=== PATIENT | female | born 1955 | race Two or more races ===

== ENCOUNTER 2020-10-15 18:53 | Inpatient (IN) | payer MEDICAID ==
[~2020-10-15] VITALS: Ht 165.1 cm; Wt 160.9 kg
[~2020-10-15 18:53] MED LIST: WARF10TA PO
[2020-10-15] MEDS ORDERED: IPRATROPIUM BROM 0.5 MG/2.5ML INH SOL HHN ONE (20:30)
[2020-10-15] MEDS ORDERED: ALBUTEROL SULF 2.5 MG/0.5ML(0.5%) NEB SOLN HHN ONE (20:30)
[2020-10-15 20:39] LABS: Basophils # (auto) 0.1 10 ^3/uL (0-0.2); Eosinophils # (auto) 0.1 10 ^3/uL (0-0.8); Lymphocytes # (auto) 0.9 10 ^3/uL (0.4-5.4); Mean Corpuscular Volume 67.2 fL (80.0-100.0); Neutrophils # (auto) 2.9 10 ^3/uL (1.6-8.6); White Blood Cell 4.4 10^3/uL (4.4-10.8)
[2020-10-15 20:42] LABS: Basophils % (auto) 1.1 % (0.0-2.0); Eosinophils % (auto) 1.5 % (0.0-7.0); Hematocrit 18.1 % (36.0-46.0); Lymphocytes % (auto) 21.1 % (10.0-50.0); Mean Corpuscular Hemoglobin 19.4 pg (28.0-32.0); Mean Corpuscular Hgb Conc. 28.8 g/dL (32.0-36.0); Monocytes # (auto) 0.4 10 ^3/uL (0-1.3); Monocytes % (auto) 9.3 % (0.0-12.0); Nucleated Red Blood Cells % 0.3 %
[2020-10-15 20:49] LABS: Red Cell Distribution Width 20.7 % (11.8-14.3)
[2020-10-15 20:55] LABS: Hemoglobin 5.2 g/dL (12.2-16.2)
[2020-10-15 20:59] LABS: Albumin 3.4 g/dL (3.4-5.0); BUN/Creatinine Ratio 22.7; Calcium 8.6 mg/dL (8.5-10.1); Potassium 4.1 mmol/L (3.5-5.1)
[2020-10-15 21:04] LABS: Bilirubin, Total 0.6 mg/dL (0.2-1.0); Total Protein 7.1 g/dL (6.4-8.2)
[2020-10-15] MEDS ORDERED: DEXTROSE (50%) 50ML SYRG IV PRN (22:30)
[2020-10-15] MEDS ORDERED: FUROSEMIDE 40 MG/4 ML VIAL IV ONE (22:30)
[2020-10-15] MEDS ORDERED: MORPHINE SULFATE INJECTION 2 MG/ML SYRG IV PRN (22:30)
[2020-10-15] MEDS ORDERED: ACETAMINOPHEN 325 MG TAB PO PRN (22:30)
[2020-10-15] MEDS ORDERED: ONDANSETRON HCL 4 MG/2 ML VIAL IV PRN (22:30)
[2020-10-15] MEDS ORDERED: NITROGLYCERIN 0.4 MG SL TAB SL PRN (22:30)
[2020-10-16] VITALS (18 sets, daily range): BP systolic 108–157; BP diastolic 51–101
[2020-10-16] MEDS: HYDROcodone-ACET 5/325MG TAB PO PRN ×2 (01:01→09:02)
[2020-10-16 03:20] LABS: Urine Bacteria FEW /hpf (None Seen); Urine Blood 1+ /uL (Negative); Urine Hyaline Cast FEW /lpf (0 - 2); Urine Mucus FEW (None Seen); Urine Specific Gravity 1.019 (1.001-1.035); Urine WBC 567 /hpf (0 - 5)
[2020-10-16] MEDS: MORPHINE SULFATE INJECTION 2 MG/ML SYRG IV PRN ×2 (03:38→11:45)
[2020-10-16] MEDS ORDERED: GLIP5TAB12 PO (05:26)
[2020-10-16] MEDS ORDERED: LISI40TA11 PO (05:26)
[2020-10-16] MEDS ORDERED: CHOL20007 PO (06:00)
[2020-10-16] MEDS ORDERED: ASPI-498 (06:00)
[2020-10-16] MEDS ORDERED: TICA90TA PO (06:00)
[2020-10-16] MEDS ORDERED: CARV25TA PO (06:00)
[2020-10-16] MEDS ORDERED: DILT30TA PO (06:00)
[2020-10-16] MEDS ORDERED: CAR125T OR (06:00)
[2020-10-16] MEDS ORDERED: HYDR-4798 PO (06:00)
[2020-10-16] MEDS: InsuLIN REG 1unit/0.01ml Soln (100units/ml) SC SCH ×4 (06:57→21:43)
[2020-10-16] MEDS: ACCU-CHEK COMFORT CURVE STRIP VI SCH ×4 (06:57→21:43)
[2020-10-16] MEDS: LISINOPRIL 20 MG TAB PO SCH ×2 (09:20→22:55)
[2020-10-16] MEDS: PANTOPRAZOLE 40 MG TAB PO SCH (09:21)
[2020-10-16] MEDS ORDERED: ENOXAPARIN SOD 40 MG/0.4 ML SYRINGE SC SCH (10:00)
[2020-10-16] MEDS: ASPirin 81 mg TAB PO SCH (10:00)
[2020-10-16 11:00] LABS: Basophils # (auto) 0 10 ^3/uL (0-0.2); Eosinophils # (auto) 0.1 10 ^3/uL (0-0.8); Lymphocytes # (auto) 0.6 10 ^3/uL (0.4-5.4); Mean Corpuscular Hemoglobin 20.7 pg (28.0-32.0)
[2020-10-16 11:02] LABS: Basophils % (auto) 0.9 % (0.0-2.0); Eosinophils % (auto) 1.5 % (0.0-7.0); Hematocrit 22.4 % (36.0-46.0); Lymphocytes % (auto) 10.9 % (10.0-50.0); Mean Corpuscular Hgb Conc. 29.7 g/dL (32.0-36.0); Mean Corpuscular Volume 69.6 fL (80.0-100.0); Monocytes # (auto) 0.5 10 ^3/uL (0-1.3); Monocytes % (auto) 9.6 % (0.0-12.0); Neutrophils % (auto) 77.1 % (37.0-80.0); Nucleated Red Blood Cells % 0.7 %; Red Blood Cells 3.21 10^6/uL (4.0-5.20); White Blood Cell 5.2 10^3/uL (4.4-10.8)
[2020-10-16 11:16] LABS: Red Cell Distribution Width 22.2 % (11.8-14.3)
[2020-10-16 11:18] LABS: BUN/Creatinine Ratio 22.5; Calcium 8.4 mg/dL (8.5-10.1); Magnesium 2.2 mg/dL (1.6-2.6); Potassium 3.7 mmol/L (3.5-5.1)
[2020-10-16 11:19] LABS: Hemoglobin 6.7 g/dL (12.2-16.2)
[2020-10-16] MEDS ORDERED: FUROSEMIDE 20 MG/2 ML VIAL IV ONE ×2 (11:45)
[2020-10-16 13:57] LABS: Hematocrit 23.1 % (36.0-46.0)
[2020-10-16 14:38] LABS: Hemoglobin 6.9 g/dL (12.2-16.2)
[2020-10-16] MEDS: HYDROcodone-ACET 10/325MG TAB PO PRN (18:03)
[2020-10-16] MEDS: POLYETHYLENE GLYCOL 17 GM PWDR PO SCH (18:08)
[2020-10-16] MEDS: DOCUSATE SOD 100 MG CAP PO SCH ×2 (18:09→22:54)
[2020-10-16] MEDS ORDERED: MORPHINE SULFATE INJECTION 2 MG/ML SYRG IV PRN (20:15)
[2020-10-16] MEDS: ATORVASTATIN 20 MG TAB PO SCH (22:54)
[2020-10-17] VITALS (7 sets, daily range): BP systolic 109–138; BP diastolic 63–98
[2020-10-17 01:25] LABS: Hematocrit 25.9 % (36.0-46.0); Hemoglobin 7.9 g/dL (12.2-16.2)
[2020-10-17 01:45] LABS: % Iron Saturation 10.1 % (15-50)
[2020-10-17 05:12] LABS: Hematocrit 26.3 % (36.0-46.0)
[2020-10-17 05:14] LABS: Hemoglobin 8.2 g/dL (12.2-16.2)
[2020-10-17] MEDS: IPRATROPIUM BROM 0.5 MG/2.5ML INH SOL NEB PRN ×2 (05:35→11:49)
[2020-10-17] MEDS: ALBUTEROL SULF 2.5 MG/0.5ML(0.5%) NEB SOLN NEB PRN ×2 (05:35→11:49)
[2020-10-17] MEDS: ACCU-CHEK COMFORT CURVE STRIP VI SCH ×4 (05:42→21:44)
[2020-10-17] MEDS: DOCUSATE SOD 100 MG CAP PO SCH ×3 (05:42→21:43)
[2020-10-17] MEDS: InsuLIN REG 1unit/0.01ml Soln (100units/ml) SC SCH ×4 (05:57→21:49)
[2020-10-17] MEDS: HYDROcodone-ACET 10/325MG TAB PO PRN ×3 (06:38→21:44)
[2020-10-17] MEDS: POLYETHYLENE GLYCOL 17 GM PWDR PO SCH (09:45)
[2020-10-17] MEDS: LISINOPRIL 20 MG TAB PO SCH ×2 (09:46→21:48)
[2020-10-17] MEDS: PANTOPRAZOLE 40 MG TAB PO SCH (09:46)
[2020-10-17] MEDS: ASPirin 81 mg TAB PO SCH (09:46)
[2020-10-17] MEDS ORDERED: TICAGRELOR 90 MG TAB PO SCH (10:00)
[2020-10-17] MEDS: FERROUS SULFATE 325mg EC TAB PO SCH ×2 (13:00→18:06)
[2020-10-17 17:43] LABS: Albumin 3.3 g/dL (3.4-5.0); Calcium 8.6 mg/dL (8.5-10.1); Potassium 3.5 mmol/L (3.5-5.1)
[2020-10-17 17:44] LABS: % Iron Saturation 64.1 % (15-50)
[2020-10-17 17:46] LABS: BUN/Creatinine Ratio 18.8; Bilirubin, Total 0.8 mg/dL (0.2-1.0); CRP High Sensitivity 0.83 mg/dL (< 0.3); Total Protein 7.3 g/dL (6.4-8.2)
[2020-10-17 18:01] LABS: Ferritin 8.1 ng/mL (10-322)
[2020-10-17] MEDS: ATORVASTATIN 20 MG TAB PO SCH (21:43)
[2020-10-18] MEDS: HYDROcodone-ACET 10/325MG TAB PO PRN ×2 (01:42→10:58)
[2020-10-18 05:00] VITALS: BP 144/107
[2020-10-18 05:10] LABS: Basophils # (auto) 0 10 ^3/uL (0-0.2); Basophils % (auto) 0.6 % (0.0-2.0); Eosinophils # (auto) 0.1 10 ^3/uL (0-0.8); Eosinophils % (auto) 2.6 % (0.0-7.0); Hematocrit 26.1 % (36.0-46.0); Hemoglobin 8.1 g/dL (12.2-16.2); Mean Corpuscular Hemoglobin 22.7 pg (28.0-32.0); Mean Corpuscular Hgb Conc. 31.2 g/dL (32.0-36.0); Mean Corpuscular Volume 72.8 fL (80.0-100.0); Monocytes # (auto) 0.5 10 ^3/uL (0-1.3); Neutrophils # (auto) 3.8 10 ^3/uL (1.6-8.6); Neutrophils % (auto) 69.8 % (37.0-80.0); Nucleated Red Blood Cells % 0.3 %; Red Blood Cells 3.59 10^6/uL (4.0-5.20); White Blood Cell 5.4 10^3/uL (4.4-10.8)
[2020-10-18 05:11] LABS: Red Cell Distribution Width 23.8 % (11.8-14.3)
[2020-10-18 05:39] LABS: Potassium 3.7 mmol/L (3.5-5.1)
[2020-10-18 05:44] LABS: BUN/Creatinine Ratio 20.4; Calcium 8.7 mg/dL (8.5-10.1); Magnesium 2.1 mg/dL (1.6-2.6)
[2020-10-18] MEDS: DOCUSATE SOD 100 MG CAP PO SCH ×2 (06:15→14:00)
[2020-10-18] MEDS: ACCU-CHEK COMFORT CURVE STRIP VI SCH ×2 (06:15→11:17)
[2020-10-18] MEDS: InsuLIN REG 1unit/0.01ml Soln (100units/ml) SC SCH ×2 (06:15→11:17)
[2020-10-18 07:40] VITALS: BP 133/82
[2020-10-18] MEDS: FERROUS SULFATE 325mg EC TAB PO SCH ×2 (08:13→12:11)
[2020-10-18 08:42] VITALS: BP 133/82
[2020-10-18] MEDS: ASPirin 81 mg TAB PO SCH (09:47)
[2020-10-18] MEDS: PANTOPRAZOLE 40 MG TAB PO SCH (09:47)
[2020-10-18] MEDS: POLYETHYLENE GLYCOL 17 GM PWDR PO SCH (09:48)
[2020-10-18] MEDS: LISINOPRIL 20 MG TAB PO SCH (09:48)
[2020-10-18] MEDS ORDERED: FER325T PO (11:56)
[2020-10-18] MEDS ORDERED: DOCU100C10 PO (11:56)
[2020-10-18 12:55] LABS: Free T4 (Free Thyroxine) 1.14 ng/dL (0.89-1.76)
[2020-10-18 12:56] LABS: Folate (Folic Acid) 22.6 ng/mL (5.38-24)
[2020-10-18 13:00] VITALS: BP 144/90
[2020-10-18 15:13] VITALS: BP 144/90
== END 2020-10-18 17:10 | disposition home health service (06) | DRG 663 ==
LOC: ER 18:53 → TELE 22:16 → TELE-CENTR 10-16 03:00
PROVIDERS: ADMIT Internal Medicine; ATTEND Internal Medicine
PROC: 30233N1 Transfusion of Nonautologous Red Blood Cells into Peripheral Vein, Percutaneous Approach (ICD-10-PCS; principal; 2020-10-16)
DX: D50.9 Iron deficiency anemia, unspecified (principal); E11.649 Type 2 diabetes mellitus with hypoglycemia without coma; I11.0 Hypertensive heart disease with heart failure; I50.9 Heart failure, unspecified; J44.9 Chronic obstructive pulmonary disease, unspecified; Z68.43 Body mass index [BMI] 50.0-59.9, adult; E66.2 Morbid (severe) obesity with alveolar hypoventilation; Z20.822 Contact with and (suspected) exposure to COVID-19; R09.02 Hypoxemia; K59.00 Constipation, unspecified; M19.90 Unspecified osteoarthritis, unspecified site; E78.5 Hyperlipidemia, unspecified; I25.10 Atherosclerotic heart disease of native coronary artery without angina pectoris; Z79.82 Long term (current) use of aspirin; Z79.84 Long term (current) use of oral hypoglycemic drugs; Z95.5 Presence of coronary angioplasty implant and graft; Z79.899 Other long term (current) drug therapy; Z83.3 Family history of diabetes mellitus; Z79.01 Long term (current) use of anticoagulants; Z79.02 Long term (current) use of antithrombotics/antiplatelets
CPT/HCPCS: 36415; 36430; 71046; 76856; 80048; 80053; 81001; 82270; 82607; 82668; 82728; 82746; 82962; 83010; 83540; 83550; 83615; 83735; 83880; 84439; 84443; 84484; 85014; 85018; 85025; 85045; 85652; 86141; 86850; 86880; 86885; 86900; 86901; 86920; 87426; 93005; 93970; 94640; 96374; 96375; 97163; 99291; G0378; J1815

== ENCOUNTER 2021-01-09 11:16 | Inpatient (IN) | payer MEDICAID ==
[~2021-01-09] VITALS: Ht 165.1 cm; Wt 162.0 kg
[~2021-01-09 11:16] MED LIST changes: +ASPI-498; +CAR125T OR; +CARV25TA PO; +CHOL20007 PO; +DILT30TA PO; +DOCU100C10 PO; +FER325T PO; +GLIP5TAB12 PO; +HYDR-4798 PO; +LISI40TA11 PO; -WARF10TA PO
[2021-01-09] MEDS ORDERED: FUROSEMIDE 40 MG/4 ML VIAL IV ONE (12:15)
[2021-01-09 12:25] LABS: Basophils # (auto) 0 10 ^3/uL (0-0.2); Eosinophils # (auto) 0.1 10 ^3/uL (0-0.8); Hemoglobin 7.7 g/dL (12.2-16.2); Lymphocytes # (auto) 0.6 10 ^3/uL (0.4-5.4); Mean Corpuscular Volume 76.7 fL (80.0-100.0); Monocytes # (auto) 0.3 10 ^3/uL (0-1.3); Neutrophils # (auto) 2.4 10 ^3/uL (1.6-8.6)
[2021-01-09 12:27] LABS: Basophils % (auto) 0.7 % (0.0-2.0); Eosinophils % (auto) 2.9 % (0.0-7.0); Hematocrit 25.7 % (36.0-46.0); Lymphocytes % (auto) 18.1 % (10.0-50.0); Mean Corpuscular Hemoglobin 23.1 pg (28.0-32.0); Mean Corpuscular Hgb Conc. 30.2 g/dL (32.0-36.0); Monocytes % (auto) 9.4 % (0.0-12.0); Neutrophils % (auto) 68.9 % (37.0-80.0); Red Blood Cells 3.35 10^6/uL (4.0-5.20); White Blood Cell 3.5 10^3/uL (4.4-10.8)
[2021-01-09 12:30] LABS: Red Cell Distribution Width 21.7 % (11.8-14.3)
[2021-01-09 12:31] LABS: Albumin 3.1 g/dL (3.4-5.0); Calcium 8.3 mg/dL (8.5-10.1); Potassium 4.3 mmol/L (3.5-5.1)
[2021-01-09 12:37] LABS: BUN/Creatinine Ratio 23.5; Bilirubin, Total 0.4 mg/dL (0.2-1.0); Total Protein 7.5 g/dL (6.4-8.2)
[2021-01-09 17:42] LABS: Urine Bacteria FEW /hpf (None Seen); Urine Blood Negative /uL (Negative); Urine Hyaline Cast FEW /lpf (0 - 2); Urine Mucus FEW (None Seen); Urine Specific Gravity 1.024 (1.001-1.035); Urine WBC 32 /hpf (0 - 5)
[2021-01-09] MEDS ORDERED: MORPHINE SULF INJ 2 MG/ML SYRINGE 1ML IV PRN (18:15)
[2021-01-09] MEDS ORDERED: NITROGLYCERIN 0.4 MG SL TAB SL PRN (18:15)
[2021-01-09 22:26] VITALS: BP 131/85
[2021-01-09 22:40] VITALS: BP 131/85
[2021-01-09] MEDS: ONDANSETRON HCL 4 MG/2 ML VIAL IV PRN (23:30)
[2021-01-09] MEDS: MORPHINE SULF INJ 2 MG/ML SYRINGE 1ML IV PRN (23:30)
[2021-01-09] MEDS: POTASSIUM CHL 20 Meq TABLET PO SCH (23:30)
[2021-01-10] MEDS: LEVALBUTEROL HCL 1.25 MG/3 ML NEB NEB SCH ×5 (00:29→23:48)
[2021-01-10] MEDS ORDERED: PNEUMOCOCCAL VACC POLYS 25 MCG/0.5 ML VIAL IM ONE (02:15)
[2021-01-10] MEDS: ONDANSETRON HCL 4 MG/2 ML VIAL IV PRN (04:25)
[2021-01-10] MEDS: MORPHINE SULF INJ 2 MG/ML SYRINGE 1ML IV PRN ×3 (04:25→23:10)
[2021-01-10 05:08] VITALS: BP 125/82
[2021-01-10 06:01] LABS: Calcium 8.7 mg/dL (8.5-10.1); Potassium 4.4 mmol/L (3.5-5.1)
[2021-01-10 06:03] LABS: BUN/Creatinine Ratio 26.8
[2021-01-10] MEDS: BUMETANIDE 2.5mg/10ml (0.25 mg/ml) INJ IV SCH ×2 (06:07→18:37)
[2021-01-10 09:00] VITALS: BP 113/90
[2021-01-10] MEDS: cefTRIAXone 1GM/50ML D5W 50 ML IV SCH (10:38)
[2021-01-10] MEDS: POTASSIUM CHL 20 Meq TABLET PO SCH ×2 (10:38→23:05)
[2021-01-10] MEDS: FAMOTIDINE 20 MG TAB PO SCH (10:39)
[2021-01-10] MEDS: ENOXAPARIN SOD 40 MG/0.4 ML SYRINGE SC SCH (10:39)
[2021-01-10] MEDS: IPRATROPIUM BROM 0.5 MG/2.5ML INH SOL NEB SCH ×2 (11:46→19:26)
[2021-01-10 13:00] VITALS: BP 128/85
[2021-01-10] MEDS: MAGNESIUM SULFATE 1GM/100ML 100 ML IV SCH ×2 (13:01→14:15)
[2021-01-10 17:00] VITALS: BP 106/54
[2021-01-10 20:00] VITALS: BP 106/54
[2021-01-10 22:00] VITALS: BP 118/66
[2021-01-11] MEDS: MORPHINE SULF INJ 2 MG/ML SYRINGE 1ML IV PRN ×2 (03:03→14:41)
[2021-01-11 05:00] VITALS: BP 129/65
[2021-01-11] MEDS: IPRATROPIUM BROM 0.5 MG/2.5ML INH SOL NEB SCH ×3 (05:43→19:07)
[2021-01-11] MEDS: LEVALBUTEROL HCL 1.25 MG/3 ML NEB NEB SCH ×3 (05:43→19:07)
[2021-01-11 06:07] LABS: BUN/Creatinine Ratio 24.6; Calcium 8.8 mg/dL (8.5-10.1); Potassium 3.9 mmol/L (3.5-5.1)
[2021-01-11] MEDS: BUMETANIDE 2.5mg/10ml (0.25 mg/ml) INJ IV SCH (06:11)
[2021-01-11 09:00] VITALS: BP 117/71
[2021-01-11] MEDS: cefTRIAXone 1GM/50ML D5W 50 ML IV SCH (09:48)
[2021-01-11] MEDS: POTASSIUM CHL 20 Meq TABLET PO SCH ×2 (09:48→23:05)
[2021-01-11] MEDS: FAMOTIDINE 20 MG TAB PO SCH (09:48)
[2021-01-11] MEDS: ENOXAPARIN SOD 40 MG/0.4 ML SYRINGE SC SCH (09:49)
[2021-01-11 13:00] VITALS: BP 152/79
[2021-01-11 17:00] VITALS: BP 115/73
[2021-01-11] MEDS ORDERED: HYDROcodone-ACET 10/325MG TAB PO PRN (17:30)
[2021-01-11] MEDS: HYDROcodone-ACET 10/325MG TAB PO PRN (17:36)
[2021-01-11 22:00] VITALS: BP 125/74
[2021-01-11] MEDS: SENNA 8.6 MG TAB PO SCH (23:05)
[2021-01-12] MEDS: HYDROcodone-ACET 10/325MG TAB PO PRN ×4 (00:39→19:02)
[2021-01-12] MEDS: LEVALBUTEROL HCL 1.25 MG/3 ML NEB NEB SCH ×4 (00:44→18:46)
[2021-01-12 05:00] VITALS: BP 115/69
[2021-01-12] MEDS: IPRATROPIUM BROM 0.5 MG/2.5ML INH SOL NEB SCH ×3 (07:05→18:47)
[2021-01-12 09:00] VITALS: BP 105/63
[2021-01-12] MEDS: cefTRIAXone 1GM/50ML D5W 50 ML IV SCH (09:46)
[2021-01-12] MEDS: POTASSIUM CHL 20 Meq TABLET PO SCH ×2 (09:47→22:00)
[2021-01-12] MEDS: BUMETANIDE 2.5mg/10ml (0.25 mg/ml) INJ IV SCH (09:47)
[2021-01-12] MEDS: FAMOTIDINE 20 MG TAB PO SCH (09:48)
[2021-01-12] MEDS: ENOXAPARIN SOD 40 MG/0.4 ML SYRINGE SC SCH (09:49)
[2021-01-12 13:59] VITALS: BP 138/98
[2021-01-12 17:00] VITALS: BP 112/64
[2021-01-12 18:52] VITALS: BP 112/64
[2021-01-12] MEDS: SENNA 8.6 MG TAB PO SCH (22:00)
[2021-01-12 22:05] VITALS: BP 126/95
[2021-01-13] MEDS: LEVALBUTEROL HCL 1.25 MG/3 ML NEB NEB SCH ×3 (00:13→11:26)
[2021-01-13] MEDS: HYDROcodone-ACET 10/325MG TAB PO PRN ×3 (01:01→13:12)
[2021-01-13 05:21] VITALS: BP 133/92
[2021-01-13] MEDS: IPRATROPIUM BROM 0.5 MG/2.5ML INH SOL NEB SCH ×2 (06:50→11:26)
[2021-01-13 09:00] VITALS: BP 124/72
[2021-01-13] MEDS: POTASSIUM CHL 20 Meq TABLET PO SCH (09:10)
[2021-01-13] MEDS: BUMETANIDE 2.5mg/10ml (0.25 mg/ml) INJ IV SCH (09:10)
[2021-01-13] MEDS: FAMOTIDINE 20 MG TAB PO SCH (09:11)
[2021-01-13] MEDS: ENOXAPARIN SOD 40 MG/0.4 ML SYRINGE SC SCH (09:11)
[2021-01-13] MEDS: cefTRIAXone 1GM/50ML D5W 50 ML IV SCH (09:11)
[2021-01-13] MEDS ORDERED: BUME2TAB5 PO (12:43)
[2021-01-13] MEDS ORDERED: CAR125T OR (12:43)
[2021-01-13] MEDS ORDERED: LISI40TA11 PO (12:43)
[2021-01-13] MEDS ORDERED: CIPR500T4 PO (12:43)
[2021-01-13 13:28] VITALS: BP 142/64
[2021-01-13 15:46] VITALS: BP 124/72
[2021-01-13 16:33] VITALS: BP 140/78
== END 2021-01-13 17:42 | disposition home or self-care (01) | DRG 194 ==
LOC: ER 11:16 → TELE 18:09 → TELE-WESTW 22:30
PROVIDERS: ADMIT Hospitalist; ATTEND Hospitalist
PROC: 5A09357 Assistance with Respiratory Ventilation, Less than 24 Consecutive Hours, Continuous Positive Airway Pressure (ICD-10-PCS; principal; 2021-01-09)
PROC: 5A09357 Assistance with Respiratory Ventilation, Less than 24 Consecutive Hours, Continuous Positive Airway Pressure (ICD-10-PCS; 2021-01-10)
PROC: 5A09357 Assistance with Respiratory Ventilation, Less than 24 Consecutive Hours, Continuous Positive Airway Pressure (ICD-10-PCS; 2021-01-11)
PROC: 5A09357 Assistance with Respiratory Ventilation, Less than 24 Consecutive Hours, Continuous Positive Airway Pressure (ICD-10-PCS; 2021-01-12)
DX: I13.0 Hypertensive heart and chronic kidney disease with heart failure and stage 1 through stage 4 chronic kidney disease, or unspecified chronic kidney disease (principal); J96.01 Acute respiratory failure with hypoxia; J96.02 Acute respiratory failure with hypercapnia; E11.22 Type 2 diabetes mellitus with diabetic chronic kidney disease; E44.1 Mild protein-calorie malnutrition; E66.2 Morbid (severe) obesity with alveolar hypoventilation; I48.91 Unspecified atrial fibrillation; N18.9 Chronic kidney disease, unspecified; N39.0 Urinary tract infection, site not specified; Z20.822 Contact with and (suspected) exposure to COVID-19; Z68.43 Body mass index [BMI] 50.0-59.9, adult; Z82.49 Family history of ischemic heart disease and other diseases of the circulatory system; Z83.3 Family history of diabetes mellitus; I50.43 Acute on chronic combined systolic (congestive) and diastolic (congestive) heart failure
CPT/HCPCS: 36415; 36600; 71045; 80048; 80053; 81001; 82805; 83880; 84439; 84443; 84484; 85025; 87426; 93005; 93306; 93970; 94640; 94645; 94660; 96374; G0378; J0696; J2405

== ENCOUNTER 2021-04-13 18:29 | Inpatient (IN) | payer MEDICAID ==
[~2021-04-13] VITALS: Ht 162.6 cm; Wt 122.1 kg
[~2021-04-13 18:29] MED LIST changes: -ASPI-498; +ASPI-498 PO; +BUME2TAB5 PO; +CIPR500T4 PO; -HYDR-4798 PO
[2021-04-13] MEDS ORDERED: DEXTROSE 50% SYRINGE 50 ML IV ONE (20:00)
[2021-04-13 20:19] VITALS: BP 108/53
[2021-04-13 20:20] VITALS: BP 108/53
[2021-04-13 20:37] LABS: Basophils # (auto) 0 10 ^3/uL (0-0.2); Eosinophils # (auto) 0 10 ^3/uL (0-0.8); Lymphocytes # (auto) 0.4 10 ^3/uL (0.4-5.4); Monocytes # (auto) 0.2 10 ^3/uL (0-1.3); Monocytes % (auto) 10.7 % (0.0-12.0); Neutrophils # (auto) 1.5 10 ^3/uL (1.6-8.6); White Blood Cell 2.2 10^3/uL (4.4-10.8)
[2021-04-13 20:42] LABS: Basophils % (auto) 0.5 % (0.0-2.0); Eosinophils % (auto) 0.2 % (0.0-7.0); Hematocrit 44.3 % (36.0-46.0); Hemoglobin 14.5 g/dL (12.2-16.2); Mean Corpuscular Hemoglobin 30.8 pg (28.0-32.0); Mean Corpuscular Hgb Conc. 32.6 g/dL (32.0-36.0); Mean Corpuscular Volume 94.4 fL (80.0-100.0); Neutrophils % (auto) 70.6 % (37.0-80.0); Nucleated Red Blood Cells % 1.2 %
[2021-04-13 20:43] LABS: Red Cell Distribution Width 22.6 % (11.8-14.3)
[2021-04-13 20:47] LABS: Albumin 3.3 g/dL (3.4-5.0); Calcium 8.5 mg/dL (8.5-10.1); Potassium 3.9 mmol/L (3.5-5.1)
[2021-04-13 20:49] LABS: BUN/Creatinine Ratio 30.6
[2021-04-13 20:54] LABS: Bilirubin, Total 0.7 mg/dL (0.2-1.0); Total Protein 7.8 g/dL (6.4-8.2)
[2021-04-13] MEDS ORDERED: DEXTROSE (50%) 50ML SYRG IV ONE ×2 (21:00→21:15)
[2021-04-13] MEDS ORDERED: HYDROcodone-ACET 5/325MG TAB PO ONE (21:00)
[2021-04-13] MEDS ORDERED: SODIUM CHLORIDE 0.9% 1,000 ML IV ONE (21:45)
[2021-04-13 23:10] VITALS: BP 96/52
[2021-04-13] MEDS ORDERED: DexAMETHasone SOD PHOS 10MG/1ML VIAL INJ IV ONE (23:30)
[2021-04-13] MEDS ORDERED: AZITHROMYCIN 500MG/ 250ML 250 ML IV ONE (23:30)
[2021-04-13] MEDS ORDERED: ASPirin 325 MG TAB PO ONE (23:30)
[2021-04-14] MEDS ORDERED: cefTRIAXone 1GM/50ML D5W 50 ML IV ONE
[2021-04-14 00:35] LABS: INR 1.11 (0.9-1.15)
[2021-04-14 00:48] VITALS: BP 96/52
[2021-04-14] MEDS ORDERED: IOHEXOL 350 MG/ML 100ML IJ ONE (01:42)
[2021-04-14] MEDS ORDERED: NITROGLYCERIN 0.4 MG SL TAB SL PRN (02:00)
[2021-04-14] MEDS ORDERED: DOCUSATE SOD 100 MG CAP PO PRN (02:00)
[2021-04-14] MEDS ORDERED: MORPHINE SULFATE INJECTION 2 MG/ML SYRG IV PRN (02:00)
[2021-04-14 02:10] VITALS: BP 137/81
[2021-04-14] MEDS: D5W/SOD CHL 0.45% 1,000 ML IV SCH ×2 (03:04→21:56)
[2021-04-14] MEDS: ASCORBIC ACID 500 MG TAB PO SCH ×2 (03:05→10:27)
[2021-04-14 04:40] VITALS: BP 111/72
[2021-04-14] MEDS: HYDROcodone-ACET 5/325MG TAB PO PRN ×3 (04:45→21:56)
[2021-04-14 07:24] LABS: Urine Bacteria FEW /hpf (None Seen); Urine Blood Negative /uL (Negative); Urine Mucus FEW (None Seen); Urine Specific Gravity 1.022 (1.001-1.035); Urine WBC 8 /hpf (0 - 5)
[2021-04-14] MEDS: ALBUTEROL SULF HFA 90MCG INH 200DOSE IN PRN ×2 (09:47→23:24)
[2021-04-14] MEDS: BUDESONIDE (INHALATION) 180 MCG IH IN SCH ×2 (09:47→19:30)
[2021-04-14] MEDS ORDERED: ENOXAPARIN SOD 40 MG/0.4 ML SYRINGE SC SCH (10:00)
[2021-04-14] MEDS ORDERED: AZITHROMYCIN 500MG/ 250ML 250 ML IV SCH (10:00)
[2021-04-14] MEDS ORDERED: REMDESIVIR PER PHARMACY 0 ML IV SCH (10:15)
[2021-04-14] MEDS ORDERED: DEXTROSE (50%) 50ML SYRG IV PRN (10:15)
[2021-04-14] MEDS: DexAMETHasone SOD PHOS 10MG/1ML VIAL INJ IV SCH (10:27)
[2021-04-14] MEDS: DOXYCYCLINE 100MG/250ML 250 ML IV SCH ×2 (10:27→21:56)
[2021-04-14] MEDS: ZINC SULFATE 220mg CAP or TAB PO SCH (10:27)
[2021-04-14] MEDS: CHOLECALCIFEROL (VITD3) 2,000 UNIT CAP/TAB PO SCH (10:28)
[2021-04-14] MEDS ORDERED: DIGOXIN (250MCG/ML) 2 ML AMPULE IV ONE (11:00)
[2021-04-14] MEDS: ENOXAPARIN SOD 40 MG/0.4 ML SYRINGE SC SCH (12:00)
[2021-04-14] MEDS: InsuLIN REG 1unit/0.01ml Soln (100units/ml) SC SCH ×2 (12:01→18:22)
[2021-04-14] MEDS: ACCU-CHEK COMFORT CURVE STRIP VI SCH ×2 (12:01→18:22)
[2021-04-14] MEDS ORDERED: REMDESIVIR 200 MG in NS 210ml LOADING DOSE ADULT IV ONE (13:00)
[2021-04-14] MEDS ORDERED: HYDR-4798 PO (16:17)
[2021-04-14] MEDS ORDERED: BUME2TAB5 PO (16:19)
[2021-04-14 23:43] VITALS: BP 131/86
[2021-04-15 02:15] VITALS: BP 144/84
[2021-04-15] MEDS: LORazepam 0.5 MG TAB PO PRN ×2 (03:30→21:49)
[2021-04-15] MEDS ORDERED: FUROSEMIDE 20 MG/2 ML VIAL IV ONE (04:15)
[2021-04-15] MEDS: ACCU-CHEK COMFORT CURVE STRIP VI SCH ×4 (05:02→18:13)
[2021-04-15] MEDS: InsuLIN REG 1unit/0.01ml Soln (100units/ml) SC SCH ×4 (05:05→18:15)
[2021-04-15] MEDS: ALBUTEROL SULF HFA 90MCG INH 200DOSE IN PRN ×2 (06:12→21:35)
[2021-04-15] MEDS: BUDESONIDE (INHALATION) 180 MCG IH IN SCH ×2 (06:12→21:34)
[2021-04-15 06:47] LABS: Hematocrit 44.1 % (36.0-46.0); Hemoglobin 14.2 g/dL (12.2-16.2); Mean Corpuscular Hemoglobin 30.6 pg (28.0-32.0); Mean Corpuscular Hgb Conc. 32.3 g/dL (32.0-36.0); Mean Corpuscular Volume 94.9 fL (80.0-100.0); Red Blood Cells 4.64 10^6/uL (4.0-5.20); White Blood Cell 2.4 10^3/uL (4.4-10.8)
[2021-04-15 06:56] LABS: Albumin 2.6 g/dL (3.4-5.0); Calcium 8.3 mg/dL (8.5-10.1); Potassium 4.3 mmol/L (3.5-5.1)
[2021-04-15 07:20] LABS: BUN/Creatinine Ratio 37.5; Bilirubin, Total 0.6 mg/dL (0.2-1.0); CRP High Sensitivity 5.49 mg/dL (< 0.3); Total Protein 7.1 g/dL (6.4-8.2)
[2021-04-15 07:24] LABS: Red Cell Distribution Width 23.4 % (11.8-14.3)
[2021-04-15 07:26] LABS: Basophils % (manual) 0 (0.0-2.0); Blast Cells 0; Eosinophils % (manual) 0 (0-7); Myelocytes % 0; Promyelocytes % 0; Reactive Lymphocytes 0
[2021-04-15] MEDS: DOXYCYCLINE 100MG/250ML 250 ML IV SCH (09:17)
[2021-04-15] MEDS: DexAMETHasone SOD PHOS 10MG/1ML VIAL INJ IV SCH ×2 (09:17→13:01)
[2021-04-15] MEDS: ZINC SULFATE 220mg CAP or TAB PO SCH (09:18)
[2021-04-15] MEDS: ASCORBIC ACID 500 MG TAB PO SCH (09:18)
[2021-04-15] MEDS: CHOLECALCIFEROL (VITD3) 2,000 UNIT CAP/TAB PO SCH (09:18)
[2021-04-15] MEDS: ENOXAPARIN SOD 40 MG/0.4 ML SYRINGE SC SCH (09:18)
[2021-04-15 10:32] LABS: Band Neutrophils % (manual) 14; Lymphocytes % (manual) 12 (10.0-50.0); Metamyelocytes % 1; Monocytes % (manual) 10 (0-12)
[2021-04-15] MEDS: D5W/SOD CHL 0.45% 1,000 ML IV SCH (11:32)
[2021-04-15] MEDS: REMDESIVIR 100mg 100 MG in SODIUM CHL 0.9% 230 ML IV SCH (15:05)
[2021-04-15] MEDS: HYDROcodone-ACET 5/325MG TAB PO PRN (17:29)
[2021-04-15] MEDS: dilTIAZem 125mg/125ml BAG KIT 125 ML IV SCH (18:07)
[2021-04-15 21:35] VITALS: BP 146/47
[2021-04-15] MEDS ORDERED: MORPHINE SULFATE INJECTION 2 MG/ML SYRG IV PRN (23:15)
[2021-04-16] VITALS (11 sets, daily range): BP systolic 106–167; BP diastolic 68–104
[2021-04-16] MEDS: DOXYCYCLINE 100MG/250ML 250 ML IV SCH ×3 (00:47→21:19)
[2021-04-16] MEDS: ACCU-CHEK COMFORT CURVE STRIP VI SCH ×4 (00:48→18:17)
[2021-04-16] MEDS: InsuLIN REG 1unit/0.01ml Soln (100units/ml) SC SCH ×4 (00:48→18:20)
[2021-04-16] MEDS ORDERED: LORazepam 2MG/ML-1ML VIAL IV ONE ×2 (01:45→05:30)
[2021-04-16] MEDS: D5W/SOD CHL 0.45% 1,000 ML IV SCH ×2 (04:00→21:13)
[2021-04-16] MEDS ORDERED: MIDAZOLAM HCL 5 MG/ML-1ML VIAL ONE (07:42)
[2021-04-16] MEDS ORDERED: MIDAZOLAM DRIP 50 mg/50mL 50 ML IV ONE (07:44)
[2021-04-16] MEDS ORDERED: MIDAZOLAM HCL 5 MG/ML-1ML VIAL IV ONE (07:45)
[2021-04-16] MEDS ORDERED: fentaNYL Drip 2500mCg/250mlNS 250 ML IV ONE (07:51)
[2021-04-16] MEDS: MIDAZOLAM DRIP 50 mg/50mL 50 ML IV SCH ×5 (07:55→21:09)
[2021-04-16] MEDS: fentaNYL Drip 2500mCg/250mlNS 250 ML IV SCH ×2 (08:00→22:17)
[2021-04-16] MEDS: CHOLECALCIFEROL (VITD3) 2,000 UNIT CAP/TAB PO SCH (10:58)
[2021-04-16] MEDS: BUDESONIDE (INHALATION) 180 MCG IH IN SCH (10:58)
[2021-04-16] MEDS: ENOXAPARIN SOD 40 MG/0.4 ML SYRINGE SC SCH (10:58)
[2021-04-16] MEDS: ASCORBIC ACID 500 MG TAB PO SCH (10:58)
[2021-04-16] MEDS: DexAMETHasone SOD PHOS 10MG/1ML VIAL INJ IV SCH (10:58)
[2021-04-16] MEDS: ZINC SULFATE 220mg CAP or TAB PO SCH (10:58)
[2021-04-16] MEDS: REMDESIVIR 100mg 100 MG in SODIUM CHL 0.9% 230 ML IV SCH (16:03)
[2021-04-16] MEDS: dilTIAZem 125mg/125ml BAG KIT 125 ML IV SCH (17:45)
[2021-04-16] MEDS: hydrALAZINE HCL 20 MG/ML VL IV PRN (18:01)
[2021-04-16] MEDS: BUDESONIDE (INHALATION) 0.5 MG/2 ML NEB NEB SCH (22:35)
[2021-04-16] MEDS: ALBUTEROL SULF 2.5 MG/0.5ML(0.5%) NEB SOLN NEB SCH (22:35)
[2021-04-17] VITALS (11 sets, daily range): BP systolic 136–158; BP diastolic 79–102
[2021-04-17] MEDS: MIDAZOLAM DRIP 50 mg/50mL 50 ML IV SCH ×7 (00:29→21:06)
[2021-04-17] MEDS: ACCU-CHEK COMFORT CURVE STRIP VI SCH ×4 (06:00→17:42)
[2021-04-17] MEDS: InsuLIN REG 1unit/0.01ml Soln (100units/ml) SC SCH ×4 (06:00→17:33)
[2021-04-17] MEDS: BUDESONIDE (INHALATION) 0.5 MG/2 ML NEB NEB SCH ×2 (06:54→22:27)
[2021-04-17] MEDS: ALBUTEROL SULF 2.5 MG/0.5ML(0.5%) NEB SOLN NEB SCH ×3 (06:54→22:26)
[2021-04-17] MEDS: DOXYCYCLINE 100MG/250ML 250 ML IV SCH ×2 (10:47→22:06)
[2021-04-17] MEDS: DexAMETHasone SOD PHOS 10MG/1ML VIAL INJ IV SCH (10:54)
[2021-04-17] MEDS: hydrALAZINE HCL 20 MG/ML VL IV PRN (10:55)
[2021-04-17] MEDS: ENOXAPARIN SOD 40 MG/0.4 ML SYRINGE SC SCH (10:55)
[2021-04-17] MEDS: ZINC SULFATE 220mg CAP or TAB PO SCH (10:55)
[2021-04-17] MEDS: CHOLECALCIFEROL (VITD3) 2,000 UNIT CAP/TAB PO SCH (10:56)
[2021-04-17] MEDS: ASCORBIC ACID 500 MG TAB PO SCH (10:56)
[2021-04-17] MEDS ORDERED: FUROSEMIDE 40 MG/4 ML VIAL IV ONE (11:45)
[2021-04-17] MEDS: D5W/SOD CHL 0.45% 1,000 ML IV SCH ×3 (13:23→16:03)
[2021-04-17] MEDS: REMDESIVIR 100mg 100 MG in SODIUM CHL 0.9% 230 ML IV SCH (15:09)
[2021-04-17] MEDS: dilTIAZem 125mg/125ml BAG KIT 125 ML IV SCH (17:45)
[2021-04-18] VITALS (63 sets, daily range): BP systolic 107–165; BP diastolic 69–110
[2021-04-18] MEDS: ACCU-CHEK COMFORT CURVE STRIP VI SCH ×4 (00:08→18:00)
[2021-04-18] MEDS: InsuLIN REG 1unit/0.01ml Soln (100units/ml) SC SCH ×4 (00:15→17:00)
[2021-04-18] MEDS: MIDAZOLAM DRIP 50 mg/50mL 50 ML IV SCH ×8 (00:44→20:57)
[2021-04-18] MEDS: fentaNYL Drip 2500mCg/250mlNS 250 ML IV SCH ×2 (04:10→10:00)
[2021-04-18] MEDS: BUDESONIDE (INHALATION) 0.5 MG/2 ML NEB NEB SCH ×2 (07:45→18:26)
[2021-04-18] MEDS: ALBUTEROL SULF 2.5 MG/0.5ML(0.5%) NEB SOLN NEB SCH ×3 (07:45→18:25)
[2021-04-18] MEDS: DOXYCYCLINE 100MG/250ML 250 ML IV SCH ×2 (10:04→21:41)
[2021-04-18 10:52] LABS: Potassium 4.1 mmol/L (3.5-5.1)
[2021-04-18 10:54] LABS: INR 1.27 (0.9-1.15)
[2021-04-18 10:56] LABS: Basophils # (auto) 0 10 ^3/uL (0-0.2); Basophils % (auto) 1.1 % (0.0-2.0); Eosinophils # (auto) 0 10 ^3/uL (0-0.8); Eosinophils % (auto) 0.1 % (0.0-7.0); Hematocrit 48.6 % (36.0-46.0); Hemoglobin 15.7 g/dL (12.2-16.2); Lymphocytes # (auto) 0.1 10 ^3/uL (0.4-5.4); Mean Corpuscular Hemoglobin 30.5 pg (28.0-32.0); Mean Corpuscular Hgb Conc. 32.4 g/dL (32.0-36.0); Mean Corpuscular Volume 94.1 fL (80.0-100.0); Monocytes # (auto) 0.2 10 ^3/uL (0-1.3); Monocytes % (auto) 8.4 % (0.0-12.0); Neutrophils # (auto) 2.1 10 ^3/uL (1.6-8.6); Neutrophils % (auto) 84.4 % (37.0-80.0); Nucleated Red Blood Cells % 0.5 %; Red Blood Cells 5.17 10^6/uL (4.0-5.20); White Blood Cell 2.5 10^3/uL (4.4-10.8)
[2021-04-18 10:57] LABS: Red Cell Distribution Width 21.6 % (11.8-14.3)
[2021-04-18 11:02] LABS: Albumin 2.4 g/dL (3.4-5.0); BUN/Creatinine Ratio 32.7; Calcium 8.3 mg/dL (8.5-10.1); Total Protein 6.5 g/dL (6.4-8.2)
[2021-04-18] MEDS: DexAMETHasone SOD PHOS 10MG/1ML VIAL INJ IV SCH (11:18)
[2021-04-18] MEDS: FUROSEMIDE 40 MG/4 ML VIAL IV SCH (11:19)
[2021-04-18] MEDS: ENOXAPARIN SOD 40 MG/0.4 ML SYRINGE SC SCH (11:19)
[2021-04-18] MEDS: dilTIAZem 125mg/125ml BAG KIT 125 ML IV SCH (11:19)
[2021-04-18] MEDS: ZINC SULFATE 220mg CAP or TAB PO SCH (11:19)
[2021-04-18] MEDS: ASCORBIC ACID 500 MG TAB PO SCH (11:19)
[2021-04-18] MEDS: CHOLECALCIFEROL (VITD3) 2,000 UNIT CAP/TAB PO SCH (11:19)
[2021-04-18] MEDS: REMDESIVIR 100mg 100 MG in SODIUM CHL 0.9% 230 ML IV SCH (18:37)
[2021-04-19] VITALS (92 sets, daily range): BP systolic 119–164; BP diastolic 79–106
[2021-04-19] MEDS: InsuLIN REG 1unit/0.01ml Soln (100units/ml) SC SCH ×5 (00:16→23:59)
[2021-04-19] MEDS: ACCU-CHEK COMFORT CURVE STRIP VI SCH ×4 (00:18→18:56)
[2021-04-19] MEDS: MIDAZOLAM DRIP 50 mg/50mL 50 ML IV SCH ×7 (02:00→22:29)
[2021-04-19 04:00] LABS: Basophils # (auto) 0 10 ^3/uL (0-0.2); Eosinophils # (auto) 0 10 ^3/uL (0-0.8); Lymphocytes # (auto) 0.1 10 ^3/uL (0.4-5.4); Monocytes # (auto) 0.2 10 ^3/uL (0-1.3); Nucleated Red Blood Cells % 0.3 %; White Blood Cell 2.3 10^3/uL (4.4-10.8)
[2021-04-19 04:03] LABS: Basophils % (auto) 0.1 % (0.0-2.0); Hemoglobin 14.4 g/dL (12.2-16.2); Lymphocytes % (auto) 6.2 % (10.0-50.0); Mean Corpuscular Hemoglobin 30.3 pg (28.0-32.0); Mean Corpuscular Hgb Conc. 32.7 g/dL (32.0-36.0); Mean Corpuscular Volume 92.8 fL (80.0-100.0); Monocytes % (auto) 9.4 % (0.0-12.0); Neutrophils # (auto) 1.9 10 ^3/uL (1.6-8.6); Neutrophils % (auto) 84.3 % (37.0-80.0); Red Blood Cells 4.74 10^6/uL (4.0-5.20)
[2021-04-19 04:25] LABS: BUN/Creatinine Ratio 42.6; Calcium 8.2 mg/dL (8.5-10.1); Potassium 3.2 mmol/L (3.5-5.1)
[2021-04-19 04:28] LABS: Bilirubin, Total 0.8 mg/dL (0.2-1.0); Total Protein 5.9 g/dL (6.4-8.2)
[2021-04-19] MEDS: fentaNYL Drip 2500mCg/250mlNS 250 ML IV SCH ×2 (04:58→18:49)
[2021-04-19 05:13] LABS: Red Cell Distribution Width 21.8 % (11.8-14.3)
[2021-04-19] MEDS: BUDESONIDE (INHALATION) 0.5 MG/2 ML NEB NEB SCH ×2 (06:41→22:15)
[2021-04-19] MEDS: ALBUTEROL SULF 2.5 MG/0.5ML(0.5%) NEB SOLN NEB SCH ×3 (06:41→22:15)
[2021-04-19] MEDS: ZINC SULFATE 220mg CAP or TAB PO SCH (11:28)
[2021-04-19] MEDS: DexAMETHasone SOD PHOS 10MG/1ML VIAL INJ IV SCH (11:28)
[2021-04-19] MEDS: ASCORBIC ACID 500 MG TAB PO SCH (11:29)
[2021-04-19] MEDS: CHOLECALCIFEROL (VITD3) 2,000 UNIT CAP/TAB PO SCH (11:30)
[2021-04-19] MEDS: FUROSEMIDE 40 MG/4 ML VIAL IV SCH (11:31)
[2021-04-19] MEDS: dilTIAZem 125mg/125ml BAG KIT 125 ML IV SCH (17:45)
[2021-04-19] MEDS: D5W/SOD CHL 0.45% 1,000 ML IV SCH ×2 (18:45→18:58)
[2021-04-20] VITALS (99 sets, daily range): BP systolic 103–161; BP diastolic 68–106
[2021-04-20] MEDS: MIDAZOLAM DRIP 50 mg/50mL 50 ML IV SCH ×7 (01:49→21:49)
[2021-04-20 02:16] LABS: Basophils # (auto) 0 10 ^3/uL (0-0.2); Basophils % (auto) 0.1 % (0.0-2.0); Eosinophils # (auto) 0 10 ^3/uL (0-0.8); Hematocrit 44.5 % (36.0-46.0); Lymphocytes # (auto) 0.1 10 ^3/uL (0.4-5.4); Mean Corpuscular Hgb Conc. 32.7 g/dL (32.0-36.0); Monocytes # (auto) 0.3 10 ^3/uL (0-1.3); Neutrophils # (auto) 3.7 10 ^3/uL (1.6-8.6); White Blood Cell 4.1 10^3/uL (4.4-10.8)
[2021-04-20 02:18] LABS: Hemoglobin 14.6 g/dL (12.2-16.2); Mean Corpuscular Hemoglobin 30.7 pg (28.0-32.0); Mean Corpuscular Volume 93.9 fL (80.0-100.0); Monocytes % (auto) 7.3 % (0.0-12.0); Neutrophils % (auto) 89.6 % (37.0-80.0); Nucleated Red Blood Cells % 0.1 %; Red Blood Cells 4.74 10^6/uL (4.0-5.20)
[2021-04-20 02:22] LABS: Red Cell Distribution Width 21.3 % (11.8-14.3)
[2021-04-20 02:38] LABS: BUN/Creatinine Ratio 44.7; Calcium 8.2 mg/dL (8.5-10.1); Potassium 3.3 mmol/L (3.5-5.1)
[2021-04-20 02:41] LABS: Bilirubin, Total 0.9 mg/dL (0.2-1.0); Total Protein 6.1 g/dL (6.4-8.2)
[2021-04-20] MEDS: ACCU-CHEK COMFORT CURVE STRIP VI SCH ×5 (05:40→23:45)
[2021-04-20] MEDS: InsuLIN REG 1unit/0.01ml Soln (100units/ml) SC SCH ×4 (05:41→23:47)
[2021-04-20] MEDS: ALBUTEROL SULF 2.5 MG/0.5ML(0.5%) NEB SOLN NEB SCH ×3 (06:48→22:16)
[2021-04-20] MEDS: BUDESONIDE (INHALATION) 0.5 MG/2 ML NEB NEB SCH ×2 (06:48→22:16)
[2021-04-20] MEDS: DexAMETHasone SOD PHOS 10MG/1ML VIAL INJ IV SCH (08:27)
[2021-04-20] MEDS: dilTIAZem 125mg/125ml BAG KIT 125 ML IV SCH (08:28)
[2021-04-20] MEDS: CHOLECALCIFEROL (VITD3) 2,000 UNIT CAP/TAB PO SCH (08:28)
[2021-04-20] MEDS: ASCORBIC ACID 500 MG TAB PO SCH (08:28)
[2021-04-20] MEDS: ZINC SULFATE 220mg CAP or TAB PO SCH (08:28)
[2021-04-20] MEDS: FUROSEMIDE 40 MG/4 ML VIAL IV SCH (08:28)
[2021-04-20] MEDS: fentaNYL Drip 2500mCg/250mlNS 250 ML IV SCH ×2 (08:28→16:50)
[2021-04-20] MEDS: Glucerna 1.2 Cal 1Liter BOTTLE GT SCH (08:29)
[2021-04-20] MEDS: D5W/SOD CHL 0.45% 1,000 ML IV SCH ×2 (08:30→23:46)
[2021-04-20] MEDS ORDERED: PROPOFOL 100 ML IV ONE (11:19)
[2021-04-20] MEDS: PROPOFOL 100 ML IV SCH ×2 (11:42→14:28)
[2021-04-20] MEDS: POTASSIUM CHL 20MEQ/100ML 100 ML IV SCH ×2 (12:55→16:02)
[2021-04-21] VITALS (97 sets, daily range): BP systolic 76–151; BP diastolic 45–94
[2021-04-21] MEDS: MIDAZOLAM DRIP 50 mg/50mL 50 ML IV SCH ×7 (01:09→21:09)
[2021-04-21 02:36] LABS: Basophils # (auto) 0 10 ^3/uL (0-0.2); Basophils % (auto) 0.1 % (0.0-2.0); Calcium 8.3 mg/dL (8.5-10.1); Eosinophils # (auto) 0 10 ^3/uL (0-0.8); Hemoglobin 14.2 g/dL (12.2-16.2); Lymphocytes # (auto) 0.2 10 ^3/uL (0.4-5.4); Lymphocytes % (auto) 4.3 % (10.0-50.0); Monocytes # (auto) 0.4 10 ^3/uL (0-1.3); Neutrophils # (auto) 3.9 10 ^3/uL (1.6-8.6); Potassium 3.7 mmol/L (3.5-5.1)
[2021-04-21 02:38] LABS: BUN/Creatinine Ratio 51.2; Hematocrit 43.2 % (36.0-46.0); Mean Corpuscular Hemoglobin 30.8 pg (28.0-32.0); Mean Corpuscular Hgb Conc. 32.9 g/dL (32.0-36.0); Mean Corpuscular Volume 93.5 fL (80.0-100.0); Monocytes % (auto) 8.2 % (0.0-12.0); Neutrophils % (auto) 87.4 % (37.0-80.0); Nucleated Red Blood Cells % 0.2 %; Red Blood Cells 4.62 10^6/uL (4.0-5.20); White Blood Cell 4.4 10^3/uL (4.4-10.8)
[2021-04-21 02:41] LABS: Bilirubin, Total 0.9 mg/dL (0.2-1.0); Total Protein 5.8 g/dL (6.4-8.2)
[2021-04-21 02:43] LABS: Red Cell Distribution Width 22.1 % (11.8-14.3)
[2021-04-21] MEDS: ACCU-CHEK COMFORT CURVE STRIP VI SCH ×3 (05:19→16:32)
[2021-04-21] MEDS: InsuLIN REG 1unit/0.01ml Soln (100units/ml) SC SCH ×3 (05:20→17:24)
[2021-04-21] MEDS: ALBUTEROL SULF 2.5 MG/0.5ML(0.5%) NEB SOLN NEB SCH ×3 (06:26→22:30)
[2021-04-21] MEDS: BUDESONIDE (INHALATION) 0.5 MG/2 ML NEB NEB SCH ×2 (06:27→22:30)
[2021-04-21] MEDS: DexAMETHasone SOD PHOS 10MG/1ML VIAL INJ IV SCH (09:46)
[2021-04-21] MEDS: ZINC SULFATE 220mg CAP or TAB PO SCH (09:47)
[2021-04-21] MEDS: FUROSEMIDE 40 MG/4 ML VIAL IV SCH (09:47)
[2021-04-21] MEDS: ASCORBIC ACID 500 MG TAB PO SCH (09:48)
[2021-04-21] MEDS: CHOLECALCIFEROL (VITD3) 2,000 UNIT CAP/TAB PO SCH (09:48)
[2021-04-21] MEDS ORDERED: POTASSIUM EFFERVESENT TAB 25 MEQ GT SCH (10:00)
[2021-04-21] MEDS: dilTIAZem 125mg/125ml BAG KIT 125 ML IV SCH (14:39)
[2021-04-21] MEDS ORDERED: SODIUM CHLORIDE 0.9% 500 ML IV ONE (15:30)
[2021-04-21] MEDS: D5W/SOD CHL 0.45% 1,000 ML IV SCH (16:23)
[2021-04-21] MEDS: Glucerna 1.2 Cal 1Liter BOTTLE GT SCH (16:23)
[2021-04-21] MEDS: PROPOFOL 100 ML IV SCH ×2 (16:24→20:00)
[2021-04-21] MEDS: fentaNYL Drip 2500mCg/250mlNS 250 ML IV SCH (16:30)
[2021-04-21] MEDS ORDERED: NOREPINEPHRINE 8 MG/250ML KIT 250 ML IV ONE (17:51)
[2021-04-21] MEDS: NOREPINEPHRINE 8 MG/250ML KIT 250 ML IV SCH (18:00)
[2021-04-22] VITALS (103 sets, daily range): BP systolic 75–155; BP diastolic 45–97
[2021-04-22] MEDS: InsuLIN REG 1unit/0.01ml Soln (100units/ml) SC SCH ×4 (00:32→18:18)
[2021-04-22] MEDS: MIDAZOLAM DRIP 50 mg/50mL 50 ML IV SCH ×7 (01:00→17:10)
[2021-04-22] MEDS: fentaNYL Drip 2500mCg/250mlNS 250 ML IV SCH (04:19)
[2021-04-22 04:32] LABS: BUN/Creatinine Ratio 61.7; Calcium 8.4 mg/dL (8.5-10.1); Potassium 4.2 mmol/L (3.5-5.1)
[2021-04-22 04:34] LABS: Basophils # (auto) 0 10 ^3/uL (0-0.2); Basophils % (auto) 0.1 % (0.0-2.0); Bilirubin, Total 0.8 mg/dL (0.2-1.0); Eosinophils # (auto) 0 10 ^3/uL (0-0.8); Hemoglobin 14.5 g/dL (12.2-16.2); Lymphocytes # (auto) 0.3 10 ^3/uL (0.4-5.4); Monocytes # (auto) 0.6 10 ^3/uL (0-1.3); Total Protein 6.1 g/dL (6.4-8.2)
[2021-04-22 04:37] LABS: Hematocrit 44.3 % (36.0-46.0); Lymphocytes % (auto) 3.6 % (10.0-50.0); Mean Corpuscular Hemoglobin 30.9 pg (28.0-32.0); Mean Corpuscular Hgb Conc. 32.7 g/dL (32.0-36.0); Mean Corpuscular Volume 94.5 fL (80.0-100.0); Monocytes % (auto) 7.3 % (0.0-12.0); Neutrophils # (auto) 6.9 10 ^3/uL (1.6-8.6); Nucleated Red Blood Cells % 0.1 %; Red Blood Cells 4.69 10^6/uL (4.0-5.20); White Blood Cell 7.8 10^3/uL (4.4-10.8)
[2021-04-22 04:46] LABS: Red Cell Distribution Width 21.7 % (11.8-14.3)
[2021-04-22] MEDS: ACCU-CHEK COMFORT CURVE STRIP VI SCH ×4 (06:23→18:18)
[2021-04-22] MEDS: ALBUTEROL SULF 2.5 MG/0.5ML(0.5%) NEB SOLN NEB SCH ×3 (06:44→22:09)
[2021-04-22] MEDS: BUDESONIDE (INHALATION) 0.5 MG/2 ML NEB NEB SCH ×2 (06:44→22:09)
[2021-04-22] MEDS: D5W/SOD CHL 0.45% 1,000 ML IV SCH (08:42)
[2021-04-22] MEDS: ZINC SULFATE 220mg CAP or TAB PO SCH (09:40)
[2021-04-22] MEDS: ASCORBIC ACID 500 MG TAB PO SCH (09:40)
[2021-04-22] MEDS: DexAMETHasone SOD PHOS 10MG/1ML VIAL INJ IV SCH (09:40)
[2021-04-22] MEDS: FUROSEMIDE 20 MG/2 ML VIAL IV SCH (09:40)
[2021-04-22] MEDS: CHOLECALCIFEROL (VITD3) 2,000 UNIT CAP/TAB PO SCH (09:40)
[2021-04-22] MEDS: dilTIAZem 125mg/125ml BAG KIT 125 ML IV SCH (12:56)
[2021-04-22] MEDS: NOREPINEPHRINE 8 MG/250ML KIT 250 ML IV SCH (15:00)
[2021-04-22] MEDS: PROPOFOL 100 ML IV SCH (23:30)
[2021-04-23] VITALS (103 sets, daily range): BP systolic 82–163; BP diastolic 53–108
[2021-04-23] MEDS: ACCU-CHEK COMFORT CURVE STRIP VI SCH ×4 (00:36→18:10)
[2021-04-23] MEDS: InsuLIN REG 1unit/0.01ml Soln (100units/ml) SC SCH ×4 (00:37→18:12)
[2021-04-23] MEDS: MIDAZOLAM DRIP 50 mg/50mL 50 ML IV SCH ×6 (00:42→19:00)
[2021-04-23] MEDS: PROPOFOL 100 ML IV SCH ×7 (01:00→22:09)
[2021-04-23] MEDS: D5W/SOD CHL 0.45% 1,000 ML IV SCH ×2 (04:49→20:28)
[2021-04-23] MEDS: fentaNYL Drip 2500mCg/250mlNS 250 ML IV SCH ×2 (04:50→13:44)
[2021-04-23] MEDS: Glucerna 1.2 Cal 1Liter BOTTLE GT SCH (04:51)
[2021-04-23] MEDS: BUDESONIDE (INHALATION) 0.5 MG/2 ML NEB NEB SCH ×2 (06:27→23:22)
[2021-04-23] MEDS: ALBUTEROL SULF 2.5 MG/0.5ML(0.5%) NEB SOLN NEB SCH ×3 (06:27→23:22)
[2021-04-23 08:48] LABS: Basophils # (auto) 0 10 ^3/uL (0-0.2); Basophils % (auto) 0.1 % (0.0-2.0); Eosinophils # (auto) 0 10 ^3/uL (0-0.8); Eosinophils % (auto) 0.1 % (0.0-7.0); Hematocrit 47.9 % (36.0-46.0); Hemoglobin 15.2 g/dL (12.2-16.2); Lymphocytes # (auto) 0.4 10 ^3/uL (0.4-5.4); Lymphocytes % (auto) 5.5 % (10.0-50.0); Mean Corpuscular Hemoglobin 30.2 pg (28.0-32.0); Mean Corpuscular Hgb Conc. 31.8 g/dL (32.0-36.0); Mean Corpuscular Volume 94.8 fL (80.0-100.0); Monocytes # (auto) 0.6 10 ^3/uL (0-1.3); Monocytes % (auto) 8.7 % (0.0-12.0); Neutrophils % (auto) 85.6 % (37.0-80.0); Nucleated Red Blood Cells % 0.1 %; Red Blood Cells 5.05 10^6/uL (4.0-5.20)
[2021-04-23 08:54] LABS: Red Cell Distribution Width 20.7 % (11.8-14.3)
[2021-04-23 09:01] LABS: BUN/Creatinine Ratio 68.3; Calcium 8.7 mg/dL (8.5-10.1); Potassium 4.2 mmol/L (3.5-5.1)
[2021-04-23] MEDS: DexAMETHasone SOD PHOS 10MG/1ML VIAL INJ IV SCH (10:32)
[2021-04-23] MEDS: CHOLECALCIFEROL (VITD3) 2,000 UNIT CAP/TAB PO SCH (10:33)
[2021-04-23] MEDS: FUROSEMIDE 20 MG/2 ML VIAL IV SCH (10:33)
[2021-04-23] MEDS: ZINC SULFATE 220mg CAP or TAB PO SCH (10:33)
[2021-04-23] MEDS: ASCORBIC ACID 500 MG TAB PO SCH (10:33)
[2021-04-23] MEDS: NOREPINEPHRINE 8 MG/250ML KIT 250 ML IV SCH (13:00)
[2021-04-23] MEDS: dilTIAZem 125mg/125ml BAG KIT 125 ML IV SCH (17:45)
[2021-04-24] VITALS (100 sets, daily range): BP systolic 12–150; BP diastolic 45–102
[2021-04-24] MEDS: MIDAZOLAM DRIP 50 mg/50mL 50 ML IV SCH ×6 (01:40→22:29)
[2021-04-24] MEDS: PROPOFOL 100 ML IV SCH ×5 (01:41→10:57)
[2021-04-24] MEDS: fentaNYL Drip 2500mCg/250mlNS 250 ML IV SCH ×2 (01:48→13:57)
[2021-04-24] MEDS: ACCU-CHEK COMFORT CURVE STRIP VI SCH ×5 (05:51→23:25)
[2021-04-24] MEDS: InsuLIN REG 1unit/0.01ml Soln (100units/ml) SC SCH ×5 (05:52→23:26)
[2021-04-24] MEDS: BUDESONIDE (INHALATION) 0.5 MG/2 ML NEB NEB SCH (06:10)
[2021-04-24] MEDS: ALBUTEROL SULF 2.5 MG/0.5ML(0.5%) NEB SOLN NEB SCH ×2 (06:10→14:45)
[2021-04-24] MEDS: ASCORBIC ACID 500 MG TAB PO SCH (09:49)
[2021-04-24] MEDS: CHOLECALCIFEROL (VITD3) 2,000 UNIT CAP/TAB PO SCH (09:49)
[2021-04-24] MEDS: ZINC SULFATE 220mg CAP or TAB PO SCH (09:49)
[2021-04-24] MEDS: DexAMETHasone SOD PHOS 10MG/1ML VIAL INJ IV SCH (09:49)
[2021-04-24] MEDS: FUROSEMIDE 20 MG/2 ML VIAL IV SCH (09:49)
[2021-04-24] MEDS: D5W/SOD CHL 0.45% 1,000 ML IV SCH (12:30)
[2021-04-24] MEDS: NOREPINEPHRINE 8 MG/250ML KIT 250 ML IV SCH (15:30)
[2021-04-24] MEDS ORDERED: HYDROCORTISONE SOD SUCC 100 MG/2ML INJ VIAL IV SCH (17:15)
[2021-04-24 17:46] LABS: Albumin 2.2 g/dL (3.4-5.0); BUN/Creatinine Ratio 66.7; Calcium 8.4 mg/dL (8.5-10.1); Potassium 4.3 mmol/L (3.5-5.1)
[2021-04-24 17:49] LABS: Bilirubin, Total 0.7 mg/dL (0.2-1.0)
[2021-04-24 17:54] LABS: Basophils # (auto) 0 10 ^3/uL (0-0.2); Basophils % (auto) 0.1 % (0.0-2.0); Eosinophils # (auto) 0 10 ^3/uL (0-0.8); Hemoglobin 14.6 g/dL (12.2-16.2); Lymphocytes # (auto) 0.2 10 ^3/uL (0.4-5.4); Nucleated Red Blood Cells % 0.1 %
[2021-04-24 17:55] LABS: Hematocrit 44.8 % (36.0-46.0); Lymphocytes % (auto) 3.7 % (10.0-50.0); Mean Corpuscular Hemoglobin 30.5 pg (28.0-32.0); Mean Corpuscular Hgb Conc. 32.5 g/dL (32.0-36.0); Mean Corpuscular Volume 93.8 fL (80.0-100.0); Monocytes # (auto) 0.3 10 ^3/uL (0-1.3); Monocytes % (auto) 4.9 % (0.0-12.0); Neutrophils % (auto) 91.3 % (37.0-80.0); Red Blood Cells 4.78 10^6/uL (4.0-5.20); White Blood Cell 6.6 10^3/uL (4.4-10.8)
[2021-04-24 18:01] LABS: Red Cell Distribution Width 20.4 % (11.8-14.3)
[2021-04-25] VITALS (105 sets, daily range): BP systolic 78–154; BP diastolic 42–94
[2021-04-25] MEDS: ALBUTEROL SULF 2.5 MG/0.5ML(0.5%) NEB SOLN NEB SCH ×3 (00:02→21:53)
[2021-04-25] MEDS: BUDESONIDE (INHALATION) 0.5 MG/2 ML NEB NEB SCH ×3 (00:02→21:52)
[2021-04-25] MEDS: MIDAZOLAM DRIP 50 mg/50mL 50 ML IV SCH ×7 (03:28→21:49)
[2021-04-25] MEDS: fentaNYL Drip 2500mCg/250mlNS 250 ML IV SCH ×2 (03:30→11:10)
[2021-04-25] MEDS: D5W/SOD CHL 0.45% 1,000 ML IV SCH (04:40)
[2021-04-25 05:26] LABS: Basophils # (auto) 0 10 ^3/uL (0-0.2); Eosinophils # (auto) 0 10 ^3/uL (0-0.8); Hemoglobin 13.6 g/dL (12.2-16.2); Lymphocytes # (auto) 0.3 10 ^3/uL (0.4-5.4); Lymphocytes % (auto) 5.2 % (10.0-50.0); Neutrophils # (auto) 4.8 10 ^3/uL (1.6-8.6); Nucleated Red Blood Cells % 0.1 %; White Blood Cell 5.7 10^3/uL (4.4-10.8)
[2021-04-25 05:28] LABS: Basophils % (auto) 0.2 % (0.0-2.0); Eosinophils % (auto) 0.2 % (0.0-7.0); Hematocrit 41.6 % (36.0-46.0); Mean Corpuscular Hemoglobin 30.4 pg (28.0-32.0); Mean Corpuscular Hgb Conc. 32.7 g/dL (32.0-36.0); Monocytes # (auto) 0.6 10 ^3/uL (0-1.3); Monocytes % (auto) 10.6 % (0.0-12.0); Neutrophils % (auto) 83.8 % (37.0-80.0); Red Blood Cells 4.47 10^6/uL (4.0-5.20); Red Cell Distribution Width 19.9 % (11.8-14.3)
[2021-04-25 05:46] LABS: Calcium 8.5 mg/dL (8.5-10.1); Potassium 4.1 mmol/L (3.5-5.1)
[2021-04-25 05:48] LABS: BUN/Creatinine Ratio 104.3
[2021-04-25] MEDS: ACCU-CHEK COMFORT CURVE STRIP VI SCH ×3 (06:00→17:48)
[2021-04-25] MEDS: InsuLIN REG 1unit/0.01ml Soln (100units/ml) SC SCH ×3 (06:40→17:51)
[2021-04-25] MEDS: ASCORBIC ACID 500 MG TAB PO SCH (10:09)
[2021-04-25] MEDS: DexAMETHasone SOD PHOS 10MG/1ML VIAL INJ IV SCH (10:09)
[2021-04-25] MEDS: ZINC SULFATE 220mg CAP or TAB PO SCH (10:09)
[2021-04-25] MEDS: CHOLECALCIFEROL (VITD3) 2,000 UNIT CAP/TAB PO SCH (10:09)
[2021-04-25] MEDS: PROPOFOL 100 ML IV SCH (12:16)
[2021-04-25] MEDS ORDERED: FUROSEMIDE 20 MG/2 ML VIAL IV ONE (12:45)
[2021-04-25] MEDS ORDERED: PANTOPRAZOLE 40 MG/10 ML VIAL INJ IV ONE (14:00)
[2021-04-25] MEDS: NOREPINEPHRINE 8 MG/250ML KIT 250 ML IV SCH (15:30)
[2021-04-26] VITALS (105 sets, daily range): BP systolic 88–169; BP diastolic 53–109
[2021-04-26] MEDS: ACCU-CHEK COMFORT CURVE STRIP VI SCH ×4 (00:15→17:30)
[2021-04-26] MEDS: MIDAZOLAM DRIP 50 mg/50mL 50 ML IV SCH ×3 (01:09→08:30)
[2021-04-26] MEDS: PROPOFOL 100 ML IV SCH ×6 (01:27→23:00)
[2021-04-26 05:12] LABS: Basophils # (auto) 0 10 ^3/uL (0-0.2); Basophils % (auto) 0.2 % (0.0-2.0); Eosinophils # (auto) 0.1 10 ^3/uL (0-0.8); Eosinophils % (auto) 2.1 % (0.0-7.0); Hematocrit 42.3 % (36.0-46.0); Lymphocytes # (auto) 0.2 10 ^3/uL (0.4-5.4); Lymphocytes % (auto) 3.7 % (10.0-50.0); Mean Corpuscular Hemoglobin 30.9 pg (28.0-32.0); Mean Corpuscular Hgb Conc. 33.1 g/dL (32.0-36.0); Mean Corpuscular Volume 93.3 fL (80.0-100.0); Monocytes # (auto) 0.6 10 ^3/uL (0-1.3); Monocytes % (auto) 9.1 % (0.0-12.0); Neutrophils # (auto) 5.7 10 ^3/uL (1.6-8.6); Neutrophils % (auto) 84.9 % (37.0-80.0); Nucleated Red Blood Cells % 0.1 %; Red Blood Cells 4.53 10^6/uL (4.0-5.20); White Blood Cell 6.7 10^3/uL (4.4-10.8)
[2021-04-26 05:38] LABS: BUN/Creatinine Ratio 96.4; Calcium 8.7 mg/dL (8.5-10.1)
[2021-04-26] MEDS: InsuLIN REG 1unit/0.01ml Soln (100units/ml) SC SCH ×4 (06:14→17:25)
[2021-04-26] MEDS: ALBUTEROL SULF 2.5 MG/0.5ML(0.5%) NEB SOLN NEB SCH ×3 (08:16→18:38)
[2021-04-26] MEDS: BUDESONIDE (INHALATION) 0.5 MG/2 ML NEB NEB SCH ×2 (08:16→18:38)
[2021-04-26] MEDS: PANTOPRAZOLE 40 MG/10 ML VIAL INJ IV SCH (09:39)
[2021-04-26] MEDS: ASCORBIC ACID 500 MG TAB PO SCH (09:40)
[2021-04-26] MEDS: ZINC SULFATE 220mg CAP or TAB PO SCH (09:40)
[2021-04-26] MEDS: CHOLECALCIFEROL (VITD3) 2,000 UNIT CAP/TAB PO SCH (09:40)
[2021-04-26] MEDS: DexAMETHasone SOD PHOS 10MG/1ML VIAL INJ IV SCH (09:41)
[2021-04-26] MEDS: FUROSEMIDE 20 MG/2 ML VIAL IV SCH (10:00)
[2021-04-26] MEDS ORDERED: acetaZOLAMIDE SODIUM 500 MG VL IV ONE (10:15)
[2021-04-26] MEDS: fentaNYL Drip 2500mCg/250mlNS 250 ML IV SCH ×2 (10:36→23:10)
[2021-04-26] MEDS: NOREPINEPHRINE 8 MG/250ML KIT 250 ML IV SCH (15:30)
[2021-04-26] MEDS: acetaZOLAMIDE SODIUM 500 MG VL IV SCH (22:00)
[2021-04-27] VITALS (104 sets, daily range): BP systolic 86–147; BP diastolic 52–95
[2021-04-27] MEDS: ACCU-CHEK COMFORT CURVE STRIP VI SCH ×4 (00:20→17:33)
[2021-04-27] MEDS: InsuLIN REG 1unit/0.01ml Soln (100units/ml) SC SCH ×4 (00:21→17:34)
[2021-04-27] MEDS: PROPOFOL 100 ML IV SCH ×5 (02:00→22:00)
[2021-04-27] MEDS: NOREPINEPHRINE 8 MG/250ML KIT 250 ML IV SCH (02:00)
[2021-04-27] MEDS: Glucerna 1.2 Cal 1Liter BOTTLE GT SCH ×2 (02:00→21:00)
[2021-04-27 04:51] LABS: Basophils # (auto) 0 10 ^3/uL (0-0.2); Basophils % (auto) 0.3 % (0.0-2.0); Eosinophils # (auto) 0 10 ^3/uL (0-0.8); Eosinophils % (auto) 0.3 % (0.0-7.0); Hematocrit 43.3 % (36.0-46.0); Lymphocytes # (auto) 0.3 10 ^3/uL (0.4-5.4); Lymphocytes % (auto) 6.7 % (10.0-50.0); Mean Corpuscular Hgb Conc. 32.4 g/dL (32.0-36.0); Mean Corpuscular Volume 92.7 fL (80.0-100.0); Monocytes # (auto) 0.5 10 ^3/uL (0-1.3); Monocytes % (auto) 8.9 % (0.0-12.0); Neutrophils # (auto) 4.2 10 ^3/uL (1.6-8.6); Neutrophils % (auto) 83.8 % (37.0-80.0); Nucleated Red Blood Cells % 0.2 %; Red Blood Cells 4.67 10^6/uL (4.0-5.20); White Blood Cell 5.1 10^3/uL (4.4-10.8)
[2021-04-27 05:08] LABS: Calcium 8.9 mg/dL (8.5-10.1); Potassium 3.2 mmol/L (3.5-5.1)
[2021-04-27 05:10] LABS: BUN/Creatinine Ratio 87.1
[2021-04-27] MEDS: ALBUTEROL SULF 2.5 MG/0.5ML(0.5%) NEB SOLN NEB SCH ×3 (06:17→22:07)
[2021-04-27] MEDS: BUDESONIDE (INHALATION) 0.5 MG/2 ML NEB NEB SCH ×2 (06:17→22:07)
[2021-04-27] MEDS: fentaNYL Drip 2500mCg/250mlNS 250 ML IV SCH ×3 (07:55→22:00)
[2021-04-27] MEDS: ZINC SULFATE 220mg CAP or TAB PO SCH (10:04)
[2021-04-27] MEDS: PANTOPRAZOLE 40 MG/10 ML VIAL INJ IV SCH (10:04)
[2021-04-27] MEDS: FUROSEMIDE 20 MG/2 ML VIAL IV SCH (10:05)
[2021-04-27] MEDS: CHOLECALCIFEROL (VITD3) 2,000 UNIT CAP/TAB PO SCH (10:05)
[2021-04-27] MEDS: ASCORBIC ACID 500 MG TAB PO SCH (10:05)
[2021-04-27] MEDS: DexAMETHasone SOD PHOS 10MG/1ML VIAL INJ IV SCH (10:06)
[2021-04-27] MEDS: ENOXAPARIN SOD 40 MG/0.4 ML SYRINGE SC SCH (10:07)
[2021-04-27] MEDS: acetaZOLAMIDE SODIUM 500 MG VL IV SCH ×2 (10:26→22:32)
[2021-04-27] MEDS: POTASSIUM CHL 20MEQ/100ML 100 ML IV SCH ×2 (12:30→15:51)
[2021-04-28] VITALS (99 sets, daily range): BP systolic 78–149; BP diastolic 50–102
[2021-04-28] MEDS: PROPOFOL 100 ML IV SCH ×6 (02:00→22:00)
[2021-04-28] MEDS: NOREPINEPHRINE 8 MG/250ML KIT 250 ML IV SCH (02:00)
[2021-04-28 05:55] LABS: Basophils # (auto) 0 10 ^3/uL (0-0.2); Basophils % (auto) 0.2 % (0.0-2.0); Eosinophils # (auto) 0 10 ^3/uL (0-0.8); Eosinophils % (auto) 0.3 % (0.0-7.0); Hematocrit 44.1 % (36.0-46.0); Hemoglobin 14.2 g/dL (12.2-16.2); Lymphocytes # (auto) 0.3 10 ^3/uL (0.4-5.4); Lymphocytes % (auto) 7.2 % (10.0-50.0); Mean Corpuscular Hemoglobin 30.1 pg (28.0-32.0); Mean Corpuscular Hgb Conc. 32.3 g/dL (32.0-36.0); Mean Corpuscular Volume 93.1 fL (80.0-100.0); Monocytes # (auto) 0.5 10 ^3/uL (0-1.3); Monocytes % (auto) 9.9 % (0.0-12.0); Neutrophils # (auto) 3.8 10 ^3/uL (1.6-8.6); Neutrophils % (auto) 82.4 % (37.0-80.0); Nucleated Red Blood Cells % 0.1 %; Red Blood Cells 4.74 10^6/uL (4.0-5.20); Red Cell Distribution Width 19.4 % (11.8-14.3); White Blood Cell 4.6 10^3/uL (4.4-10.8)
[2021-04-28] MEDS: InsuLIN REG 1unit/0.01ml Soln (100units/ml) SC SCH ×4 (06:00→18:30)
[2021-04-28] MEDS: ACCU-CHEK COMFORT CURVE STRIP VI SCH ×4 (06:11→18:30)
[2021-04-28] MEDS: BUDESONIDE (INHALATION) 0.5 MG/2 ML NEB NEB SCH ×2 (06:13→22:16)
[2021-04-28] MEDS: ALBUTEROL SULF 2.5 MG/0.5ML(0.5%) NEB SOLN NEB SCH ×3 (06:13→22:16)
[2021-04-28 06:31] LABS: Potassium 3.4 mmol/L (3.5-5.1)
[2021-04-28 06:45] LABS: BUN/Creatinine Ratio 94.1; Calcium 8.8 mg/dL (8.5-10.1)
[2021-04-28] MEDS: DexAMETHasone SOD PHOS 10MG/1ML VIAL INJ IV SCH (09:05)
[2021-04-28] MEDS: PANTOPRAZOLE 40 MG/10 ML VIAL INJ IV SCH (09:07)
[2021-04-28] MEDS: ZINC SULFATE 220mg CAP or TAB PO SCH (09:08)
[2021-04-28] MEDS: CHOLECALCIFEROL (VITD3) 2,000 UNIT CAP/TAB PO SCH (09:08)
[2021-04-28] MEDS: ASCORBIC ACID 500 MG TAB PO SCH (09:08)
[2021-04-28] MEDS: acetaZOLAMIDE SODIUM 500 MG VL IV SCH ×2 (09:09→23:23)
[2021-04-28] MEDS: ENOXAPARIN SOD 40 MG/0.4 ML SYRINGE SC SCH (09:11)
[2021-04-28] MEDS: FUROSEMIDE 20 MG/2 ML VIAL IV SCH (09:13)
[2021-04-28] MEDS ORDERED: POTASSIUM CHL 20MEQ/100ML 100 ML IV ONE (11:00)
[2021-04-28] MEDS: fentaNYL Drip 2500mCg/250mlNS 250 ML IV SCH (15:59)
[2021-04-28] MEDS: Glucerna 1.2 Cal 1Liter BOTTLE GT SCH ×2 (20:00→23:41)
[2021-04-29] VITALS (103 sets, daily range): BP systolic 76–144; BP diastolic 39–89
[2021-04-29] MEDS: PROPOFOL 100 ML IV SCH ×8 (01:00→22:15)
[2021-04-29] MEDS: ACCU-CHEK COMFORT CURVE STRIP VI SCH ×4 (01:01→18:03)
[2021-04-29] MEDS: InsuLIN REG 1unit/0.01ml Soln (100units/ml) SC SCH ×4 (01:09→18:03)
[2021-04-29] MEDS: NOREPINEPHRINE 8 MG/250ML KIT 250 ML IV SCH (02:00)
[2021-04-29] MEDS: fentaNYL Drip 2500mCg/250mlNS 250 ML IV SCH ×2 (04:00→17:36)
[2021-04-29 04:16] LABS: Basophils # (auto) 0 10 ^3/uL (0-0.2); Basophils % (auto) 0.5 % (0.0-2.0); Eosinophils # (auto) 0 10 ^3/uL (0-0.8); Eosinophils % (auto) 0.6 % (0.0-7.0); Hematocrit 44.6 % (36.0-46.0); Hemoglobin 14.2 g/dL (12.2-16.2); Lymphocytes # (auto) 0.4 10 ^3/uL (0.4-5.4); Lymphocytes % (auto) 7.1 % (10.0-50.0); Mean Corpuscular Hemoglobin 30.2 pg (28.0-32.0); Mean Corpuscular Volume 94.4 fL (80.0-100.0); Monocytes # (auto) 0.5 10 ^3/uL (0-1.3); Monocytes % (auto) 8.2 % (0.0-12.0); Neutrophils # (auto) 5.2 10 ^3/uL (1.6-8.6); Neutrophils % (auto) 83.6 % (37.0-80.0); Nucleated Red Blood Cells % 0.1 %; Red Blood Cells 4.72 10^6/uL (4.0-5.20); White Blood Cell 6.2 10^3/uL (4.4-10.8)
[2021-04-29 04:36] LABS: Potassium 3.5 mmol/L (3.5-5.1)
[2021-04-29] MEDS: ALBUTEROL SULF 2.5 MG/0.5ML(0.5%) NEB SOLN NEB SCH ×4 (06:21→22:22)
[2021-04-29] MEDS: BUDESONIDE (INHALATION) 0.5 MG/2 ML NEB NEB SCH ×2 (06:21→22:22)
[2021-04-29] MEDS: MIDAZOLAM DRIP 50 mg/50mL 50 ML IV SCH ×4 (08:00→15:49)
[2021-04-29] MEDS: acetaZOLAMIDE SODIUM 500 MG VL IV SCH ×2 (10:00→22:13)
[2021-04-29] MEDS: FUROSEMIDE 20 MG/2 ML VIAL IV SCH ×2 (10:00→15:41)
[2021-04-29] MEDS: DexAMETHasone SOD PHOS 10MG/1ML VIAL INJ IV SCH (10:11)
[2021-04-29] MEDS: ZINC SULFATE 220mg CAP or TAB PO SCH (10:12)
[2021-04-29] MEDS: PANTOPRAZOLE 40 MG/10 ML VIAL INJ IV SCH (10:12)
[2021-04-29] MEDS: ASCORBIC ACID 500 MG TAB PO SCH (10:13)
[2021-04-29] MEDS: ENOXAPARIN SOD 40 MG/0.4 ML SYRINGE SC SCH (10:13)
[2021-04-29] MEDS ORDERED: AMIODARONE 450mg/250ml AE 250 ML IV SCH (13:45)
[2021-04-29] MEDS: CHOLECALCIFEROL (VITD3) 2,000 UNIT CAP/TAB PO SCH (15:40)
[2021-04-29] MEDS: Glucerna 1.2 Cal 1Liter BOTTLE GT SCH (20:00)
[2021-04-29 20:28] LABS: BUN/Creatinine Ratio 68.4; Calcium 8.9 mg/dL (8.5-10.1); Potassium 3.7 mmol/L (3.5-5.1)
[2021-04-29] MEDS ORDERED: POTASSIUM CHL 20MEQ/100ML 100 ML IV ONE (21:45)
[2021-04-29] MEDS: AMIODARONE 450mg/250ml AE 250 ML IV SCH (22:02)
[2021-04-30] VITALS (103 sets, daily range): BP systolic 74–154; BP diastolic 39–92
[2021-04-30 04:53] LABS: Basophils # (auto) 0 10 ^3/uL (0-0.2); Basophils % (auto) 0.3 % (0.0-2.0); Eosinophils # (auto) 0 10 ^3/uL (0-0.8); Eosinophils % (auto) 0.4 % (0.0-7.0); Hematocrit 41.7 % (36.0-46.0); Hemoglobin 13.7 g/dL (12.2-16.2); Lymphocytes # (auto) 0.3 10 ^3/uL (0.4-5.4); Lymphocytes % (auto) 6.3 % (10.0-50.0); Mean Corpuscular Hemoglobin 30.9 pg (28.0-32.0); Mean Corpuscular Hgb Conc. 32.8 g/dL (32.0-36.0); Mean Corpuscular Volume 94.4 fL (80.0-100.0); Monocytes # (auto) 0.7 10 ^3/uL (0-1.3); Monocytes % (auto) 12.6 % (0.0-12.0); Neutrophils # (auto) 4.2 10 ^3/uL (1.6-8.6); Neutrophils % (auto) 80.4 % (37.0-80.0); Nucleated Red Blood Cells % 0.1 %; Red Blood Cells 4.42 10^6/uL (4.0-5.20); White Blood Cell 5.3 10^3/uL (4.4-10.8)
[2021-04-30] MEDS: PROPOFOL 100 ML IV SCH ×5 (05:01→22:30)
[2021-04-30 05:04] LABS: BUN/Creatinine Ratio 80.6; Calcium 8.8 mg/dL (8.5-10.1); Potassium 3.5 mmol/L (3.5-5.1)
[2021-04-30 05:06] LABS: INR 0.98 (0.9-1.15); Partial Thromboplastin Time 24.1 sec (23.6-33.0)
[2021-04-30 05:15] LABS: Albumin 2.2 g/dL (3.4-5.0); Bilirubin, Direct 0.4 mg/dL (0-0.2); Magnesium 2.1 mg/dL (1.6-2.6)
[2021-04-30 05:26] LABS: CRP High Sensitivity 14.4 mg/dL (< 0.3)
[2021-04-30 05:28] LABS: Bilirubin, Total 0.7 mg/dL (0.2-1.0); Total Protein 6.5 g/dL (6.4-8.2)
[2021-04-30] MEDS: BUDESONIDE (INHALATION) 0.5 MG/2 ML NEB NEB SCH ×2 (05:37→22:18)
[2021-04-30] MEDS: ALBUTEROL SULF 2.5 MG/0.5ML(0.5%) NEB SOLN NEB SCH ×3 (05:37→22:18)
[2021-04-30] MEDS: ACCU-CHEK COMFORT CURVE STRIP VI SCH ×4 (06:00→17:13)
[2021-04-30] MEDS: InsuLIN REG 1unit/0.01ml Soln (100units/ml) SC SCH ×4 (06:00→17:13)
[2021-04-30] MEDS: DexAMETHasone SOD PHOS 10MG/1ML VIAL INJ IV SCH (09:28)
[2021-04-30] MEDS: FUROSEMIDE 20 MG/2 ML VIAL IV SCH (09:29)
[2021-04-30] MEDS: PANTOPRAZOLE 40 MG/10 ML VIAL INJ IV SCH (09:29)
[2021-04-30] MEDS: ZINC SULFATE 220mg CAP or TAB PO SCH (09:29)
[2021-04-30] MEDS: CHOLECALCIFEROL (VITD3) 2,000 UNIT CAP/TAB PO SCH (09:30)
[2021-04-30] MEDS: ASCORBIC ACID 500 MG TAB PO SCH (09:30)
[2021-04-30] MEDS: ENOXAPARIN SOD 40 MG/0.4 ML SYRINGE SC SCH (09:30)
[2021-04-30] MEDS: acetaZOLAMIDE SODIUM 500 MG VL IV SCH ×2 (09:42→22:00)
[2021-04-30] MEDS: fentaNYL Drip 2500mCg/250mlNS 250 ML IV SCH (11:24)
[2021-04-30] MEDS: AMIODARONE 450mg/250ml AE 250 ML IV SCH (11:26)
[2021-04-30] MEDS: Glucerna 1.2 Cal 1Liter BOTTLE GT SCH (20:00)
[2021-05-01] VITALS (103 sets, daily range): BP systolic 83–131; BP diastolic 47–87
[2021-05-01] MEDS: InsuLIN REG 1unit/0.01ml Soln (100units/ml) SC SCH ×5 (00:21→23:25)
[2021-05-01] MEDS: ACCU-CHEK COMFORT CURVE STRIP VI SCH ×5 (00:21→23:25)
[2021-05-01] MEDS: AMIODARONE 450mg/250ml AE 250 ML IV SCH ×2 (01:45→16:45)
[2021-05-01] MEDS: PROPOFOL 100 ML IV SCH ×2 (02:15→20:54)
[2021-05-01] MEDS: fentaNYL Drip 2500mCg/250mlNS 250 ML IV SCH ×2 (03:22→17:55)
[2021-05-01 04:42] LABS: Basophils # (auto) 0 10 ^3/uL (0-0.2); Basophils % (auto) 0.1 % (0.0-2.0); Eosinophils # (auto) 0 10 ^3/uL (0-0.8); Eosinophils % (auto) 0.2 % (0.0-7.0); Hematocrit 39.2 % (36.0-46.0); Lymphocytes # (auto) 0.3 10 ^3/uL (0.4-5.4); Lymphocytes % (auto) 8.4 % (10.0-50.0); Mean Corpuscular Hemoglobin 31.2 pg (28.0-32.0); Mean Corpuscular Volume 94.4 fL (80.0-100.0); Monocytes # (auto) 0.4 10 ^3/uL (0-1.3); Monocytes % (auto) 11.7 % (0.0-12.0); Neutrophils # (auto) 2.9 10 ^3/uL (1.6-8.6); Neutrophils % (auto) 79.6 % (37.0-80.0); Nucleated Red Blood Cells % 0.1 %; Red Blood Cells 4.16 10^6/uL (4.0-5.20); Red Cell Distribution Width 17.8 % (11.8-14.3); White Blood Cell 3.6 10^3/uL (4.4-10.8)
[2021-05-01 04:50] LABS: Potassium 3.5 mmol/L (3.5-5.1)
[2021-05-01 05:02] LABS: Calcium 8.9 mg/dL (8.5-10.1)
[2021-05-01 05:10] LABS: CRP High Sensitivity 13.1 mg/dL (< 0.3)
[2021-05-01] MEDS: BUDESONIDE (INHALATION) 0.5 MG/2 ML NEB NEB SCH ×2 (05:45→18:49)
[2021-05-01] MEDS: ALBUTEROL SULF 2.5 MG/0.5ML(0.5%) NEB SOLN NEB SCH ×3 (05:45→18:49)
[2021-05-01] MEDS: MIDAZOLAM DRIP 50 mg/50mL 50 ML IV SCH ×7 (07:41→23:26)
[2021-05-01] MEDS: DexAMETHasone SOD PHOS 10MG/1ML VIAL INJ IV SCH (09:48)
[2021-05-01] MEDS: CHOLECALCIFEROL (VITD3) 2,000 UNIT CAP/TAB PO SCH (09:49)
[2021-05-01] MEDS: ASCORBIC ACID 500 MG TAB PO SCH (09:49)
[2021-05-01] MEDS: ENOXAPARIN SOD 40 MG/0.4 ML SYRINGE SC SCH (09:49)
[2021-05-01] MEDS: ZINC SULFATE 220mg CAP or TAB PO SCH (09:49)
[2021-05-01] MEDS: FUROSEMIDE 20 MG/2 ML VIAL IV SCH (09:49)
[2021-05-01] MEDS: PANTOPRAZOLE 40 MG/10 ML VIAL INJ IV SCH (09:49)
[2021-05-01] MEDS: acetaZOLAMIDE SODIUM 500 MG VL IV SCH ×2 (09:49→20:53)
[2021-05-01] MEDS: NOREPINEPHRINE 8 MG/250ML KIT 250 ML IV SCH (15:30)
[2021-05-02] VITALS (109 sets, daily range): BP systolic 83–135; BP diastolic 35–89
[2021-05-02 04:33] LABS: Basophils # (auto) 0 10 ^3/uL (0-0.2); Basophils % (auto) 0.4 % (0.0-2.0); Eosinophils # (auto) 0 10 ^3/uL (0-0.8); Eosinophils % (auto) 1.2 % (0.0-7.0); Hemoglobin 13.5 g/dL (12.2-16.2); Lymphocytes # (auto) 0.4 10 ^3/uL (0.4-5.4); Lymphocytes % (auto) 13.5 % (10.0-50.0); Mean Corpuscular Hemoglobin 30.4 pg (28.0-32.0); Mean Corpuscular Hgb Conc. 32.2 g/dL (32.0-36.0); Mean Corpuscular Volume 94.3 fL (80.0-100.0); Monocytes # (auto) 0.4 10 ^3/uL (0-1.3); Monocytes % (auto) 15.2 % (0.0-12.0); Neutrophils % (auto) 69.7 % (37.0-80.0); Nucleated Red Blood Cells % 0.2 %; Red Blood Cells 4.45 10^6/uL (4.0-5.20); Red Cell Distribution Width 17.8 % (11.8-14.3); White Blood Cell 2.9 10^3/uL (4.4-10.8)
[2021-05-02 04:55] LABS: Calcium 9.2 mg/dL (8.5-10.1); Potassium 3.5 mmol/L (3.5-5.1)
[2021-05-02 04:59] LABS: BUN/Creatinine Ratio 82.8
[2021-05-02] MEDS: InsuLIN REG 1unit/0.01ml Soln (100units/ml) SC SCH ×4 (05:02→23:22)
[2021-05-02] MEDS: ACCU-CHEK COMFORT CURVE STRIP VI SCH ×4 (05:03→23:23)
[2021-05-02] MEDS: MIDAZOLAM DRIP 50 mg/50mL 50 ML IV SCH ×7 (05:03→23:16)
[2021-05-02] MEDS: AMIODARONE 450mg/250ml AE 250 ML IV SCH ×2 (05:03→22:45)
[2021-05-02 05:07] LABS: CRP High Sensitivity 8.8 mg/dL (< 0.3)
[2021-05-02] MEDS: ALBUTEROL SULF 2.5 MG/0.5ML(0.5%) NEB SOLN NEB SCH ×3 (06:17→22:52)
[2021-05-02] MEDS: BUDESONIDE (INHALATION) 0.5 MG/2 ML NEB NEB SCH ×2 (06:18→22:52)
[2021-05-02] MEDS: DexAMETHasone SOD PHOS 10MG/1ML VIAL INJ IV SCH (09:44)
[2021-05-02] MEDS: acetaZOLAMIDE SODIUM 500 MG VL IV SCH ×2 (09:44→20:50)
[2021-05-02] MEDS: ZINC SULFATE 220mg CAP or TAB PO SCH (09:45)
[2021-05-02] MEDS: ENOXAPARIN SOD 40 MG/0.4 ML SYRINGE SC SCH (09:45)
[2021-05-02] MEDS: PANTOPRAZOLE 40 MG/10 ML VIAL INJ IV SCH (09:45)
[2021-05-02] MEDS: CHOLECALCIFEROL (VITD3) 2,000 UNIT CAP/TAB PO SCH (09:45)
[2021-05-02] MEDS: FUROSEMIDE 20 MG/2 ML VIAL IV SCH (09:45)
[2021-05-02] MEDS: ASCORBIC ACID 500 MG TAB PO SCH (09:45)
[2021-05-02] MEDS: fentaNYL Drip 2500mCg/250mlNS 250 ML IV SCH (15:30)
[2021-05-02] MEDS: NOREPINEPHRINE 8 MG/250ML KIT 250 ML IV SCH (15:30)
[2021-05-02] MEDS: PROPOFOL 100 ML IV SCH (20:50)
[2021-05-03] VITALS (103 sets, daily range): BP systolic 102–154; BP diastolic 65–107
[2021-05-03 04:53] LABS: Basophils # (auto) 0 10 ^3/uL (0-0.2); Basophils % (auto) 0.4 % (0.0-2.0); Eosinophils # (auto) 0 10 ^3/uL (0-0.8); Eosinophils % (auto) 0.9 % (0.0-7.0); Hematocrit 40.2 % (36.0-46.0); Hemoglobin 12.9 g/dL (12.2-16.2); Lymphocytes # (auto) 0.4 10 ^3/uL (0.4-5.4); Lymphocytes % (auto) 11.6 % (10.0-50.0); Mean Corpuscular Hemoglobin 30.2 pg (28.0-32.0); Mean Corpuscular Hgb Conc. 32.1 g/dL (32.0-36.0); Mean Corpuscular Volume 94.2 fL (80.0-100.0); Monocytes # (auto) 0.4 10 ^3/uL (0-1.3); Monocytes % (auto) 11.1 % (0.0-12.0); Neutrophils # (auto) 2.6 10 ^3/uL (1.6-8.6); Nucleated Red Blood Cells % 0.1 %; Red Blood Cells 4.27 10^6/uL (4.0-5.20); Red Cell Distribution Width 17.7 % (11.8-14.3); White Blood Cell 3.4 10^3/uL (4.4-10.8)
[2021-05-03 05:08] LABS: Calcium 9.1 mg/dL (8.5-10.1); Potassium 3.2 mmol/L (3.5-5.1)
[2021-05-03 05:18] LABS: BUN/Creatinine Ratio 136.8; CRP High Sensitivity 5.39 mg/dL (< 0.3)
[2021-05-03] MEDS: InsuLIN REG 1unit/0.01ml Soln (100units/ml) SC SCH ×4 (05:47→23:08)
[2021-05-03] MEDS: ACCU-CHEK COMFORT CURVE STRIP VI SCH ×4 (05:47→23:08)
[2021-05-03] MEDS: MIDAZOLAM DRIP 50 mg/50mL 50 ML IV SCH ×8 (05:48→22:07)
[2021-05-03] MEDS: ALBUTEROL SULF 2.5 MG/0.5ML(0.5%) NEB SOLN NEB SCH ×3 (07:27→22:06)
[2021-05-03] MEDS: BUDESONIDE (INHALATION) 0.5 MG/2 ML NEB NEB SCH ×2 (07:27→22:06)
[2021-05-03] MEDS: PROPOFOL 100 ML IV SCH (09:40)
[2021-05-03] MEDS: FUROSEMIDE 20 MG/2 ML VIAL IV SCH (09:57)
[2021-05-03] MEDS: CHOLECALCIFEROL (VITD3) 2,000 UNIT CAP/TAB PO SCH (09:57)
[2021-05-03] MEDS: PANTOPRAZOLE 40 MG/10 ML VIAL INJ IV SCH (09:57)
[2021-05-03] MEDS: ZINC SULFATE 220mg CAP or TAB PO SCH (09:57)
[2021-05-03] MEDS: ASCORBIC ACID 500 MG TAB PO SCH (09:57)
[2021-05-03] MEDS: acetaZOLAMIDE SODIUM 500 MG VL IV SCH ×2 (09:57→20:46)
[2021-05-03] MEDS: ENOXAPARIN SOD 40 MG/0.4 ML SYRINGE SC SCH (09:58)
[2021-05-03] MEDS ORDERED: AMIODARONE HCL 200 MG TAB PO ONE (12:15)
[2021-05-03] MEDS: POTASSIUM CHL 20MEQ/100ML 100 ML IV SCH ×3 (13:00→16:40)
[2021-05-03] MEDS: NOREPINEPHRINE 8 MG/250ML KIT 250 ML IV SCH (15:30)
[2021-05-03] MEDS: ACETAMINOPHEN 325 MG TAB PO PRN (18:13)
[2021-05-03] MEDS: DOCUSATE ORAL LIQUID 100 MG/10 ML UD GT SCH (20:46)
[2021-05-03] MEDS: AMIODARONE HCL 200 MG TAB PO SCH (21:07)
[2021-05-03] MEDS: APIXABAN 5 MG TAB PO SCH (21:08)
[2021-05-04] VITALS (97 sets, daily range): BP systolic 96–185; BP diastolic 65–126
[2021-05-04] MEDS: METOPROLOL TARTRATE 1MG/1ML-5ML VIAL IV PRN (03:20)
[2021-05-04] MEDS: ACETAMINOPHEN 325 MG TAB PO PRN (03:21)
[2021-05-04 04:24] LABS: Basophils # (auto) 0 10 ^3/uL (0-0.2); Basophils % (auto) 0.7 % (0.0-2.0); Eosinophils # (auto) 0.1 10 ^3/uL (0-0.8); Eosinophils % (auto) 2.4 % (0.0-7.0); Hematocrit 44.4 % (36.0-46.0); Hemoglobin 14.5 g/dL (12.2-16.2); Lymphocytes # (auto) 0.6 10 ^3/uL (0.4-5.4); Lymphocytes % (auto) 13.8 % (10.0-50.0); Mean Corpuscular Hemoglobin 30.6 pg (28.0-32.0); Mean Corpuscular Hgb Conc. 32.7 g/dL (32.0-36.0); Mean Corpuscular Volume 93.7 fL (80.0-100.0); Monocytes # (auto) 0.5 10 ^3/uL (0-1.3); Neutrophils # (auto) 3.1 10 ^3/uL (1.6-8.6); Neutrophils % (auto) 72.1 % (37.0-80.0); Nucleated Red Blood Cells % 0.1 %; Red Blood Cells 4.74 10^6/uL (4.0-5.20); Red Cell Distribution Width 16.9 % (11.8-14.3); White Blood Cell 4.2 10^3/uL (4.4-10.8)
[2021-05-04 04:34] LABS: BUN/Creatinine Ratio 74.2; Calcium 9.2 mg/dL (8.5-10.1); Potassium 3.2 mmol/L (3.5-5.1)
[2021-05-04 04:44] LABS: CRP High Sensitivity 6.95 mg/dL (< 0.3)
[2021-05-04] MEDS: InsuLIN REG 1unit/0.01ml Soln (100units/ml) SC SCH ×3 (05:09→18:00)
[2021-05-04] MEDS: ACCU-CHEK COMFORT CURVE STRIP VI SCH ×3 (05:10→18:07)
[2021-05-04] MEDS: hydrALAZINE HCL 20 MG/ML VL IV PRN (05:16)
[2021-05-04] MEDS ORDERED: METOPROLOL TARTRATE 1MG/1ML-5ML VIAL IV ONE (06:30)
[2021-05-04] MEDS: POTASSIUM CHL 20MEQ/100ML 100 ML IV SCH ×4 (06:49→08:48)
[2021-05-04] MEDS: ALBUTEROL SULF 2.5 MG/0.5ML(0.5%) NEB SOLN NEB SCH ×3 (07:26→22:37)
[2021-05-04] MEDS: BUDESONIDE (INHALATION) 0.5 MG/2 ML NEB NEB SCH ×2 (07:28→22:37)
[2021-05-04] MEDS ORDERED: DIGOXIN (250MCG/ML) 2 ML AMPULE IV ONE (08:45)
[2021-05-04] MEDS: MIDAZOLAM DRIP 50 mg/50mL 50 ML IV SCH ×5 (09:00→22:29)
[2021-05-04] MEDS: ASCORBIC ACID 500 MG TAB PO SCH (09:22)
[2021-05-04] MEDS: CHOLECALCIFEROL (VITD3) 2,000 UNIT CAP/TAB PO SCH (09:23)
[2021-05-04] MEDS: PANTOPRAZOLE 40 MG/10 ML VIAL INJ IV SCH (09:24)
[2021-05-04] MEDS: DOCUSATE ORAL LIQUID 100 MG/10 ML UD GT SCH (09:24)
[2021-05-04] MEDS: ZINC SULFATE 220mg CAP or TAB PO SCH (09:27)
[2021-05-04] MEDS: AMIODARONE HCL 200 MG TAB PO SCH ×2 (09:27→22:44)
[2021-05-04] MEDS: APIXABAN 5 MG TAB PO SCH ×2 (09:28→22:44)
[2021-05-04] MEDS: FUROSEMIDE 40 MG/4 ML VIAL IV SCH (10:00)
[2021-05-04] MEDS: METOPROLOL TARTRATE 25 MG TAB PO SCH ×2 (10:00→22:45)
[2021-05-04] MEDS: acetaZOLAMIDE SODIUM 500 MG VL IV SCH ×2 (10:00→22:46)
[2021-05-04] MEDS: fentaNYL Drip 2500mCg/250mlNS 250 ML IV SCH (11:15)
[2021-05-04] MEDS ORDERED: AMIODARONE HCL 200 MG TAB PO ONE (11:30)
[2021-05-04] MEDS: NOREPINEPHRINE 8 MG/250ML KIT 250 ML IV SCH (15:30)
[2021-05-04 16:09] LABS: Calcium 8.8 mg/dL (8.5-10.1); Magnesium 2.1 mg/dL (1.6-2.6); Potassium 3.4 mmol/L (3.5-5.1)
[2021-05-05] VITALS (100 sets, daily range): BP systolic 97–155; BP diastolic 65–100
[2021-05-05] MEDS: ACCU-CHEK COMFORT CURVE STRIP VI SCH ×4 (00:01→18:49)
[2021-05-05] MEDS: MIDAZOLAM DRIP 50 mg/50mL 50 ML IV SCH ×7 (01:49→21:49)
[2021-05-05] MEDS: InsuLIN REG 1unit/0.01ml Soln (100units/ml) SC SCH ×4 (05:27→18:00)
[2021-05-05 05:35] LABS: Basophils # (auto) 0 10 ^3/uL (0-0.2); Basophils % (auto) 0.5 % (0.0-2.0); Eosinophils # (auto) 0.1 10 ^3/uL (0-0.8); Eosinophils % (auto) 1.4 % (0.0-7.0); Hematocrit 43.6 % (36.0-46.0); Hemoglobin 14.1 g/dL (12.2-16.2); Lymphocytes # (auto) 0.4 10 ^3/uL (0.4-5.4); Lymphocytes % (auto) 7.7 % (10.0-50.0); Mean Corpuscular Hemoglobin 30.3 pg (28.0-32.0); Mean Corpuscular Hgb Conc. 32.3 g/dL (32.0-36.0); Mean Corpuscular Volume 93.7 fL (80.0-100.0); Monocytes # (auto) 0.4 10 ^3/uL (0-1.3); Monocytes % (auto) 7.2 % (0.0-12.0); Neutrophils # (auto) 4.1 10 ^3/uL (1.6-8.6); Neutrophils % (auto) 83.2 % (37.0-80.0); Red Blood Cells 4.65 10^6/uL (4.0-5.20); Red Cell Distribution Width 17.1 % (11.8-14.3); White Blood Cell 4.9 10^3/uL (4.4-10.8)
[2021-05-05 05:41] LABS: Calcium 8.9 mg/dL (8.5-10.1)
[2021-05-05 05:54] LABS: CRP High Sensitivity 11.7 mg/dL (< 0.3)
[2021-05-05] MEDS: BUDESONIDE (INHALATION) 0.5 MG/2 ML NEB NEB SCH ×2 (06:15→19:28)
[2021-05-05] MEDS: ALBUTEROL SULF 2.5 MG/0.5ML(0.5%) NEB SOLN NEB SCH ×3 (06:16→19:28)
[2021-05-05] MEDS: PROPOFOL 100 ML IV SCH (08:30)
[2021-05-05] MEDS: DOCUSATE ORAL LIQUID 100 MG/10 ML UD GT SCH (10:58)
[2021-05-05] MEDS: FUROSEMIDE 40 MG/4 ML VIAL IV SCH (10:59)
[2021-05-05] MEDS: PANTOPRAZOLE 40 MG/10 ML VIAL INJ IV SCH (11:00)
[2021-05-05] MEDS: AMIODARONE HCL 200 MG TAB PO SCH ×2 (11:00→21:26)
[2021-05-05] MEDS: ZINC SULFATE 220mg CAP or TAB PO SCH (11:00)
[2021-05-05] MEDS: APIXABAN 5 MG TAB PO SCH ×2 (11:01→21:26)
[2021-05-05] MEDS: CHOLECALCIFEROL (VITD3) 2,000 UNIT CAP/TAB PO SCH (11:02)
[2021-05-05] MEDS: METOPROLOL TARTRATE 25 MG TAB PO SCH ×2 (11:02→21:25)
[2021-05-05] MEDS: ASCORBIC ACID 500 MG TAB PO SCH (11:02)
[2021-05-05] MEDS: acetaZOLAMIDE SODIUM 500 MG VL IV SCH ×2 (11:15→21:30)
[2021-05-05] MEDS: fentaNYL Drip 2500mCg/250mlNS 250 ML IV SCH (11:15)
[2021-05-05] MEDS: POTASSIUM CHL 20MEQ/100ML 100 ML IV SCH ×3 (14:48→18:47)
[2021-05-05] MEDS: NOREPINEPHRINE 8 MG/250ML KIT 250 ML IV SCH (14:49)
[2021-05-06] VITALS (108 sets, daily range): BP systolic 113–160; BP diastolic 55–96
[2021-05-06] MEDS: MIDAZOLAM DRIP 50 mg/50mL 50 ML IV SCH ×7 (01:09→21:59)
[2021-05-06 05:06] LABS: Basophils # (auto) 0 10 ^3/uL (0-0.2); Basophils % (auto) 0.3 % (0.0-2.0); Eosinophils # (auto) 0.1 10 ^3/uL (0-0.8); Eosinophils % (auto) 2.1 % (0.0-7.0); Hematocrit 41.9 % (36.0-46.0); Hemoglobin 13.8 g/dL (12.2-16.2); Lymphocytes # (auto) 0.6 10 ^3/uL (0.4-5.4); Lymphocytes % (auto) 10.3 % (10.0-50.0); Mean Corpuscular Hgb Conc. 32.9 g/dL (32.0-36.0); Mean Corpuscular Volume 94.3 fL (80.0-100.0); Monocytes # (auto) 0.4 10 ^3/uL (0-1.3); Monocytes % (auto) 7.5 % (0.0-12.0); Neutrophils # (auto) 4.3 10 ^3/uL (1.6-8.6); Neutrophils % (auto) 79.8 % (37.0-80.0); Red Blood Cells 4.44 10^6/uL (4.0-5.20); Red Cell Distribution Width 16.1 % (11.8-14.3); White Blood Cell 5.4 10^3/uL (4.4-10.8)
[2021-05-06 05:27] LABS: Calcium 8.7 mg/dL (8.5-10.1); Potassium 3.2 mmol/L (3.5-5.1)
[2021-05-06 05:37] LABS: BUN/Creatinine Ratio 81.3; CRP High Sensitivity 6.82 mg/dL (< 0.3)
[2021-05-06] MEDS: InsuLIN REG 1unit/0.01ml Soln (100units/ml) SC SCH ×4 (06:00→18:00)
[2021-05-06] MEDS: BUDESONIDE (INHALATION) 0.5 MG/2 ML NEB NEB SCH ×2 (06:37→22:14)
[2021-05-06] MEDS: ALBUTEROL SULF 2.5 MG/0.5ML(0.5%) NEB SOLN NEB SCH ×3 (06:37→22:14)
[2021-05-06] MEDS: PROPOFOL 100 ML IV SCH (08:05)
[2021-05-06] MEDS: ACCU-CHEK COMFORT CURVE STRIP VI SCH ×4 (08:08→19:35)
[2021-05-06] MEDS: POTASSIUM CHL 20MEQ/100ML 100 ML IV SCH ×3 (10:24→15:56)
[2021-05-06] MEDS: DOCUSATE ORAL LIQUID 100 MG/10 ML UD GT SCH (10:26)
[2021-05-06] MEDS: PANTOPRAZOLE 40 MG/10 ML VIAL INJ IV SCH (10:27)
[2021-05-06] MEDS: FUROSEMIDE 40 MG/4 ML VIAL IV SCH (10:27)
[2021-05-06] MEDS: ZINC SULFATE 220mg CAP or TAB PO SCH (10:27)
[2021-05-06] MEDS: AMIODARONE HCL 200 MG TAB PO SCH ×2 (10:28→22:00)
[2021-05-06] MEDS: APIXABAN 5 MG TAB PO SCH ×2 (10:28→22:01)
[2021-05-06] MEDS: METOPROLOL TARTRATE 25 MG TAB PO SCH ×2 (10:29→22:01)
[2021-05-06] MEDS: CHOLECALCIFEROL (VITD3) 2,000 UNIT CAP/TAB PO SCH (10:29)
[2021-05-06] MEDS: ASCORBIC ACID 500 MG TAB PO SCH (10:29)
[2021-05-06] MEDS: fentaNYL Drip 2500mCg/250mlNS 250 ML IV SCH (11:15)
[2021-05-06] MEDS: acetaZOLAMIDE SODIUM 500 MG VL IV SCH ×2 (11:40→22:00)
[2021-05-06] MEDS: NOREPINEPHRINE 8 MG/250ML KIT 250 ML IV SCH (15:30)
[2021-05-07] VITALS (93 sets, daily range): BP systolic 98–152; BP diastolic 69–98
[2021-05-07] MEDS: MIDAZOLAM DRIP 50 mg/50mL 50 ML IV SCH ×8 (00:29→23:49)
[2021-05-07 04:36] LABS: Basophils # (auto) 0 10 ^3/uL (0-0.2); Basophils % (auto) 0.8 % (0.0-2.0); Eosinophils # (auto) 0.2 10 ^3/uL (0-0.8); Eosinophils % (auto) 3.1 % (0.0-7.0); Hematocrit 41.6 % (36.0-46.0); Hemoglobin 13.7 g/dL (12.2-16.2); Lymphocytes # (auto) 0.5 10 ^3/uL (0.4-5.4); Lymphocytes % (auto) 9.7 % (10.0-50.0); Mean Corpuscular Hemoglobin 31.1 pg (28.0-32.0); Mean Corpuscular Hgb Conc. 33.1 g/dL (32.0-36.0); Mean Corpuscular Volume 94.1 fL (80.0-100.0); Monocytes # (auto) 0.4 10 ^3/uL (0-1.3); Monocytes % (auto) 7.8 % (0.0-12.0); Neutrophils # (auto) 4.3 10 ^3/uL (1.6-8.6); Neutrophils % (auto) 78.6 % (37.0-80.0); Nucleated Red Blood Cells % 0.1 %; Red Blood Cells 4.42 10^6/uL (4.0-5.20); Red Cell Distribution Width 16.1 % (11.8-14.3); White Blood Cell 5.5 10^3/uL (4.4-10.8)
[2021-05-07 05:02] LABS: Potassium 3.4 mmol/L (3.5-5.1)
[2021-05-07] MEDS: InsuLIN REG 1unit/0.01ml Soln (100units/ml) SC SCH ×4 (05:42→18:00)
[2021-05-07] MEDS: ACCU-CHEK COMFORT CURVE STRIP VI SCH ×4 (05:42→19:20)
[2021-05-07] MEDS: ALBUTEROL SULF 2.5 MG/0.5ML(0.5%) NEB SOLN NEB SCH ×3 (06:00→19:19)
[2021-05-07] MEDS: PROPOFOL 100 ML IV SCH (08:06)
[2021-05-07] MEDS: DOCUSATE ORAL LIQUID 100 MG/10 ML UD GT SCH (10:07)
[2021-05-07] MEDS: acetaZOLAMIDE SODIUM 500 MG VL IV SCH ×2 (10:07→21:58)
[2021-05-07] MEDS: FUROSEMIDE 40 MG/4 ML VIAL IV SCH (10:08)
[2021-05-07] MEDS: PANTOPRAZOLE 40 MG/10 ML VIAL INJ IV SCH (10:08)
[2021-05-07] MEDS: AMIODARONE HCL 200 MG TAB PO SCH ×2 (10:09→21:58)
[2021-05-07] MEDS: APIXABAN 5 MG TAB PO SCH ×2 (10:10→21:59)
[2021-05-07] MEDS: ASCORBIC ACID 500 MG TAB PO SCH (10:10)
[2021-05-07] MEDS: ZINC SULFATE 220mg CAP or TAB PO SCH (10:11)
[2021-05-07] MEDS: CHOLECALCIFEROL (VITD3) 2,000 UNIT CAP/TAB PO SCH (10:11)
[2021-05-07] MEDS: METOPROLOL TARTRATE 25 MG TAB PO SCH (10:14)
[2021-05-07] MEDS: fentaNYL Drip 2500mCg/250mlNS 250 ML IV SCH (10:16)
[2021-05-07] MEDS: NOREPINEPHRINE 8 MG/250ML KIT 250 ML IV SCH (14:42)
[2021-05-07] MEDS: BUDESONIDE (INHALATION) 0.5 MG/2 ML NEB NEB SCH ×2 (15:02→19:19)
[2021-05-08] VITALS (77 sets, daily range): BP systolic 109–151; BP diastolic 67–103
[2021-05-08] MEDS: ACCU-CHEK COMFORT CURVE STRIP VI SCH ×4 (00:19→17:19)
[2021-05-08] MEDS: METOPROLOL TARTRATE 25 MG TAB PO SCH ×3 (00:19→22:15)
[2021-05-08] MEDS: MIDAZOLAM DRIP 50 mg/50mL 50 ML IV SCH ×7 (01:47→23:09)
[2021-05-08] MEDS: InsuLIN REG 1unit/0.01ml Soln (100units/ml) SC SCH ×4 (06:00→17:19)
[2021-05-08] MEDS: BUDESONIDE (INHALATION) 0.5 MG/2 ML NEB NEB SCH ×2 (06:06→18:42)
[2021-05-08] MEDS: ALBUTEROL SULF 2.5 MG/0.5ML(0.5%) NEB SOLN NEB SCH ×3 (06:06→18:42)
[2021-05-08] MEDS: PROPOFOL 100 ML IV SCH (07:38)
[2021-05-08] MEDS: PANTOPRAZOLE 40 MG/10 ML VIAL INJ IV SCH (08:05)
[2021-05-08] MEDS: ZINC SULFATE 220mg CAP or TAB PO SCH (08:05)
[2021-05-08] MEDS: FUROSEMIDE 40 MG/4 ML VIAL IV SCH (08:05)
[2021-05-08] MEDS: acetaZOLAMIDE SODIUM 500 MG VL IV SCH ×2 (08:06→22:14)
[2021-05-08] MEDS: DOCUSATE ORAL LIQUID 100 MG/10 ML UD GT SCH (08:06)
[2021-05-08] MEDS: AMIODARONE HCL 200 MG TAB PO SCH ×2 (08:06→22:14)
[2021-05-08] MEDS: APIXABAN 5 MG TAB PO SCH ×2 (08:07→22:14)
[2021-05-08] MEDS: CHOLECALCIFEROL (VITD3) 2,000 UNIT CAP/TAB PO SCH (08:07)
[2021-05-08] MEDS: ASCORBIC ACID 500 MG TAB PO SCH (08:08)
[2021-05-08 08:46] LABS: Basophils # (auto) 0 10 ^3/uL (0-0.2); Basophils % (auto) 0.6 % (0.0-2.0); Eosinophils # (auto) 0.1 10 ^3/uL (0-0.8); Eosinophils % (auto) 2.4 % (0.0-7.0); Hematocrit 42.5 % (36.0-46.0); Hemoglobin 14.1 g/dL (12.2-16.2); Lymphocytes # (auto) 0.5 10 ^3/uL (0.4-5.4); Lymphocytes % (auto) 8.5 % (10.0-50.0); Mean Corpuscular Hemoglobin 31.4 pg (28.0-32.0); Mean Corpuscular Hgb Conc. 33.1 g/dL (32.0-36.0); Mean Corpuscular Volume 94.8 fL (80.0-100.0); Monocytes # (auto) 0.5 10 ^3/uL (0-1.3); Monocytes % (auto) 8.6 % (0.0-12.0); Neutrophils # (auto) 4.6 10 ^3/uL (1.6-8.6); Neutrophils % (auto) 79.9 % (37.0-80.0); Nucleated Red Blood Cells % 0.2 %; Red Blood Cells 4.48 10^6/uL (4.0-5.20); White Blood Cell 5.8 10^3/uL (4.4-10.8)
[2021-05-08 09:03] LABS: Albumin 2.3 g/dL (3.4-5.0); Calcium 8.7 mg/dL (8.5-10.1); Potassium 3.1 mmol/L (3.5-5.1)
[2021-05-08 09:06] LABS: BUN/Creatinine Ratio 91.4; Bilirubin, Total 0.8 mg/dL (0.2-1.0); Total Protein 6.7 g/dL (6.4-8.2)
[2021-05-08] MEDS: fentaNYL Drip 2500mCg/250mlNS 250 ML IV SCH (09:15)
[2021-05-08] MEDS: POTASSIUM CHL 20MEQ/100ML 100 ML IV SCH ×2 (10:35→14:03)
[2021-05-08] MEDS: NOREPINEPHRINE 8 MG/250ML KIT 250 ML IV SCH (15:30)
[2021-05-09] VITALS (99 sets, daily range): BP systolic 88–141; BP diastolic 47–89
[2021-05-09] MEDS: ACCU-CHEK COMFORT CURVE STRIP VI SCH ×5 (00:48→23:23)
[2021-05-09] MEDS: MIDAZOLAM DRIP 50 mg/50mL 50 ML IV SCH ×7 (02:29→22:29)
[2021-05-09] MEDS: InsuLIN REG 1unit/0.01ml Soln (100units/ml) SC SCH ×5 (06:00→23:23)
[2021-05-09] MEDS: ALBUTEROL SULF 2.5 MG/0.5ML(0.5%) NEB SOLN NEB SCH ×3 (06:09→22:19)
[2021-05-09] MEDS: BUDESONIDE (INHALATION) 0.5 MG/2 ML NEB NEB SCH ×2 (06:09→22:19)
[2021-05-09] MEDS: PROPOFOL 100 ML IV SCH (06:11)
[2021-05-09] MEDS: acetaZOLAMIDE SODIUM 500 MG VL IV SCH ×2 (09:57→23:04)
[2021-05-09] MEDS: DOCUSATE ORAL LIQUID 100 MG/10 ML UD GT SCH (09:57)
[2021-05-09] MEDS: PANTOPRAZOLE 40 MG/10 ML VIAL INJ IV SCH (09:58)
[2021-05-09] MEDS: ZINC SULFATE 220mg CAP or TAB PO SCH (10:00)
[2021-05-09] MEDS: AMIODARONE HCL 200 MG TAB PO SCH ×2 (10:00→23:04)
[2021-05-09] MEDS: APIXABAN 5 MG TAB PO SCH ×2 (10:01→23:04)
[2021-05-09] MEDS: ASCORBIC ACID 500 MG TAB PO SCH (10:01)
[2021-05-09] MEDS: CHOLECALCIFEROL (VITD3) 2,000 UNIT CAP/TAB PO SCH (10:02)
[2021-05-09] MEDS: FUROSEMIDE 40 MG/4 ML VIAL IV SCH (10:13)
[2021-05-09] MEDS: fentaNYL Drip 2500mCg/250mlNS 250 ML IV SCH (11:15)
[2021-05-09] MEDS ORDERED: POTASSIUM CHL 20MEQ/100ML 300 ML IV ONE (12:06)
[2021-05-09] MEDS: POTASSIUM CHL 20MEQ/100ML 100 ML IV SCH ×3 (12:17→16:29)
[2021-05-09] MEDS: NOREPINEPHRINE 8 MG/250ML KIT 250 ML IV SCH (14:40)
[2021-05-09] MEDS: METOPROLOL TARTRATE 25 MG TAB PO SCH ×2 (23:05→23:22)
[2021-05-10] VITALS (93 sets, daily range): BP systolic 77–135; BP diastolic 27–88
[2021-05-10] MEDS ORDERED: ETOMIDATE (2MG/ML) 20ML VIAL IV ONE (02:28)
[2021-05-10] MEDS ORDERED: SUCCINYLCHOLINE CHLORIDE 20 MG/ML 10ML VIAL IV ONE (02:28)
[2021-05-10] MEDS ORDERED: ROCURONIUM 10MG/ML 10ML VIAL IV ONE (02:28)
[2021-05-10] MEDS: MIDAZOLAM DRIP 50 mg/50mL 50 ML IV SCH (03:15)
[2021-05-10] MEDS: NOREPINEPHRINE 8 MG/250ML KIT 250 ML IV SCH (03:30)
[2021-05-10 04:40] LABS: Basophils # (auto) 0 10 ^3/uL (0-0.2); Basophils % (auto) 0.4 % (0.0-2.0); Eosinophils # (auto) 0.1 10 ^3/uL (0-0.8); Hematocrit 43.5 % (36.0-46.0); Hemoglobin 14.3 g/dL (12.2-16.2); Lymphocytes # (auto) 0.5 10 ^3/uL (0.4-5.4); Lymphocytes % (auto) 6.6 % (10.0-50.0); Mean Corpuscular Hemoglobin 31.4 pg (28.0-32.0); Mean Corpuscular Hgb Conc. 32.8 g/dL (32.0-36.0); Mean Corpuscular Volume 95.7 fL (80.0-100.0); Monocytes # (auto) 0.4 10 ^3/uL (0-1.3); Monocytes % (auto) 5.8 % (0.0-12.0); Neutrophils % (auto) 86.2 % (37.0-80.0); Nucleated Red Blood Cells % 0.1 %; Red Blood Cells 4.55 10^6/uL (4.0-5.20); Red Cell Distribution Width 15.1 % (11.8-14.3)
[2021-05-10 04:47] LABS: Potassium 4.6 mmol/L (3.5-5.1)
[2021-05-10 04:59] LABS: BUN/Creatinine Ratio 112.2; CRP High Sensitivity 5.08 mg/dL (< 0.3); Calcium 8.6 mg/dL (8.5-10.1)
[2021-05-10] MEDS: ACCU-CHEK COMFORT CURVE STRIP VI SCH ×5 (05:21→23:35)
[2021-05-10] MEDS: InsuLIN REG 1unit/0.01ml Soln (100units/ml) SC SCH ×4 (05:22→23:36)
[2021-05-10] MEDS: ALBUTEROL SULF 2.5 MG/0.5ML(0.5%) NEB SOLN NEB SCH ×3 (06:36→21:06)
[2021-05-10] MEDS: BUDESONIDE (INHALATION) 0.5 MG/2 ML NEB NEB SCH ×2 (06:36→21:06)
[2021-05-10] MEDS: acetaZOLAMIDE SODIUM 500 MG VL IV SCH ×2 (10:00→22:53)
[2021-05-10] MEDS: PANTOPRAZOLE 40 MG/10 ML VIAL INJ IV SCH (10:00)
[2021-05-10] MEDS: DOCUSATE ORAL LIQUID 100 MG/10 ML UD GT SCH (10:00)
[2021-05-10] MEDS: METOPROLOL TARTRATE 25 MG TAB PO SCH ×2 (10:00→22:00)
[2021-05-10] MEDS: FUROSEMIDE 40 MG/4 ML VIAL IV SCH (10:00)
[2021-05-10] MEDS: ZINC SULFATE 220mg CAP or TAB PO SCH (13:38)
[2021-05-10] MEDS: AMIODARONE HCL 200 MG TAB PO SCH ×2 (13:40→22:55)
[2021-05-10] MEDS: APIXABAN 5 MG TAB PO SCH ×2 (13:41→22:54)
[2021-05-10] MEDS: ASCORBIC ACID 500 MG TAB PO SCH (13:41)
[2021-05-10] MEDS: CHOLECALCIFEROL (VITD3) 2,000 UNIT CAP/TAB PO SCH (13:42)
[2021-05-10] MEDS: PROPOFOL 100 ML IV SCH ×2 (16:00→19:57)
[2021-05-10] MEDS: fentaNYL Drip 2500mCg/250mlNS 250 ML IV SCH (16:00)
[2021-05-11] VITALS (97 sets, daily range): BP systolic 70–166; BP diastolic 44–111
[2021-05-11] MEDS: PROPOFOL 100 ML IV SCH ×4 (01:42→12:57)
[2021-05-11] MEDS: NOREPINEPHRINE 8 MG/250ML KIT 250 ML IV SCH ×2 (06:22→12:58)
[2021-05-11] MEDS: InsuLIN REG 1unit/0.01ml Soln (100units/ml) SC SCH ×3 (06:23→17:21)
[2021-05-11] MEDS: ACCU-CHEK COMFORT CURVE STRIP VI SCH ×3 (06:23→17:21)
[2021-05-11] MEDS: ALBUTEROL SULF 2.5 MG/0.5ML(0.5%) NEB SOLN NEB SCH ×2 (08:05→19:29)
[2021-05-11] MEDS: BUDESONIDE (INHALATION) 0.5 MG/2 ML NEB NEB SCH ×2 (08:06→19:29)
[2021-05-11 08:40] LABS: Basophils # (auto) 0.1 10 ^3/uL (0-0.2); Basophils % (auto) 0.7 % (0.0-2.0); Eosinophils # (auto) 0.3 10 ^3/uL (0-0.8); Eosinophils % (auto) 3.2 % (0.0-7.0); Hematocrit 44.1 % (36.0-46.0); Hemoglobin 14.3 g/dL (12.2-16.2); Lymphocytes # (auto) 0.9 10 ^3/uL (0.4-5.4); Lymphocytes % (auto) 11.3 % (10.0-50.0); Mean Corpuscular Hemoglobin 31.7 pg (28.0-32.0); Mean Corpuscular Hgb Conc. 32.6 g/dL (32.0-36.0); Mean Corpuscular Volume 97.5 fL (80.0-100.0); Monocytes # (auto) 0.8 10 ^3/uL (0-1.3); Neutrophils % (auto) 74.8 % (37.0-80.0); Nucleated Red Blood Cells % 0.3 %; Red Blood Cells 4.52 10^6/uL (4.0-5.20); Red Cell Distribution Width 16.1 % (11.8-14.3)
[2021-05-11 08:53] LABS: Albumin 2.3 g/dL (3.4-5.0); Magnesium 2.9 mg/dL (1.6-2.6); Potassium 4.1 mmol/L (3.5-5.1)
[2021-05-11 08:56] LABS: BUN/Creatinine Ratio 63.2; Bilirubin, Total 1.3 mg/dL (0.2-1.0); Total Protein 6.8 g/dL (6.4-8.2)
[2021-05-11] MEDS: FUROSEMIDE 40 MG/4 ML VIAL IV SCH (09:36)
[2021-05-11] MEDS: AMIODARONE HCL 200 MG TAB PO SCH (09:36)
[2021-05-11] MEDS: ZINC SULFATE 220mg CAP or TAB PO SCH (09:36)
[2021-05-11] MEDS: CHOLECALCIFEROL (VITD3) 2,000 UNIT CAP/TAB PO SCH (09:36)
[2021-05-11] MEDS: ASCORBIC ACID 500 MG TAB PO SCH (09:36)
[2021-05-11] MEDS: acetaZOLAMIDE SODIUM 500 MG VL IV SCH ×2 (09:37→22:00)
[2021-05-11] MEDS: DOCUSATE ORAL LIQUID 100 MG/10 ML UD GT SCH (09:37)
[2021-05-11] MEDS: PANTOPRAZOLE 40 MG/10 ML VIAL INJ IV SCH (09:37)
[2021-05-11] MEDS: APIXABAN 5 MG TAB PO SCH ×2 (09:37→22:00)
[2021-05-11] MEDS: fentaNYL Drip 2500mCg/250mlNS 250 ML IV SCH (11:15)
[2021-05-11] MEDS: METOPROLOL TARTRATE 25 MG TAB PO SCH ×2 (11:30→22:00)
[2021-05-11] MEDS ORDERED: FUROSEMIDE 40 MG/4 ML VIAL IV SCH (12:00)
[2021-05-11] MEDS ORDERED: AMIODARONE 450mg/250ml AE 250 ML IV ONE (14:52)
[2021-05-11] MEDS ORDERED: AMIODARONE HCL 150 MG in D5W 5% 100 ML IV ONE (15:00)
[2021-05-11] MEDS ORDERED: AMIODARONE 450mg/250ml AE 250 ML IV SCH (15:00)
[2021-05-11] MEDS ORDERED: PHENYLEPHRINE IV 250 ML IV ONE (15:22)
[2021-05-11] MEDS: PHENYLEPHRINE IV 250 ML IV SCH (15:25)
[2021-05-11] MEDS: VASOPRESSIN 50 UNITS in D5W 5% 247.5 ML IV SCH (15:30)
[2021-05-11 15:50] LABS: Basophils # (auto) 0.1 10 ^3/uL (0-0.2); Basophils % (auto) 0.7 % (0.0-2.0); Eosinophils # (auto) 0.3 10 ^3/uL (0-0.8); Eosinophils % (auto) 3.2 % (0.0-7.0); Hemoglobin 13.9 g/dL (12.2-16.2); Lymphocytes # (auto) 1.2 10 ^3/uL (0.4-5.4); Lymphocytes % (auto) 14.5 % (10.0-50.0); Mean Corpuscular Hemoglobin 30.6 pg (28.0-32.0); Mean Corpuscular Hgb Conc. 31.6 g/dL (32.0-36.0); Mean Corpuscular Volume 96.8 fL (80.0-100.0); Monocytes # (auto) 0.8 10 ^3/uL (0-1.3); Monocytes % (auto) 9.3 % (0.0-12.0); Neutrophils # (auto) 6.1 10 ^3/uL (1.6-8.6); Neutrophils % (auto) 72.3 % (37.0-80.0); Nucleated Red Blood Cells % 0.1 %; Red Blood Cells 4.55 10^6/uL (4.0-5.20); White Blood Cell 8.4 10^3/uL (4.4-10.8)
[2021-05-11 17:19] LABS: Albumin 2.2 g/dL (3.4-5.0); BUN/Creatinine Ratio 63.4; Bilirubin, Total 1.3 mg/dL (0.2-1.0); Calcium 8.8 mg/dL (8.5-10.1); Potassium 3.9 mmol/L (3.5-5.1); Total Protein 6.5 g/dL (6.4-8.2)
[2021-05-11] MEDS: AMIODARONE 450mg/250ml AE 250 ML IV SCH (21:00)
[2021-05-12] VITALS (101 sets, daily range): BP systolic 82–124; BP diastolic 39–71
[2021-05-12] MEDS: PHENYLEPHRINE IV 250 ML IV SCH ×2 (01:29→08:30)
[2021-05-12] MEDS: ACCU-CHEK COMFORT CURVE STRIP VI SCH ×4 (05:15→18:02)
[2021-05-12] MEDS: InsuLIN REG 1unit/0.01ml Soln (100units/ml) SC SCH ×4 (05:15→18:00)
[2021-05-12 06:09] LABS: Basophils # (auto) 0.1 10 ^3/uL (0-0.2); Basophils % (auto) 0.9 % (0.0-2.0); Calcium 8.2 mg/dL (8.5-10.1); Eosinophils # (auto) 0.2 10 ^3/uL (0-0.8); Eosinophils % (auto) 2.6 % (0.0-7.0); Hematocrit 38.9 % (36.0-46.0); Hemoglobin 12.6 g/dL (12.2-16.2); Lymphocytes # (auto) 0.8 10 ^3/uL (0.4-5.4); Lymphocytes % (auto) 10.2 % (10.0-50.0); Mean Corpuscular Hemoglobin 31.3 pg (28.0-32.0); Mean Corpuscular Hgb Conc. 32.5 g/dL (32.0-36.0); Mean Corpuscular Volume 96.4 fL (80.0-100.0); Monocytes # (auto) 0.8 10 ^3/uL (0-1.3); Monocytes % (auto) 9.7 % (0.0-12.0); Neutrophils # (auto) 5.9 10 ^3/uL (1.6-8.6); Neutrophils % (auto) 76.6 % (37.0-80.0); Nucleated Red Blood Cells % 0.1 %; Potassium 3.3 mmol/L (3.5-5.1); Red Blood Cells 4.03 10^6/uL (4.0-5.20); Red Cell Distribution Width 15.9 % (11.8-14.3); White Blood Cell 7.8 10^3/uL (4.4-10.8)
[2021-05-12 06:12] LABS: BUN/Creatinine Ratio 82.1
[2021-05-12] MEDS: METOPROLOL TARTRATE 25 MG TAB PO SCH ×2 (10:00→22:00)
[2021-05-12] MEDS: acetaZOLAMIDE SODIUM 500 MG VL IV SCH (10:00)
[2021-05-12] MEDS: DOCUSATE ORAL LIQUID 100 MG/10 ML UD GT SCH (10:00)
[2021-05-12] MEDS: APIXABAN 5 MG TAB PO SCH ×2 (10:00→22:00)
[2021-05-12] MEDS: ZINC SULFATE 220mg CAP or TAB PO SCH (10:17)
[2021-05-12] MEDS: ASCORBIC ACID 500 MG TAB PO SCH (10:17)
[2021-05-12] MEDS: CHOLECALCIFEROL (VITD3) 2,000 UNIT CAP/TAB PO SCH (10:17)
[2021-05-12] MEDS: FUROSEMIDE 40 MG/4 ML VIAL IV SCH (10:18)
[2021-05-12] MEDS: PANTOPRAZOLE 40 MG/10 ML VIAL INJ IV SCH (10:21)
[2021-05-12] MEDS: POTASSIUM CHL 20MEQ/100ML 100 ML IV SCH ×2 (10:22→13:04)
[2021-05-12] MEDS: PHENYLEPHRINE INJ 80 MG in SODIUM CHL 0.9% 242 ML IV SCH ×2 (10:23→17:24)
[2021-05-12] MEDS: PROPOFOL 100 ML IV SCH ×2 (10:55→17:25)
[2021-05-12] MEDS: fentaNYL Drip 2500mCg/250mlNS 250 ML IV SCH ×2 (11:15→17:24)
[2021-05-12] MEDS: AMIODARONE 450mg/250ml AE 250 ML IV SCH (12:00)
[2021-05-12] MEDS: ALBUTEROL SULF 2.5 MG/0.5ML(0.5%) NEB SOLN NEB SCH ×3 (14:26→22:25)
[2021-05-12] MEDS: BUDESONIDE (INHALATION) 0.5 MG/2 ML NEB NEB SCH ×2 (14:27→22:25)
[2021-05-12] MEDS: NOREPINEPHRINE 8 MG/250ML KIT 250 ML IV SCH (15:30)
[2021-05-12] MEDS: VASOPRESSIN 50 UNITS in D5W 5% 247.5 ML IV SCH (15:30)
[2021-05-12 19:26] LABS: Urine Bacteria NONE SEEN /hpf (None Seen); Urine Blood Negative /uL (Negative); Urine Specific Gravity 1.011 (1.001-1.035); Urine WBC 3 /hpf (0 - 5)
[2021-05-13] VITALS (103 sets, daily range): BP systolic 76–140; BP diastolic 40–82
[2021-05-13] MEDS: acetaZOLAMIDE SODIUM 500 MG VL IV SCH ×3 (00:17→22:19)
[2021-05-13] MEDS: NYSTATIN TOPICAL POWDER 15GM TOP SCH ×3 (00:17→22:20)
[2021-05-13] MEDS: ACCU-CHEK COMFORT CURVE STRIP VI SCH ×4 (00:17→18:19)
[2021-05-13] MEDS: AMIODARONE 450mg/250ml AE 250 ML IV SCH ×2 (03:00→18:21)
[2021-05-13] MEDS: InsuLIN REG 1unit/0.01ml Soln (100units/ml) SC SCH ×4 (06:00→18:19)
[2021-05-13] MEDS: ALBUTEROL SULF 2.5 MG/0.5ML(0.5%) NEB SOLN NEB SCH ×3 (06:11→22:06)
[2021-05-13] MEDS: BUDESONIDE (INHALATION) 0.5 MG/2 ML NEB NEB SCH ×2 (06:11→22:06)
[2021-05-13 06:37] LABS: BUN/Creatinine Ratio 108.9; Calcium 8.5 mg/dL (8.5-10.1); Potassium 3.6 mmol/L (3.5-5.1)
[2021-05-13 06:54] LABS: Basophils # (auto) 0 10 ^3/uL (0-0.2); Basophils % (auto) 0.7 % (0.0-2.0); Eosinophils # (auto) 0.2 10 ^3/uL (0-0.8); Eosinophils % (auto) 2.5 % (0.0-7.0); Hematocrit 37.1 % (36.0-46.0); Hemoglobin 12.2 g/dL (12.2-16.2); Lymphocytes # (auto) 0.8 10 ^3/uL (0.4-5.4); Lymphocytes % (auto) 10.5 % (10.0-50.0); Mean Corpuscular Hemoglobin 31.5 pg (28.0-32.0); Mean Corpuscular Hgb Conc. 32.9 g/dL (32.0-36.0); Mean Corpuscular Volume 95.5 fL (80.0-100.0); Monocytes # (auto) 0.6 10 ^3/uL (0-1.3); Monocytes % (auto) 8.6 % (0.0-12.0); Neutrophils # (auto) 5.7 10 ^3/uL (1.6-8.6); Neutrophils % (auto) 77.7 % (37.0-80.0); Nucleated Red Blood Cells % 0.3 %; Red Blood Cells 3.89 10^6/uL (4.0-5.20); Red Cell Distribution Width 15.8 % (11.8-14.3); White Blood Cell 7.3 10^3/uL (4.4-10.8)
[2021-05-13] MEDS: PHENYLEPHRINE INJ 80 MG in SODIUM CHL 0.9% 242 ML IV SCH (08:03)
[2021-05-13] MEDS: APIXABAN 5 MG TAB PO SCH ×2 (10:00→22:00)
[2021-05-13] MEDS: DOCUSATE ORAL LIQUID 100 MG/10 ML UD GT SCH (10:00)
[2021-05-13] MEDS: ASCORBIC ACID 500 MG TAB PO SCH (10:13)
[2021-05-13] MEDS: METOPROLOL TARTRATE 25 MG TAB PO SCH ×2 (10:13→22:00)
[2021-05-13] MEDS: PANTOPRAZOLE 40 MG/10 ML VIAL INJ IV SCH (10:13)
[2021-05-13] MEDS: CHOLECALCIFEROL (VITD3) 2,000 UNIT CAP/TAB PO SCH (10:14)
[2021-05-13] MEDS: ZINC SULFATE 220mg CAP or TAB PO SCH (10:14)
[2021-05-13] MEDS: FUROSEMIDE 40 MG/4 ML VIAL IV SCH (10:14)
[2021-05-13] MEDS: VASOPRESSIN 50 UNITS in D5W 5% 247.5 ML IV SCH (15:30)
[2021-05-13] MEDS: NOREPINEPHRINE 8 MG/250ML KIT 250 ML IV SCH (15:30)
[2021-05-13] MEDS: SOD CHL 0.45% 1,000 ML IV SCH (20:45)
[2021-05-14] VITALS (105 sets, daily range): BP systolic 88–137; BP diastolic 47–81
[2021-05-14] MEDS: ACCU-CHEK COMFORT CURVE STRIP VI SCH ×4 (00:04→18:00)
[2021-05-14 05:46] LABS: Basophils # (auto) 0 10 ^3/uL (0-0.2); Basophils % (auto) 0.7 % (0.0-2.0); Eosinophils # (auto) 0.1 10 ^3/uL (0-0.8); Eosinophils % (auto) 1.7 % (0.0-7.0); Hematocrit 36.8 % (36.0-46.0); Hemoglobin 12.3 g/dL (12.2-16.2); Lymphocytes # (auto) 0.5 10 ^3/uL (0.4-5.4); Lymphocytes % (auto) 9.2 % (10.0-50.0); Mean Corpuscular Hgb Conc. 33.5 g/dL (32.0-36.0); Mean Corpuscular Volume 95.5 fL (80.0-100.0); Monocytes # (auto) 0.5 10 ^3/uL (0-1.3); Monocytes % (auto) 8.7 % (0.0-12.0); Neutrophils # (auto) 4.7 10 ^3/uL (1.6-8.6); Neutrophils % (auto) 79.7 % (37.0-80.0); Nucleated Red Blood Cells % 0.2 %; Red Blood Cells 3.86 10^6/uL (4.0-5.20); Red Cell Distribution Width 16.1 % (11.8-14.3); White Blood Cell 5.9 10^3/uL (4.4-10.8)
[2021-05-14 05:52] LABS: Albumin 1.6 g/dL (3.4-5.0); Calcium 8.2 mg/dL (8.5-10.1)
[2021-05-14 05:57] LABS: BUN/Creatinine Ratio 88.6; Bilirubin, Total 2.2 mg/dL (0.2-1.0); Total Protein 5.4 g/dL (6.4-8.2)
[2021-05-14] MEDS: InsuLIN REG 1unit/0.01ml Soln (100units/ml) SC SCH ×4 (05:57→18:00)
[2021-05-14 06:00] LABS: Potassium 2.9 mmol/L (3.5-5.1)
[2021-05-14] MEDS: ALBUTEROL SULF 2.5 MG/0.5ML(0.5%) NEB SOLN NEB SCH ×3 (06:00→23:38)
[2021-05-14] MEDS: BUDESONIDE (INHALATION) 0.5 MG/2 ML NEB NEB SCH ×2 (06:00→23:39)
[2021-05-14] MEDS ORDERED: POTASSIUM CHL 20MEQ/100ML 100 ML IV ONE (06:12)
[2021-05-14] MEDS: POTASSIUM CHL 20MEQ/100ML 100 ML IV SCH ×4 (06:39→12:15)
[2021-05-14] MEDS: PROPOFOL 100 ML IV SCH (06:42)
[2021-05-14] MEDS: AMIODARONE 450mg/250ml AE 250 ML IV SCH (08:53)
[2021-05-14] MEDS: PHENYLEPHRINE INJ 80 MG in SODIUM CHL 0.9% 242 ML IV SCH ×2 (08:53→22:33)
[2021-05-14] MEDS: PANTOPRAZOLE 40 MG/10 ML VIAL INJ IV SCH (09:28)
[2021-05-14] MEDS: METOPROLOL TARTRATE 25 MG TAB PO SCH ×2 (09:28→21:48)
[2021-05-14] MEDS: ZINC SULFATE 220mg CAP or TAB PO SCH (09:29)
[2021-05-14] MEDS: CHOLECALCIFEROL (VITD3) 2,000 UNIT CAP/TAB PO SCH (09:29)
[2021-05-14] MEDS: ASCORBIC ACID 500 MG TAB PO SCH (09:29)
[2021-05-14] MEDS: FUROSEMIDE 40 MG/4 ML VIAL IV SCH (09:30)
[2021-05-14] MEDS: acetaZOLAMIDE SODIUM 500 MG VL IV SCH ×2 (09:30→21:56)
[2021-05-14] MEDS: APIXABAN 5 MG TAB PO SCH ×2 (10:00→21:47)
[2021-05-14] MEDS: NYSTATIN TOPICAL POWDER 15GM TOP SCH ×2 (10:00→21:56)
[2021-05-14] MEDS: DOCUSATE ORAL LIQUID 100 MG/10 ML UD GT SCH (10:00)
[2021-05-14] MEDS: PANTOPRAZOLE 40mg/50ML NS AE 50 ML IV SCH ×3 (12:45→22:45)
[2021-05-14] MEDS: NOREPINEPHRINE 8 MG/250ML KIT 250 ML IV SCH (15:30)
[2021-05-14] MEDS: VASOPRESSIN 50 UNITS in D5W 5% 247.5 ML IV SCH (19:55)
[2021-05-14] MEDS: SOD CHL 0.45% 1,000 ML IV SCH ×2 (20:01→23:25)
[2021-05-14 21:22] LABS: Calcium 8.6 mg/dL (8.5-10.1); Potassium 3.3 mmol/L (3.5-5.1)
[2021-05-14 21:27] LABS: BUN/Creatinine Ratio 76.2; Bilirubin, Total 1.6 mg/dL (0.2-1.0); Total Protein 6.1 g/dL (6.4-8.2)
[2021-05-14] MEDS: fentaNYL Drip 2500mCg/250mlNS 250 ML IV SCH (22:17)
[2021-05-15] VITALS (103 sets, daily range): BP systolic 82–145; BP diastolic 35–93
[2021-05-15] MEDS: ACCU-CHEK COMFORT CURVE STRIP VI SCH ×4 (00:24→18:45)
[2021-05-15] MEDS: AMIODARONE 450mg/250ml AE 250 ML IV SCH ×2 (00:37→18:44)
[2021-05-15] MEDS: PANTOPRAZOLE 40mg/50ML NS AE 50 ML IV SCH ×4 (05:04→21:51)
[2021-05-15] MEDS: POTASSIUM CHL 20MEQ/100ML 100 ML IV SCH ×2 (05:45→09:03)
[2021-05-15] MEDS: MAGNESIUM SULFATE 1GM/100ML 100 ML IV SCH ×2 (06:00→07:10)
[2021-05-15] MEDS: InsuLIN REG 1unit/0.01ml Soln (100units/ml) SC SCH ×4 (06:00→18:00)
[2021-05-15] MEDS: PROPOFOL 100 ML IV SCH (06:30)
[2021-05-15] MEDS: ALBUTEROL SULF 2.5 MG/0.5ML(0.5%) NEB SOLN NEB SCH ×3 (07:38→19:13)
[2021-05-15] MEDS: BUDESONIDE (INHALATION) 0.5 MG/2 ML NEB NEB SCH ×2 (07:38→19:13)
[2021-05-15] MEDS: PHENYLEPHRINE INJ 80 MG in SODIUM CHL 0.9% 242 ML IV SCH (09:04)
[2021-05-15] MEDS: DOCUSATE ORAL LIQUID 100 MG/10 ML UD GT SCH (09:07)
[2021-05-15] MEDS: METOPROLOL TARTRATE 25 MG TAB PO SCH ×2 (09:08→21:52)
[2021-05-15] MEDS: APIXABAN 5 MG TAB PO SCH ×2 (09:08→19:47)
[2021-05-15] MEDS: FUROSEMIDE 40 MG/4 ML VIAL IV SCH (09:31)
[2021-05-15] MEDS: acetaZOLAMIDE SODIUM 500 MG VL IV SCH ×2 (09:31→21:52)
[2021-05-15] MEDS: ASCORBIC ACID 500 MG TAB PO SCH (09:32)
[2021-05-15] MEDS: CHOLECALCIFEROL (VITD3) 2,000 UNIT CAP/TAB PO SCH (09:32)
[2021-05-15] MEDS: ZINC SULFATE 220mg CAP or TAB PO SCH (09:32)
[2021-05-15] MEDS: NYSTATIN TOPICAL POWDER 15GM TOP SCH ×2 (09:32→21:52)
[2021-05-15] MEDS: fentaNYL Drip 2500mCg/250mlNS 250 ML IV SCH (11:15)
[2021-05-15] MEDS: NOREPINEPHRINE 8 MG/250ML KIT 250 ML IV SCH (15:30)
[2021-05-15] MEDS: VASOPRESSIN 50 UNITS in D5W 5% 247.5 ML IV SCH (15:30)
[2021-05-15] MEDS: SOD CHL 0.45% 1,000 ML IV SCH (18:44)
[2021-05-15] MEDS: MIDODRINE HCL 10 MG TAB PO SCH (18:45)
[2021-05-16] VITALS (105 sets, daily range): BP systolic 97–146; BP diastolic 55–101
[2021-05-16] MEDS: SOD CHL 0.45% 1,000 ML IV SCH ×3 (03:58→20:00)
[2021-05-16] MEDS: PANTOPRAZOLE 40mg/50ML NS AE 50 ML IV SCH ×4 (03:58→14:45)
[2021-05-16] MEDS: MIDODRINE HCL 10 MG TAB PO SCH ×3 (05:58→18:56)
[2021-05-16] MEDS: InsuLIN REG 1unit/0.01ml Soln (100units/ml) SC SCH ×4 (06:00→18:00)
[2021-05-16] MEDS: AMIODARONE 450mg/250ml AE 250 ML IV SCH ×2 (06:00→07:00)
[2021-05-16] MEDS: ALBUTEROL SULF 2.5 MG/0.5ML(0.5%) NEB SOLN NEB SCH ×3 (06:15→22:07)
[2021-05-16] MEDS: BUDESONIDE (INHALATION) 0.5 MG/2 ML NEB NEB SCH ×2 (06:15→22:07)
[2021-05-16] MEDS: PROPOFOL 100 ML IV SCH (06:18)
[2021-05-16] MEDS: ACCU-CHEK COMFORT CURVE STRIP VI SCH ×4 (06:25→18:59)
[2021-05-16] MEDS: DOCUSATE ORAL LIQUID 100 MG/10 ML UD GT SCH (09:12)
[2021-05-16] MEDS: METOPROLOL TARTRATE 25 MG TAB PO SCH ×2 (09:13→22:00)
[2021-05-16] MEDS: APIXABAN 5 MG TAB PO SCH ×2 (09:13→22:00)
[2021-05-16] MEDS: FUROSEMIDE 40 MG/4 ML VIAL IV SCH (09:40)
[2021-05-16] MEDS: ZINC SULFATE 220mg CAP or TAB PO SCH (09:40)
[2021-05-16] MEDS: NYSTATIN TOPICAL POWDER 15GM TOP SCH ×2 (09:41→22:00)
[2021-05-16] MEDS: CHOLECALCIFEROL (VITD3) 2,000 UNIT CAP/TAB PO SCH (09:41)
[2021-05-16] MEDS: ASCORBIC ACID 500 MG TAB PO SCH (09:41)
[2021-05-16] MEDS: acetaZOLAMIDE SODIUM 500 MG VL IV SCH ×2 (09:42→22:30)
[2021-05-16 10:06] LABS: Hematocrit 36.7 % (36.0-46.0); Hemoglobin 12.2 g/dL (12.2-16.2); Mean Corpuscular Hemoglobin 31.3 pg (28.0-32.0); Mean Corpuscular Hgb Conc. 33.3 g/dL (32.0-36.0); Mean Corpuscular Volume 94.2 fL (80.0-100.0); Red Cell Distribution Width 15.4 % (11.8-14.3); White Blood Cell 5.5 10^3/uL (4.4-10.8)
[2021-05-16 10:39] LABS: Basophils % (manual) 0 (0.0-2.0); Blast Cells 0; Myelocytes % 0; Promyelocytes % 0; Reactive Lymphocytes 0
[2021-05-16 11:08] LABS: Potassium 3.2 mmol/L (3.5-5.1)
[2021-05-16 11:10] LABS: BUN/Creatinine Ratio 96.3; Calcium 7.8 mg/dL (8.5-10.1)
[2021-05-16 11:12] LABS: Band Neutrophils % (manual) 5; Eosinophils % (manual) 2 (0-7); Lymphocytes % (manual) 17 (10.0-50.0); Metamyelocytes % 1; Monocytes % (manual) 2 (0-12)
[2021-05-16] MEDS: fentaNYL Drip 2500mCg/250mlNS 250 ML IV SCH (11:15)
[2021-05-16] MEDS: VASOPRESSIN 50 UNITS in D5W 5% 247.5 ML IV SCH (15:30)
[2021-05-16] MEDS: NOREPINEPHRINE 8 MG/250ML KIT 250 ML IV SCH (15:30)
[2021-05-16] MEDS: MORPHINE SULFATE INJECTION 2 MG/ML SYRG IV PRN (20:00)
[2021-05-16] MEDS: AMIODARONE HCL 200 MG TAB PO SCH (22:00)
[2021-05-16] MEDS: PANTOPRAZOLE 40 MG/10 ML VIAL INJ IV SCH (22:00)
[2021-05-17] VITALS (103 sets, daily range): BP systolic 94–148; BP diastolic 49–87
[2021-05-17] MEDS: METOPROLOL TARTRATE 25 MG TAB PO SCH ×4 (01:10→22:25)
[2021-05-17] MEDS: MORPHINE SULFATE INJECTION 2 MG/ML SYRG IV PRN ×2 (01:13→23:25)
[2021-05-17 03:18] LABS: Basophils # (auto) 0 10 ^3/uL (0-0.2); Basophils % (auto) 0.3 % (0.0-2.0); Eosinophils # (auto) 0.1 10 ^3/uL (0-0.8); Eosinophils % (auto) 1.1 % (0.0-7.0); Hematocrit 36.5 % (36.0-46.0); Hemoglobin 12.2 g/dL (12.2-16.2); Lymphocytes # (auto) 0.6 10 ^3/uL (0.4-5.4); Lymphocytes % (auto) 11.7 % (10.0-50.0); Mean Corpuscular Hemoglobin 30.9 pg (28.0-32.0); Mean Corpuscular Hgb Conc. 33.3 g/dL (32.0-36.0); Mean Corpuscular Volume 92.9 fL (80.0-100.0); Monocytes # (auto) 0.5 10 ^3/uL (0-1.3); Monocytes % (auto) 9.3 % (0.0-12.0); Neutrophils # (auto) 3.7 10 ^3/uL (1.6-8.6); Neutrophils % (auto) 77.6 % (37.0-80.0); Nucleated Red Blood Cells % 0.2 %; Red Blood Cells 3.93 10^6/uL (4.0-5.20); Red Cell Distribution Width 15.3 % (11.8-14.3); White Blood Cell 4.8 10^3/uL (4.4-10.8)
[2021-05-17 03:52] LABS: BUN/Creatinine Ratio 88.9; Bilirubin, Total 1.6 mg/dL (0.2-1.0); Total Protein 5.3 g/dL (6.4-8.2)
[2021-05-17 03:53] LABS: Albumin 1.9 g/dL (3.4-5.0)
[2021-05-17 03:54] LABS: Potassium 2.9 mmol/L (3.5-5.1)
[2021-05-17] MEDS ORDERED: POTASSIUM EFFERVESENT TAB 25 MEQ GT ONE (04:00)
[2021-05-17] MEDS: POTASSIUM CHL 20MEQ/100ML 100 ML IV SCH ×2 (04:10→07:00)
[2021-05-17] MEDS ORDERED: POTASSIUM EFFERVESENT TAB 25 MEQ ONE (05:43)
[2021-05-17] MEDS: InsuLIN REG 1unit/0.01ml Soln (100units/ml) SC SCH ×4 (06:00→18:00)
[2021-05-17] MEDS: MIDODRINE HCL 10 MG TAB PO SCH ×3 (06:00→18:00)
[2021-05-17] MEDS: ACCU-CHEK COMFORT CURVE STRIP VI SCH ×4 (06:01→18:00)
[2021-05-17] MEDS: PHENYLEPHRINE INJ 80 MG in SODIUM CHL 0.9% 242 ML IV SCH (09:00)
[2021-05-17] MEDS: PANTOPRAZOLE 40 MG/10 ML VIAL INJ IV SCH ×2 (10:00→22:23)
[2021-05-17] MEDS: DOCUSATE ORAL LIQUID 100 MG/10 ML UD GT SCH (10:00)
[2021-05-17] MEDS: ASCORBIC ACID 500 MG TAB PO SCH (10:30)
[2021-05-17] MEDS: AMIODARONE HCL 200 MG TAB PO SCH ×2 (10:30→22:24)
[2021-05-17] MEDS: ZINC SULFATE 220mg CAP or TAB PO SCH (10:30)
[2021-05-17] MEDS: NYSTATIN TOPICAL POWDER 15GM TOP SCH ×2 (10:30→22:21)
[2021-05-17] MEDS: FUROSEMIDE 40 MG/4 ML VIAL IV SCH (10:30)
[2021-05-17] MEDS: CHOLECALCIFEROL (VITD3) 2,000 UNIT CAP/TAB PO SCH (10:30)
[2021-05-17] MEDS: acetaZOLAMIDE SODIUM 500 MG VL IV SCH ×2 (10:30→22:23)
[2021-05-17] MEDS: APIXABAN 5 MG TAB PO SCH ×2 (10:30→22:00)
[2021-05-17] MEDS: VASOPRESSIN 50 UNITS in D5W 5% 247.5 ML IV SCH (15:30)
[2021-05-17] MEDS: NOREPINEPHRINE 8 MG/250ML KIT 250 ML IV SCH (15:30)
[2021-05-17] MEDS: SOD CHL 0.45% 1,000 ML IV SCH (18:05)
[2021-05-17] MEDS ORDERED: FUROSEMIDE 40 MG/4 ML VIAL IV ONE (18:30)
[2021-05-17] MEDS ORDERED: POTASSIUM EFFERVESENT TAB 25 MEQ PO ONE (19:00)
[2021-05-18] VITALS (57 sets, daily range): BP systolic 93–143; BP diastolic 56–86
[2021-05-18] MEDS: MORPHINE SULFATE INJECTION 2 MG/ML SYRG IV PRN ×2 (05:01→12:13)
[2021-05-18] MEDS: MIDODRINE HCL 10 MG TAB PO SCH ×3 (06:00→22:00)
[2021-05-18] MEDS: ACCU-CHEK COMFORT CURVE STRIP VI SCH ×4 (06:00→17:37)
[2021-05-18] MEDS: InsuLIN REG 1unit/0.01ml Soln (100units/ml) SC SCH ×4 (06:00→17:37)
[2021-05-18] MEDS: SOD CHL 0.45% 1,000 ML IV SCH ×2 (06:51→17:46)
[2021-05-18] MEDS: PHENYLEPHRINE INJ 80 MG in SODIUM CHL 0.9% 242 ML IV SCH (09:00)
[2021-05-18] MEDS: DOCUSATE ORAL LIQUID 100 MG/10 ML UD GT SCH (10:00)
[2021-05-18] MEDS: APIXABAN 5 MG TAB PO SCH ×2 (10:00→22:00)
[2021-05-18] MEDS: METOPROLOL TARTRATE 25 MG TAB PO SCH ×2 (10:00→22:00)
[2021-05-18] MEDS: PANTOPRAZOLE 40 MG/10 ML VIAL INJ IV SCH ×2 (10:18→22:00)
[2021-05-18] MEDS: FUROSEMIDE 40 MG/4 ML VIAL IV SCH (10:19)
[2021-05-18] MEDS: AMIODARONE HCL 200 MG TAB PO SCH ×2 (10:19→22:00)
[2021-05-18] MEDS: acetaZOLAMIDE SODIUM 500 MG VL IV SCH ×2 (10:20→22:00)
[2021-05-18] MEDS: NOREPINEPHRINE 8 MG/250ML KIT 250 ML IV SCH (10:21)
[2021-05-18] MEDS: NYSTATIN TOPICAL POWDER 15GM TOP SCH ×2 (10:21→22:00)
[2021-05-18] MEDS: VASOPRESSIN 50 UNITS in D5W 5% 247.5 ML IV SCH (10:22)
[2021-05-18] MEDS: Glucerna 1.2 Cal 1Liter BOTTLE GT SCH (17:38)
[2021-05-19] VITALS (48 sets, daily range): BP systolic 101–136; BP diastolic 30–93
[2021-05-19 05:31] LABS: BUN/Creatinine Ratio 81.3; Calcium 7.8 mg/dL (8.5-10.1); Potassium 3.1 mmol/L (3.5-5.1)
[2021-05-19] MEDS: ACCU-CHEK COMFORT CURVE STRIP VI SCH ×4 (06:00→17:14)
[2021-05-19] MEDS: InsuLIN REG 1unit/0.01ml Soln (100units/ml) SC SCH ×4 (06:00→17:13)
[2021-05-19] MEDS: POTASSIUM CHL 20MEQ/100ML 100 ML IV SCH ×2 (09:21→10:25)
[2021-05-19] MEDS: PANTOPRAZOLE 40 MG/10 ML VIAL INJ IV SCH ×2 (09:43→22:00)
[2021-05-19] MEDS: DOCUSATE ORAL LIQUID 100 MG/10 ML UD GT SCH (09:44)
[2021-05-19] MEDS: FUROSEMIDE 40 MG/4 ML VIAL IV SCH (09:44)
[2021-05-19] MEDS: AMIODARONE HCL 200 MG TAB PO SCH ×2 (09:46→22:00)
[2021-05-19] MEDS: APIXABAN 5 MG TAB PO SCH ×2 (09:46→22:00)
[2021-05-19] MEDS: MIDODRINE HCL 10 MG TAB PO SCH ×2 (09:47→22:00)
[2021-05-19] MEDS: METOPROLOL TARTRATE 25 MG TAB PO SCH ×2 (09:47→11:50)
[2021-05-19] MEDS: acetaZOLAMIDE SODIUM 500 MG VL IV SCH ×2 (10:00→22:00)
[2021-05-19] MEDS: NYSTATIN TOPICAL POWDER 15GM TOP SCH ×2 (10:12→22:00)
[2021-05-19] MEDS: MORPHINE SULFATE INJECTION 2 MG/ML SYRG IV PRN (13:32)
[2021-05-19] MEDS: Glucerna 1.2 Cal 1Liter BOTTLE GT SCH (20:00)
[2021-05-19] MEDS: SOD CHL 0.45% 1,000 ML IV SCH (21:22)
[2021-05-20] VITALS (36 sets, daily range): BP systolic 88–152; BP diastolic 48–76
[2021-05-20] MEDS: InsuLIN REG 1unit/0.01ml Soln (100units/ml) SC SCH ×4 (05:59→17:26)
[2021-05-20] MEDS: ACCU-CHEK COMFORT CURVE STRIP VI SCH ×4 (06:00→17:26)
[2021-05-20 06:11] LABS: Calcium 7.8 mg/dL (8.5-10.1); Potassium 3.1 mmol/L (3.5-5.1)
[2021-05-20 06:13] LABS: BUN/Creatinine Ratio 83.3
[2021-05-20] MEDS: PHENYLEPHRINE INJ 80 MG in SODIUM CHL 0.9% 242 ML IV SCH (09:00)
[2021-05-20] MEDS: SOD CHL 0.45% 1,000 ML IV SCH ×2 (09:10→12:45)
[2021-05-20] MEDS: acetaZOLAMIDE SODIUM 500 MG VL IV SCH ×2 (10:00→22:06)
[2021-05-20] MEDS: DOCUSATE ORAL LIQUID 100 MG/10 ML UD GT SCH (10:00)
[2021-05-20] MEDS: NOREPINEPHRINE 8 MG/250ML KIT 250 ML IV SCH (11:19)
[2021-05-20] MEDS: VASOPRESSIN 50 UNITS in D5W 5% 247.5 ML IV SCH (11:19)
[2021-05-20] MEDS: POTASSIUM CHL 20MEQ/100ML 100 ML IV SCH ×3 (11:22→18:26)
[2021-05-20] MEDS: PANTOPRAZOLE 40 MG/10 ML VIAL INJ IV SCH ×2 (11:40→22:06)
[2021-05-20] MEDS: FUROSEMIDE 40 MG/4 ML VIAL IV SCH (11:41)
[2021-05-20] MEDS: MIDODRINE HCL 10 MG TAB PO SCH ×2 (11:42→22:04)
[2021-05-20] MEDS: AMIODARONE HCL 200 MG TAB PO SCH ×2 (11:46→22:06)
[2021-05-20] MEDS: METOPROLOL TARTRATE 25 MG TAB PO SCH ×3 (11:47→22:00)
[2021-05-20] MEDS: APIXABAN 5 MG TAB PO SCH (11:47)
[2021-05-20] MEDS: NYSTATIN TOPICAL POWDER 15GM TOP SCH ×2 (11:47→22:03)
[2021-05-20] MEDS: MORPHINE SULFATE INJECTION 2 MG/ML SYRG IV PRN (12:22)
[2021-05-20] MEDS: MAGNESIUM SULFATE 1GM/100ML 100 ML IV SCH ×2 (16:17→17:25)
[2021-05-20 22:33] LABS: Magnesium 2.2 mg/dL (1.6-2.6); Potassium 3.8 mmol/L (3.5-5.1)
[2021-05-21] VITALS (33 sets, daily range): BP systolic 95–127; BP diastolic 56–79
[2021-05-21 05:00] LABS: Basophils # (auto) 0 10 ^3/uL (0-0.2); Basophils % (auto) 0.4 % (0.0-2.0); Eosinophils # (auto) 0 10 ^3/uL (0-0.8); Eosinophils % (auto) 0.5 % (0.0-7.0); Hematocrit 33.9 % (36.0-46.0); Hemoglobin 11.2 g/dL (12.2-16.2); Lymphocytes # (auto) 0.6 10 ^3/uL (0.4-5.4); Lymphocytes % (auto) 8.4 % (10.0-50.0); Mean Corpuscular Hemoglobin 31.3 pg (28.0-32.0); Mean Corpuscular Hgb Conc. 33.2 g/dL (32.0-36.0); Mean Corpuscular Volume 94.5 fL (80.0-100.0); Monocytes # (auto) 0.8 10 ^3/uL (0-1.3); Neutrophils # (auto) 6.1 10 ^3/uL (1.6-8.6); Neutrophils % (auto) 80.7 % (37.0-80.0); Red Blood Cells 3.59 10^6/uL (4.0-5.20); Red Cell Distribution Width 15.2 % (11.8-14.3); White Blood Cell 7.5 10^3/uL (4.4-10.8)
[2021-05-21] MEDS: ACCU-CHEK COMFORT CURVE STRIP VI SCH ×4 (05:05→17:55)
[2021-05-21] MEDS: InsuLIN REG 1unit/0.01ml Soln (100units/ml) SC SCH ×4 (05:05→17:54)
[2021-05-21 05:17] LABS: BUN/Creatinine Ratio 72.2; Calcium 8.2 mg/dL (8.5-10.1); Potassium 3.5 mmol/L (3.5-5.1)
[2021-05-21] MEDS: PHENYLEPHRINE INJ 80 MG in SODIUM CHL 0.9% 242 ML IV SCH (09:00)
[2021-05-21] MEDS: SOD CHL 0.45% 1,000 ML IV SCH ×3 (09:37→22:34)
[2021-05-21] MEDS: DOCUSATE ORAL LIQUID 100 MG/10 ML UD GT SCH (10:32)
[2021-05-21] MEDS: POTASSIUM EFFERVESENT TAB 25 MEQ GT SCH (10:32)
[2021-05-21] MEDS: FUROSEMIDE 40 MG/4 ML VIAL IV SCH (10:34)
[2021-05-21] MEDS: acetaZOLAMIDE SODIUM 500 MG VL IV SCH ×2 (10:34→22:32)
[2021-05-21] MEDS: METOPROLOL TARTRATE 25 MG TAB PO SCH ×2 (10:35→22:00)
[2021-05-21] MEDS: AMIODARONE HCL 200 MG TAB PO SCH ×2 (10:35→22:32)
[2021-05-21] MEDS: PANTOPRAZOLE 40 MG/10 ML VIAL INJ IV SCH ×2 (10:35→22:32)
[2021-05-21] MEDS: MAGNESIUM OXIDE 400 MG TAB PO SCH (10:36)
[2021-05-21] MEDS: ENOXAPARIN SOD 30 MG/0.3 ML SYRINGE SC SCH (10:36)
[2021-05-21] MEDS: MIDODRINE HCL 10 MG TAB PO SCH ×2 (10:36→22:33)
[2021-05-21] MEDS: NYSTATIN TOPICAL POWDER 15GM TOP SCH ×2 (10:37→22:33)
[2021-05-21] MEDS: VASOPRESSIN 50 UNITS in D5W 5% 247.5 ML IV SCH (15:28)
[2021-05-21] MEDS: NOREPINEPHRINE 8 MG/250ML KIT 250 ML IV SCH (15:28)
[2021-05-21] MEDS: MORPHINE SULFATE INJECTION 2 MG/ML SYRG IV PRN (18:15)
[2021-05-21] MEDS: MIDAZOLAM HCL 2MG/2ML 2ml VIAL (1mg/ml) IV PRN (18:16)
[2021-05-22] VITALS (30 sets, daily range): BP systolic 97–123; BP diastolic 50–81
[2021-05-22] MEDS: InsuLIN REG 1unit/0.01ml Soln (100units/ml) SC SCH ×5 (06:00→23:46)
[2021-05-22] MEDS: ACCU-CHEK COMFORT CURVE STRIP VI SCH ×5 (06:07→23:46)
[2021-05-22] MEDS: POTASSIUM EFFERVESENT TAB 25 MEQ GT SCH (08:29)
[2021-05-22] MEDS: PHENYLEPHRINE INJ 80 MG in SODIUM CHL 0.9% 242 ML IV SCH (08:29)
[2021-05-22] MEDS: NYSTATIN TOPICAL POWDER 15GM TOP SCH ×2 (08:31→22:33)
[2021-05-22] MEDS: MIDODRINE HCL 10 MG TAB PO SCH ×2 (08:31→22:32)
[2021-05-22] MEDS: AMIODARONE HCL 200 MG TAB PO SCH ×2 (08:31→22:32)
[2021-05-22] MEDS: MAGNESIUM OXIDE 400 MG TAB PO SCH (08:32)
[2021-05-22] MEDS: PANTOPRAZOLE 40 MG/10 ML VIAL INJ IV SCH ×2 (08:32→22:31)
[2021-05-22] MEDS: FUROSEMIDE 40 MG/4 ML VIAL IV SCH (08:32)
[2021-05-22] MEDS: DOCUSATE ORAL LIQUID 100 MG/10 ML UD GT SCH (08:34)
[2021-05-22] MEDS: ENOXAPARIN SOD 30 MG/0.3 ML SYRINGE SC SCH (08:35)
[2021-05-22] MEDS: METOPROLOL TARTRATE 25 MG TAB PO SCH ×2 (10:00→22:00)
[2021-05-22] MEDS: NOREPINEPHRINE 8 MG/250ML KIT 250 ML IV SCH (11:32)
[2021-05-22] MEDS: VASOPRESSIN 50 UNITS in D5W 5% 247.5 ML IV SCH (11:32)
[2021-05-22] MEDS: acetaZOLAMIDE SODIUM 500 MG VL IV SCH (13:16)
[2021-05-22] MEDS: HYDROcodone-ACET 5/325MG TAB PO PRN (16:00)
[2021-05-22] MEDS: SOD CHL 0.45% 1,000 ML IV SCH (17:41)
[2021-05-23] VITALS (29 sets, daily range): BP systolic 88–128; BP diastolic 57–85
[2021-05-23 04:34] LABS: Basophils # (auto) 0 10 ^3/uL (0-0.2); Basophils % (auto) 0.5 % (0.0-2.0); Eosinophils # (auto) 0 10 ^3/uL (0-0.8); Eosinophils % (auto) 0.7 % (0.0-7.0); Hematocrit 33.2 % (36.0-46.0); Hemoglobin 11.2 g/dL (12.2-16.2); Lymphocytes # (auto) 0.6 10 ^3/uL (0.4-5.4); Lymphocytes % (auto) 12.6 % (10.0-50.0); Mean Corpuscular Hemoglobin 31.8 pg (28.0-32.0); Mean Corpuscular Hgb Conc. 33.6 g/dL (32.0-36.0); Mean Corpuscular Volume 94.5 fL (80.0-100.0); Monocytes # (auto) 0.5 10 ^3/uL (0-1.3); Monocytes % (auto) 10.9 % (0.0-12.0); Neutrophils # (auto) 3.6 10 ^3/uL (1.6-8.6); Neutrophils % (auto) 75.3 % (37.0-80.0); Red Blood Cells 3.52 10^6/uL (4.0-5.20); Red Cell Distribution Width 15.3 % (11.8-14.3); White Blood Cell 4.8 10^3/uL (4.4-10.8)
[2021-05-23 04:49] LABS: INR 1.36 (0.9-1.15); Partial Thromboplastin Time 31.5 sec (23.6-33.0)
[2021-05-23 04:54] LABS: Albumin 1.9 g/dL (3.4-5.0); Calcium 7.6 mg/dL (8.5-10.1); Potassium 3.4 mmol/L (3.5-5.1)
[2021-05-23 04:57] LABS: Total Protein 5.3 g/dL (6.4-8.2)
[2021-05-23] MEDS: SOD CHL 0.45% 1,000 ML IV SCH ×2 (05:00→20:45)
[2021-05-23] MEDS: InsuLIN REG 1unit/0.01ml Soln (100units/ml) SC SCH ×3 (05:54→17:49)
[2021-05-23] MEDS: ACCU-CHEK COMFORT CURVE STRIP VI SCH ×3 (05:54→17:49)
[2021-05-23] MEDS: PHENYLEPHRINE INJ 80 MG in SODIUM CHL 0.9% 242 ML IV SCH (09:43)
[2021-05-23] MEDS: DOCUSATE ORAL LIQUID 100 MG/10 ML UD GT SCH (09:44)
[2021-05-23] MEDS: POTASSIUM EFFERVESENT TAB 25 MEQ GT SCH (09:46)
[2021-05-23] MEDS: AMIODARONE HCL 200 MG TAB PO SCH ×2 (09:47→21:36)
[2021-05-23] MEDS: METOPROLOL TARTRATE 25 MG TAB PO SCH ×2 (09:47→21:36)
[2021-05-23] MEDS: PANTOPRAZOLE 40 MG/10 ML VIAL INJ IV SCH ×2 (09:47→21:36)
[2021-05-23] MEDS: FUROSEMIDE 40 MG/4 ML VIAL IV SCH (09:47)
[2021-05-23] MEDS: ENOXAPARIN SOD 30 MG/0.3 ML SYRINGE SC SCH (09:48)
[2021-05-23] MEDS: MIDODRINE HCL 10 MG TAB PO SCH ×3 (09:48→21:36)
[2021-05-23] MEDS: MAGNESIUM OXIDE 400 MG TAB PO SCH (09:48)
[2021-05-23] MEDS: NYSTATIN TOPICAL POWDER 15GM TOP SCH ×2 (09:49→21:36)
[2021-05-23] MEDS: NOREPINEPHRINE 8 MG/250ML KIT 250 ML IV SCH (15:30)
[2021-05-23] MEDS: VASOPRESSIN 50 UNITS in D5W 5% 247.5 ML IV SCH (15:30)
[2021-05-23] MEDS ORDERED: PHENYLEPHRINE IV 250 ML IV ONE (20:31)
[2021-05-24] VITALS (29 sets, daily range): BP systolic 101–146; BP diastolic 62–96
[2021-05-24] MEDS: ACCU-CHEK COMFORT CURVE STRIP VI SCH ×4 (00:29→18:45)
[2021-05-24] MEDS: SOD CHL 0.45% 1,000 ML IV SCH ×2 (04:30→19:13)
[2021-05-24] MEDS: ACETAMINOPHEN 325 MG TAB PO PRN (04:50)
[2021-05-24] MEDS: InsuLIN REG 1unit/0.01ml Soln (100units/ml) SC SCH ×4 (05:26→18:45)
[2021-05-24] MEDS: PHENYLEPHRINE INJ 80 MG in SODIUM CHL 0.9% 242 ML IV SCH (08:57)
[2021-05-24] MEDS: POTASSIUM EFFERVESENT TAB 25 MEQ GT SCH (09:58)
[2021-05-24] MEDS: DOCUSATE ORAL LIQUID 100 MG/10 ML UD GT SCH (09:58)
[2021-05-24] MEDS: PANTOPRAZOLE 40 MG/10 ML VIAL INJ IV SCH ×2 (09:59→22:12)
[2021-05-24] MEDS: FUROSEMIDE 40 MG/4 ML VIAL IV SCH (09:59)
[2021-05-24] MEDS: AMIODARONE HCL 200 MG TAB PO SCH ×2 (09:59→22:14)
[2021-05-24] MEDS: MAGNESIUM OXIDE 400 MG TAB PO SCH (10:00)
[2021-05-24] MEDS: METOPROLOL TARTRATE 25 MG TAB PO SCH ×2 (10:00→22:00)
[2021-05-24] MEDS: ENOXAPARIN SOD 30 MG/0.3 ML SYRINGE SC SCH (10:00)
[2021-05-24] MEDS: MIDODRINE HCL 10 MG TAB PO SCH ×2 (10:00→22:15)
[2021-05-24] MEDS: NYSTATIN TOPICAL POWDER 15GM TOP SCH ×2 (10:40→22:15)
[2021-05-24] MEDS: MIDAZOLAM HCL 2MG/2ML 2ml VIAL (1mg/ml) IV PRN (12:15)
[2021-05-24] MEDS: MORPHINE SULFATE INJECTION 2 MG/ML SYRG IV PRN (15:10)
[2021-05-24] MEDS: VASOPRESSIN 50 UNITS in D5W 5% 247.5 ML IV SCH (15:30)
[2021-05-24] MEDS: NOREPINEPHRINE 8 MG/250ML KIT 250 ML IV SCH (15:30)
[2021-05-24 19:34] LABS: Basophils # (auto) 0 10 ^3/uL (0-0.2); Basophils % (auto) 0.7 % (0.0-2.0); Eosinophils # (auto) 0 10 ^3/uL (0-0.8); Eosinophils % (auto) 0.3 % (0.0-7.0); Hematocrit 34.7 % (36.0-46.0); Hemoglobin 11.7 g/dL (12.2-16.2); Lymphocytes # (auto) 0.7 10 ^3/uL (0.4-5.4); Lymphocytes % (auto) 13.5 % (10.0-50.0); Mean Corpuscular Hemoglobin 31.8 pg (28.0-32.0); Mean Corpuscular Hgb Conc. 33.7 g/dL (32.0-36.0); Mean Corpuscular Volume 94.3 fL (80.0-100.0); Monocytes # (auto) 0.5 10 ^3/uL (0-1.3); Monocytes % (auto) 9.3 % (0.0-12.0); Neutrophils # (auto) 3.7 10 ^3/uL (1.6-8.6); Neutrophils % (auto) 76.2 % (37.0-80.0); Nucleated Red Blood Cells % 0.2 %; Red Blood Cells 3.68 10^6/uL (4.0-5.20); Red Cell Distribution Width 15.5 % (11.8-14.3); White Blood Cell 4.9 10^3/uL (4.4-10.8)
[2021-05-24 20:01] LABS: Potassium 3.4 mmol/L (3.5-5.1)
[2021-05-24 20:08] LABS: Albumin 2.1 g/dL (3.4-5.0); BUN/Creatinine Ratio 58.1; Calcium 8.4 mg/dL (8.5-10.1); Magnesium 2.2 mg/dL (1.6-2.6); Total Protein 6.5 g/dL (6.4-8.2)
[2021-05-25] VITALS (39 sets, daily range): BP systolic 101–145; BP diastolic 63–101
[2021-05-25] MEDS: ACCU-CHEK COMFORT CURVE STRIP VI SCH ×5 (05:45→23:34)
[2021-05-25] MEDS: InsuLIN REG 1unit/0.01ml Soln (100units/ml) SC SCH ×5 (05:46→23:34)
[2021-05-25 06:17] LABS: INR 1.38 (0.9-1.15)
[2021-05-25] MEDS: SOD CHL 0.45% 1,000 ML IV SCH (08:09)
[2021-05-25] MEDS: PHENYLEPHRINE INJ 80 MG in SODIUM CHL 0.9% 242 ML IV SCH (09:00)
[2021-05-25] MEDS: NYSTATIN TOPICAL POWDER 15GM TOP SCH ×2 (09:00→22:18)
[2021-05-25] MEDS: FUROSEMIDE 40 MG/4 ML VIAL IV SCH (09:14)
[2021-05-25] MEDS: PANTOPRAZOLE 40 MG/10 ML VIAL INJ IV SCH ×2 (09:16→22:16)
[2021-05-25] MEDS ORDERED: LIDOCAINE W/ EPINEPHRINE 1% 20ML VIAL ONE (09:39)
[2021-05-25] MEDS: METOPROLOL TARTRATE 25 MG TAB PO SCH ×2 (10:00→22:00)
[2021-05-25] MEDS: POTASSIUM EFFERVESENT TAB 25 MEQ GT SCH (10:00)
[2021-05-25] MEDS: DOCUSATE ORAL LIQUID 100 MG/10 ML UD GT SCH (10:00)
[2021-05-25] MEDS: AMIODARONE HCL 200 MG TAB PO SCH ×2 (10:00→22:00)
[2021-05-25] MEDS: MIDODRINE HCL 10 MG TAB PO SCH ×2 (10:00→22:00)
[2021-05-25] MEDS: MAGNESIUM OXIDE 400 MG TAB PO SCH (10:00)
[2021-05-25] MEDS ORDERED: HYDROmorphone HCL 2 MG/ML VL ONE ×2 (10:03→10:26)
[2021-05-25] MEDS ORDERED: fentaNYL CITRATE 100 MCG/2 ML VL ONE ×2 (10:04→10:36)
[2021-05-25] MEDS ORDERED: MIDAZOLAM HCL 2MG/2ML 2ml VIAL (1mg/ml) ONE (10:04)
[2021-05-25] MEDS ORDERED: DexAMETHasone SOD PHOS 10MG/1ML VIAL INJ ONE (10:06)
[2021-05-25] MEDS ORDERED: POTASSIUM CHL 20MEQ/100ML 100 ML IV ONE (12:30)
[2021-05-25] MEDS: VASOPRESSIN 50 UNITS in D5W 5% 247.5 ML IV SCH (15:30)
[2021-05-25] MEDS: NOREPINEPHRINE 8 MG/250ML KIT 250 ML IV SCH (15:30)
[2021-05-25] MEDS: MORPHINE SULFATE INJECTION 2 MG/ML SYRG IV PRN ×2 (16:28→23:32)
[2021-05-25] MEDS: METOPROLOL TARTRATE 1MG/1ML-5ML VIAL IV PRN (16:39)
[2021-05-26] VITALS (35 sets, daily range): BP systolic 101–145; BP diastolic 71–94
[2021-05-26] MEDS: SOD CHL 0.45% 1,000 ML IV SCH ×2 (02:36→17:01)
[2021-05-26] MEDS: InsuLIN REG 1unit/0.01ml Soln (100units/ml) SC SCH ×2 (06:00→12:00)
[2021-05-26] MEDS: ACCU-CHEK COMFORT CURVE STRIP VI SCH ×2 (06:13→12:22)
[2021-05-26] MEDS: HYDROcodone-ACET 5/325MG TAB PO PRN ×2 (09:08→15:25)
[2021-05-26] MEDS: METOPROLOL TARTRATE 25 MG TAB PO SCH ×2 (09:09→21:51)
[2021-05-26] MEDS: AMIODARONE HCL 200 MG TAB PO SCH ×2 (09:10→21:52)
[2021-05-26] MEDS: POTASSIUM EFFERVESENT TAB 25 MEQ GT SCH (10:00)
[2021-05-26] MEDS: MIDODRINE HCL 10 MG TAB PO SCH ×2 (10:00→21:51)
[2021-05-26] MEDS: DOCUSATE ORAL LIQUID 100 MG/10 ML UD GT SCH (10:24)
[2021-05-26] MEDS: PANTOPRAZOLE 40 MG/10 ML VIAL INJ IV SCH (10:24)
[2021-05-26] MEDS: NYSTATIN TOPICAL POWDER 15GM TOP SCH ×2 (10:25→21:53)
[2021-05-26] MEDS: ENOXAPARIN SOD 30 MG/0.3 ML SYRINGE SC SCH (10:25)
[2021-05-26 10:56] LABS: Basophils # (auto) 0 10 ^3/uL (0-0.2); Basophils % (auto) 0.3 % (0.0-2.0); Eosinophils # (auto) 0 10 ^3/uL (0-0.8); Eosinophils % (auto) 0.1 % (0.0-7.0); Hematocrit 37.3 % (36.0-46.0); Hemoglobin 12.4 g/dL (12.2-16.2); Lymphocytes # (auto) 0.8 10 ^3/uL (0.4-5.4); Lymphocytes % (auto) 7.7 % (10.0-50.0); Mean Corpuscular Hemoglobin 32.1 pg (28.0-32.0); Mean Corpuscular Hgb Conc. 33.3 g/dL (32.0-36.0); Mean Corpuscular Volume 96.4 fL (80.0-100.0); Monocytes # (auto) 0.5 10 ^3/uL (0-1.3); Monocytes % (auto) 5.5 % (0.0-12.0); Neutrophils # (auto) 8.5 10 ^3/uL (1.6-8.6); Neutrophils % (auto) 86.4 % (37.0-80.0); Nucleated Red Blood Cells % 0.1 %; Red Blood Cells 3.87 10^6/uL (4.0-5.20); Red Cell Distribution Width 15.4 % (11.8-14.3); White Blood Cell 9.9 10^3/uL (4.4-10.8)
[2021-05-26 11:22] LABS: Albumin 2.3 g/dL (3.4-5.0); Calcium 8.6 mg/dL (8.5-10.1); Potassium 4.4 mmol/L (3.5-5.1)
[2021-05-26 11:27] LABS: Bilirubin, Total 1.3 mg/dL (0.2-1.0); Total Protein 6.5 g/dL (6.4-8.2)
[2021-05-26] MEDS: MAGNESIUM OXIDE 400 MG TAB PO SCH (12:21)
[2021-05-26] MEDS: FUROSEMIDE 40 MG/4 ML VIAL IV SCH (12:21)
[2021-05-26] MEDS: Glucerna 1.2 Cal 1Liter BOTTLE GT SCH ×2 (15:21→20:51)
[2021-05-26] MEDS: METOPROLOL TARTRATE 1MG/1ML-5ML VIAL IV PRN (18:36)
[2021-05-26] MEDS ORDERED: AMIODARONE HCL 150 MG in D5W 5% 100 ML IV ONE (19:15)
[2021-05-27] VITALS (50 sets, daily range): BP systolic 89–135; BP diastolic 59–91
[2021-05-27] MEDS: Glucerna 1.2 Cal 1Liter BOTTLE GT SCH ×3 (02:30→20:18)
[2021-05-27] MEDS: SOD CHL 0.45% 1,000 ML IV SCH ×2 (05:00→18:05)
[2021-05-27] MEDS: InsuLIN REG 1unit/0.01ml Soln (100units/ml) SC SCH ×2 (06:00)
[2021-05-27] MEDS: ACCU-CHEK COMFORT CURVE STRIP VI SCH ×2 (06:10)
[2021-05-27] MEDS: MIDODRINE HCL 10 MG TAB PO SCH ×2 (10:00→22:00)
[2021-05-27] MEDS: MAGNESIUM OXIDE 400 MG TAB PO SCH (10:00)
[2021-05-27] MEDS: ENOXAPARIN SOD 30 MG/0.3 ML SYRINGE SC SCH (10:00)
[2021-05-27] MEDS: DOCUSATE ORAL LIQUID 100 MG/10 ML UD GT SCH (11:01)
[2021-05-27] MEDS: METOPROLOL TARTRATE 25 MG TAB PO SCH ×2 (11:01→22:00)
[2021-05-27] MEDS: AMIODARONE HCL 200 MG TAB PO SCH ×2 (11:01→22:00)
[2021-05-27] MEDS: NYSTATIN TOPICAL POWDER 15GM TOP SCH ×2 (11:03→22:00)
[2021-05-27] MEDS: HYDROcodone-ACET 5/325MG TAB PO PRN (21:30)
[2021-05-27] MEDS: PANTOPRAZOLE 40 MG/10 ML VIAL INJ IV SCH (22:00)
[2021-05-28] VITALS (35 sets, daily range): BP systolic 73–137; BP diastolic 42–78
[2021-05-28] MEDS: Glucerna 1.2 Cal 1Liter BOTTLE GT SCH ×4 (02:30→22:00)
[2021-05-28] MEDS: InsuLIN REG 1unit/0.01ml Soln (100units/ml) SC SCH ×4 (06:00→17:55)
[2021-05-28] MEDS: SOD CHL 0.45% 1,000 ML IV SCH (06:02)
[2021-05-28] MEDS: ACCU-CHEK COMFORT CURVE STRIP VI SCH ×4 (06:03→17:55)
[2021-05-28] MEDS: DOCUSATE ORAL LIQUID 100 MG/10 ML UD GT SCH (10:00)
[2021-05-28] MEDS: METOPROLOL TARTRATE 25 MG TAB PO SCH ×2 (10:00→22:00)
[2021-05-28] MEDS: ENOXAPARIN SOD 30 MG/0.3 ML SYRINGE SC SCH (10:03)
[2021-05-28] MEDS: MIDODRINE HCL 10 MG TAB PO SCH ×2 (10:03→22:00)
[2021-05-28] MEDS: PANTOPRAZOLE 40 MG/10 ML VIAL INJ IV SCH ×2 (10:03→22:00)
[2021-05-28] MEDS: MAGNESIUM OXIDE 400 MG TAB PO SCH (10:04)
[2021-05-28] MEDS: HYDROcodone-ACET 5/325MG TAB PO PRN (10:04)
[2021-05-28] MEDS: NYSTATIN TOPICAL POWDER 15GM TOP SCH ×2 (10:04→22:00)
[2021-05-28] MEDS: AMIODARONE HCL 200 MG TAB PO SCH ×2 (10:05→22:00)
[2021-05-28 10:18] LABS: Basophils # (auto) 0 10 ^3/uL (0-0.2); Basophils % (auto) 0.5 % (0.0-2.0); Eosinophils # (auto) 0 10 ^3/uL (0-0.8); Eosinophils % (auto) 0.2 % (0.0-7.0); Hematocrit 33.8 % (36.0-46.0); Hemoglobin 11.2 g/dL (12.2-16.2); Lymphocytes # (auto) 0.9 10 ^3/uL (0.4-5.4); Lymphocytes % (auto) 13.5 % (10.0-50.0); Mean Corpuscular Hgb Conc. 33.1 g/dL (32.0-36.0); Mean Corpuscular Volume 93.4 fL (80.0-100.0); Monocytes # (auto) 0.6 10 ^3/uL (0-1.3); Monocytes % (auto) 8.3 % (0.0-12.0); Neutrophils # (auto) 5.2 10 ^3/uL (1.6-8.6); Neutrophils % (auto) 77.5 % (37.0-80.0); Red Blood Cells 3.62 10^6/uL (4.0-5.20); Red Cell Distribution Width 15.4 % (11.8-14.3); White Blood Cell 6.7 10^3/uL (4.4-10.8)
[2021-05-28 11:53] LABS: Calcium 8.1 mg/dL (8.5-10.1); Potassium 3.7 mmol/L (3.5-5.1)
[2021-05-28 11:55] LABS: BUN/Creatinine Ratio 91.7
[2021-05-28] MEDS: MIDAZOLAM HCL 2MG/2ML 2ml VIAL (1mg/ml) IV PRN (13:53)
[2021-05-29] VITALS (29 sets, daily range): BP systolic 92–146; BP diastolic 55–101
[2021-05-29] MEDS: HYDROcodone-ACET 5/325MG TAB PO PRN ×3 (00:20→10:08)
[2021-05-29] MEDS: Glucerna 1.2 Cal 1Liter BOTTLE GT SCH ×4 (02:30→20:30)
[2021-05-29] MEDS: InsuLIN REG 1unit/0.01ml Soln (100units/ml) SC SCH ×4 (06:00→18:00)
[2021-05-29] MEDS: ACCU-CHEK COMFORT CURVE STRIP VI SCH ×4 (06:00→17:38)
[2021-05-29] MEDS: SOD CHL 0.45% 1,000 ML IV SCH ×4 (06:30→18:11)
[2021-05-29] MEDS: PHENYLEPHRINE IV 250 ML IV SCH ×2 (08:50→17:10)
[2021-05-29] MEDS ORDERED: DOCUSATE ORAL LIQUID 100 MG/10 ML UD GT PRN (09:45)
[2021-05-29] MEDS: MIDODRINE HCL 10 MG TAB PO SCH ×2 (10:00→22:00)
[2021-05-29] MEDS: METOPROLOL TARTRATE 25 MG TAB PO SCH ×3 (10:00→22:00)
[2021-05-29] MEDS: MAGNESIUM OXIDE 400 MG TAB PO SCH (10:07)
[2021-05-29] MEDS: PANTOPRAZOLE 40 MG/10 ML VIAL INJ IV SCH (10:07)
[2021-05-29] MEDS: ENOXAPARIN SOD 30 MG/0.3 ML SYRINGE SC SCH (10:12)
[2021-05-29] MEDS: NYSTATIN TOPICAL POWDER 15GM TOP SCH ×2 (10:12→22:00)
[2021-05-29] MEDS: AMIODARONE HCL 200 MG TAB PO SCH ×2 (10:14→22:00)
[2021-05-29] MEDS: MIDAZOLAM HCL 2MG/2ML 2ml VIAL (1mg/ml) IV PRN (20:47)
[2021-05-30] VITALS (28 sets, daily range): BP systolic 103–154; BP diastolic 63–101
[2021-05-30] MEDS: PHENYLEPHRINE IV 250 ML IV SCH ×2 (01:30→09:50)
[2021-05-30] MEDS: Glucerna 1.2 Cal 1Liter BOTTLE GT SCH ×4 (02:30→20:30)
[2021-05-30] MEDS: ACCU-CHEK COMFORT CURVE STRIP VI SCH ×4 (06:00→18:21)
[2021-05-30] MEDS: InsuLIN REG 1unit/0.01ml Soln (100units/ml) SC SCH ×4 (06:00→18:00)
[2021-05-30] MEDS: ENOXAPARIN SOD 30 MG/0.3 ML SYRINGE SC SCH (09:37)
[2021-05-30] MEDS: MAGNESIUM OXIDE 400 MG TAB PO SCH (09:38)
[2021-05-30] MEDS: AMIODARONE HCL 200 MG TAB PO SCH ×2 (09:38→22:00)
[2021-05-30] MEDS: PANTOPRAZOLE 40 MG/10 ML VIAL INJ IV SCH (09:38)
[2021-05-30] MEDS: METOPROLOL TARTRATE 25 MG TAB PO SCH ×2 (09:38→22:00)
[2021-05-30] MEDS: MIDODRINE HCL 10 MG TAB PO SCH ×2 (09:39→22:00)
[2021-05-30] MEDS: NYSTATIN TOPICAL POWDER 15GM TOP SCH ×2 (09:39→22:00)
[2021-05-30] MEDS: ALPRAZolam 0.5 MG TAB PO SCH ×2 (14:00→22:00)
[2021-05-30] MEDS ORDERED: APIXABAN 5 MG TAB PO SCH (22:00)
[2021-05-31] VITALS (29 sets, daily range): BP systolic 98–128; BP diastolic 58–95
[2021-05-31] MEDS: Glucerna 1.2 Cal 1Liter BOTTLE GT SCH ×4 (02:30→20:30)
[2021-05-31 04:55] LABS: Basophils # (auto) 0 10 ^3/uL (0-0.2); Basophils % (auto) 0.7 % (0.0-2.0); Eosinophils # (auto) 0.1 10 ^3/uL (0-0.8); Eosinophils % (auto) 1.2 % (0.0-7.0); Hematocrit 33.1 % (36.0-46.0); Hemoglobin 11.2 g/dL (12.2-16.2); Lymphocytes # (auto) 0.7 10 ^3/uL (0.4-5.4); Lymphocytes % (auto) 16.2 % (10.0-50.0); Mean Corpuscular Hemoglobin 32.1 pg (28.0-32.0); Mean Corpuscular Hgb Conc. 33.9 g/dL (32.0-36.0); Mean Corpuscular Volume 94.9 fL (80.0-100.0); Monocytes # (auto) 0.5 10 ^3/uL (0-1.3); Monocytes % (auto) 10.6 % (0.0-12.0); Neutrophils # (auto) 3.1 10 ^3/uL (1.6-8.6); Neutrophils % (auto) 71.3 % (37.0-80.0); Nucleated Red Blood Cells % 0.2 %; Red Blood Cells 3.49 10^6/uL (4.0-5.20); Red Cell Distribution Width 15.6 % (11.8-14.3); White Blood Cell 4.3 10^3/uL (4.4-10.8)
[2021-05-31 05:04] LABS: INR 1.16 (0.9-1.15); Partial Thromboplastin Time 25.7 sec (23.6-33.0)
[2021-05-31 05:11] LABS: Calcium 8.2 mg/dL (8.5-10.1); Potassium 3.3 mmol/L (3.5-5.1)
[2021-05-31] MEDS: ALPRAZolam 0.5 MG TAB PO SCH ×3 (06:00→22:00)
[2021-05-31] MEDS: ACCU-CHEK COMFORT CURVE STRIP VI SCH ×4 (06:00→18:08)
[2021-05-31] MEDS: InsuLIN REG 1unit/0.01ml Soln (100units/ml) SC SCH ×4 (06:00→18:00)
[2021-05-31 06:02] LABS: BUN/Creatinine Ratio 86.7
[2021-05-31] MEDS: SOD CHL 0.45% 1,000 ML IV SCH (09:16)
[2021-05-31] MEDS: MIDODRINE HCL 10 MG TAB PO SCH ×2 (10:00→22:00)
[2021-05-31] MEDS: METOPROLOL TARTRATE 25 MG TAB PO SCH ×2 (10:00→22:00)
[2021-05-31] MEDS: PANTOPRAZOLE 40 MG/10 ML VIAL INJ IV SCH (10:04)
[2021-05-31] MEDS: MAGNESIUM OXIDE 400 MG TAB PO SCH (10:05)
[2021-05-31] MEDS: NYSTATIN TOPICAL POWDER 15GM TOP SCH ×2 (10:05→22:00)
[2021-05-31] MEDS: AMIODARONE HCL 200 MG TAB PO SCH ×2 (10:05→22:00)
[2021-05-31] MEDS ORDERED: POTASSIUM EFFERVESENT TAB 25 MEQ GT ONE (14:15)
[2021-05-31] MEDS: APIXABAN 5 MG TAB PO SCH (14:30)
[2021-05-31] MEDS ORDERED: VANCOMYCIN PER PHARMACY 0 MG IV SCH (19:00)
[2021-05-31] MEDS: VANCOMYCIN 1GM/250ML 250 ML IV SCH (20:00)
[2021-05-31 21:17] LABS: Basophils # (auto) 0.1 10 ^3/uL (0-0.2); Basophils % (auto) 1.8 % (0.0-2.0); Eosinophils # (auto) 0.2 10 ^3/uL (0-0.8); Eosinophils % (auto) 3.7 % (0.0-7.0); Hematocrit 32.5 % (36.0-46.0); Lymphocytes # (auto) 0.6 10 ^3/uL (0.4-5.4); Mean Corpuscular Hemoglobin 32.2 pg (28.0-32.0); Mean Corpuscular Hgb Conc. 33.9 g/dL (32.0-36.0); Monocytes # (auto) 0.5 10 ^3/uL (0-1.3); Monocytes % (auto) 10.2 % (0.0-12.0); Neutrophils # (auto) 3.5 10 ^3/uL (1.6-8.6); Neutrophils % (auto) 71.3 % (37.0-80.0); Nucleated Red Blood Cells % 0.2 %; Red Blood Cells 3.42 10^6/uL (4.0-5.20); Red Cell Distribution Width 15.7 % (11.8-14.3); White Blood Cell 4.9 10^3/uL (4.4-10.8)
[2021-06-01] VITALS (21 sets, daily range): BP systolic 97–131; BP diastolic 62–84
[2021-06-01] MEDS: VANCOMYCIN 1GM/250ML 250 ML IV SCH ×3 (02:00→17:15)
[2021-06-01] MEDS: Glucerna 1.2 Cal 1Liter BOTTLE GT SCH ×3 (02:30→14:12)
[2021-06-01] MEDS: APIXABAN 5 MG TAB PO SCH ×2 (02:30→09:32)
[2021-06-01] MEDS: PHENYLEPHRINE IV 250 ML IV SCH ×6 (03:30→19:35)
[2021-06-01] MEDS: SOD CHL 0.45% 1,000 ML IV SCH ×3 (04:30→19:00)
[2021-06-01 05:32] LABS: Hematocrit 30.6 % (36.0-46.0); Hemoglobin 10.6 g/dL (12.2-16.2); Mean Corpuscular Hemoglobin 32.7 pg (28.0-32.0); Mean Corpuscular Hgb Conc. 34.5 g/dL (32.0-36.0); Mean Corpuscular Volume 94.9 fL (80.0-100.0); Red Blood Cells 3.22 10^6/uL (4.0-5.20); Red Cell Distribution Width 15.7 % (11.8-14.3); White Blood Cell 4.5 10^3/uL (4.4-10.8)
[2021-06-01 05:35] LABS: Basophils % (manual) 0 (0.0-2.0); Blast Cells 0; Metamyelocytes % 0; Myelocytes % 0; Promyelocytes % 0; Reactive Lymphocytes 0
[2021-06-01] MEDS: ALPRAZolam 0.5 MG TAB PO SCH ×2 (06:00→14:00)
[2021-06-01] MEDS: ACCU-CHEK COMFORT CURVE STRIP VI SCH ×4 (06:00→17:08)
[2021-06-01] MEDS: InsuLIN REG 1unit/0.01ml Soln (100units/ml) SC SCH ×4 (06:00→17:08)
[2021-06-01 06:25] LABS: Band Neutrophils % (manual) 4; Eosinophils % (manual) 2 (0-7); Lymphocytes % (manual) 20 (10.0-50.0); Monocytes % (manual) 9 (0-12)
[2021-06-01] MEDS: PANTOPRAZOLE 40 MG/10 ML VIAL INJ IV SCH (09:31)
[2021-06-01] MEDS: MAGNESIUM OXIDE 400 MG TAB PO SCH (09:32)
[2021-06-01] MEDS: AMIODARONE HCL 200 MG TAB PO SCH (09:32)
[2021-06-01] MEDS: MIDODRINE HCL 10 MG TAB PO SCH (09:32)
[2021-06-01] MEDS: HYDROcodone-ACET 5/325MG TAB PO PRN ×2 (09:33→16:19)
[2021-06-01] MEDS: METOPROLOL TARTRATE 25 MG TAB PO SCH (09:34)
[2021-06-01] MEDS: NYSTATIN TOPICAL POWDER 15GM TOP SCH (09:34)
[2021-06-02] MEDS ORDERED: VANCOMYCIN 1GM/250ML 250 ML IV SCH (01:00)
== END 2021-06-01 20:20 | DRG 5 ==
LOC: ER 18:30 → OVERFLOW 04-14 01:48 → OBSVTOIN 04-14 01:48 → ICU WEST 04-18 07:52
PROVIDERS: ADMIT Internal Medicine; ATTEND Internal Medicine
PROC: 5A09357 Assistance with Respiratory Ventilation, Less than 24 Consecutive Hours, Continuous Positive Airway Pressure (ICD-10-PCS; 2021-04-13)
PROC: XW033E5 Introduction of Remdesivir Anti-infective into Peripheral Vein, Percutaneous Approach, New Technology Group 5 (ICD-10-PCS; 2021-04-14)
PROC: 5A09357 Assistance with Respiratory Ventilation, Less than 24 Consecutive Hours, Continuous Positive Airway Pressure (ICD-10-PCS; 2021-04-14)
PROC: 05HF33Z Insertion of Infusion Device into Left Cephalic Vein, Percutaneous Approach (ICD-10-PCS; 2021-04-14)
PROC: B54NZZA Ultrasonography of Left Upper Extremity Veins, Guidance (ICD-10-PCS; 2021-04-14)
PROC: 5A09357 Assistance with Respiratory Ventilation, Less than 24 Consecutive Hours, Continuous Positive Airway Pressure (ICD-10-PCS; 2021-04-15)
PROC: 5A1955Z Respiratory Ventilation, Greater than 96 Consecutive Hours (ICD-10-PCS; 2021-04-16)
PROC: 0BH17EZ Insertion of Endotracheal Airway into Trachea, Via Natural or Artificial Opening (ICD-10-PCS; 2021-04-16)
PROC: B548ZZA Ultrasonography of Superior Vena Cava, Guidance (ICD-10-PCS; 2021-04-18)
PROC: 02HV33Z Insertion of Infusion Device into Superior Vena Cava, Percutaneous Approach (ICD-10-PCS; 2021-04-18)
PROC: 5A09357 Assistance with Respiratory Ventilation, Less than 24 Consecutive Hours, Continuous Positive Airway Pressure (ICD-10-PCS; 2021-05-08)
PROC: 5A0935A Assistance with Respiratory Ventilation, Less than 24 Consecutive Hours, High Flow/Velocity Cannula (ICD-10-PCS; 2021-05-08)
PROC: 5A09357 Assistance with Respiratory Ventilation, Less than 24 Consecutive Hours, Continuous Positive Airway Pressure (ICD-10-PCS; 2021-05-09)
PROC: 5A09357 Assistance with Respiratory Ventilation, Less than 24 Consecutive Hours, Continuous Positive Airway Pressure (ICD-10-PCS; 2021-05-10)
PROC: 5A1955Z Respiratory Ventilation, Greater than 96 Consecutive Hours (ICD-10-PCS; 2021-05-10)
PROC: 0BH17EZ Insertion of Endotracheal Airway into Trachea, Via Natural or Artificial Opening (ICD-10-PCS; 2021-05-10)
PROC: 05H933Z Insertion of Infusion Device into Right Brachial Vein, Percutaneous Approach (ICD-10-PCS; 2021-05-23)
PROC: B54MZZA Ultrasonography of Right Upper Extremity Veins, Guidance (ICD-10-PCS; 2021-05-23)
PROC: 0DH63UZ Insertion of Feeding Device into Stomach, Percutaneous Approach (ICD-10-PCS; 2021-05-25)
PROC: 05HA33Z Insertion of Infusion Device into Left Brachial Vein, Percutaneous Approach (ICD-10-PCS; 2021-05-25)
PROC: B54NZZA Ultrasonography of Left Upper Extremity Veins, Guidance (ICD-10-PCS; 2021-05-25)
PROC: 0B110F4 Bypass Trachea to Cutaneous with Tracheostomy Device, Open Approach (ICD-10-PCS; principal; 2021-05-25 10:07)
DX: U07.1 COVID-19 (principal); J12.82 Pneumonia due to coronavirus disease 2019; A41.89 Other specified sepsis; G92.8 Other toxic encephalopathy; I50.43 Acute on chronic combined systolic (congestive) and diastolic (congestive) heart failure; E87.0 Hyperosmolality and hypernatremia; I95.9 Hypotension, unspecified; D69.59 Other secondary thrombocytopenia; J96.01 Acute respiratory failure with hypoxia; J96.02 Acute respiratory failure with hypercapnia; E11.65 Type 2 diabetes mellitus with hyperglycemia; N17.9 Acute kidney failure, unspecified; J44.0 Chronic obstructive pulmonary disease with (acute) lower respiratory infection; J44.1 Chronic obstructive pulmonary disease with (acute) exacerbation; I11.0 Hypertensive heart disease with heart failure; E66.01 Morbid (severe) obesity due to excess calories; J98.11 Atelectasis; I48.20 Chronic atrial fibrillation, unspecified; F41.9 Anxiety disorder, unspecified; G47.33 Obstructive sleep apnea (adult) (pediatric); Z68.43 Body mass index [BMI] 50.0-59.9, adult; I48.0 Paroxysmal atrial fibrillation; E87.1 Hypo-osmolality and hyponatremia; E87.6 Hypokalemia; E88.09 Other disorders of plasma-protein metabolism, not elsewhere classified; N93.9 Abnormal uterine and vaginal bleeding, unspecified; Z99.11 Dependence on respirator [ventilator] status; K29.70 Gastritis, unspecified, without bleeding; E78.5 Hyperlipidemia, unspecified; K62.5 Hemorrhage of anus and rectum; Z79.899 Other long term (current) drug therapy; Z82.49 Family history of ischemic heart disease and other diseases of the circulatory system; Z83.3 Family history of diabetes mellitus; Z95.5 Presence of coronary angioplasty implant and graft; Z79.01 Long term (current) use of anticoagulants
CPT/HCPCS: 36415; 36600; 71045; 71275; 80048; 80053; 80076; 80202; 81001; 82270; 82728; 82805; 82962; 83605; 83735; 83880; 84132; 84484; 85007; 85025; 85027; 85379; 85610; 85730; 86141; 86850; 86900; 86901; 87040; 87070; 87081; 87205; 87426; 93005; 93306; 93970; 93971; 94002; 94003; 94640; 94660; 96361; 96374; A4605; A4618; C9113; G0378; J0330; J0696; J1100; J1815; J2250; J2704; J3480; J3490; J7060